=== PATIENT | male | born 1960 | race Caucasian/White ===

== ENCOUNTER 2017-04-13 06:08 | Inpatient (IN) ==
[2017-04-13] MEDS ORDERED: Tdap (Boostrix) Vaccine 0.5 ML SYRINGE IM ONE (06:17)
[2017-04-13] MEDS ORDERED: 0.9 % Sodium Chloride 1,000 ML IVC ONE (06:17)
[2017-04-13] MEDS ORDERED: Ketorolac 15 MG/ML VIAL IVP ONE (06:17)
[2017-04-13] MEDS ORDERED: Vancomycin 1,000 MG in D5% in Water 250 ML IVPB ONE (06:18)
[2017-04-13 06:35] LABS: Basophils # 0.1 K/mcL (0.0-0.2); Basophils % 0.7 %; Eosinophils # 0.2 K/mcL (0.0-0.6); Eosinophils % 2.4 %; Hematocrit 45.2 % (37.5-50.1); Hemoglobin 15.4 g/dL (12.9-16.9); Immature Granulocytes % 0.3 % (0-4); Lymphocytes # 1.4 K/mcL (0.6-4.6); Lymphocytes % 14.6 %; Mean Corpuscular HGB Conc 34.1 g/dL (31.6-35.5); Mean Corpuscular Hemoglobin 31.6 pg (28.0-33.3); Mean Corpuscular Volume 92.8 fL (83.0-100.0); Mean Platelet Volume 8.8 fL (9.4-12.4); Monocytes # 0.8 K/mcL (0.0-1.3); Monocytes % 7.6 %; Neutrophils # 7.3 K/mcL (1.6-8.9); Platelet Count 424 K/mcL (140-400); Red Blood Count 4.87 M/mcL (4.19-5.50); Red Cell Distribution Width 12.4 % (11.5-14.5); Segmented Neutrophils % 74.4 %
--- NOTE | 2017-04-13 06:40 | Emergency Department Note ---
Disposition Clinical Impression: Hyperglycemia, unspecified Septic joint of right elbow Qualifiers: Septic arthritis organism: staphylococcal Qualified Code(s): M00.021 - Staphylococcal arthritis, right elbow Disposition: Admitted As Inpatient Condition: Fair Forms: ED Satisfaction Letter Extremity Problem HPI - General Chief complaint: ED Extremity Problem,Nontraumatic Stated complaint: swollen elbow Time Seen by Provider: 04/13/17 06:12 Source: patient Mode of arrival: private vehicle Limitations: no limitations Nursing Notes Reviewed: Yes Vital Signs Reviewed: Yes - History of Present Illness Pt Subjective Complaint: joint swelling, joint paint Onset (ago): week(s) Consistency: constant, Worsening Injury Location: right Pain Scale: 7 Quality: aching Radiation: proximal, distal Improves with: immobilization Worsens with: range of motion, palpation Associated symptoms: Reports: arthralgias, change in appearance, swelling, redness. Denies: chest pain, shortness of breath, fever, myalgias Context: other (Patient was seen here on 04/03 for same. Joint was aspirated. Culture grew staph - sensitive to almost everything, including Bactrim. Patient started on Bactrim and Tdap given. Patient was supposed to F/U with AB&J on but did not go. Pain, swelling and redness are now worse. ) - Related Data Previous Rx's Medication Instructions Recorded Ibuprofen [Motrin] 600 mg PO Q6HR PRN 7 Days 04/03/17 Sulfamethoxazole/Trimeth DS 1 each PO BID 10 Days 04/03/17 [Bactrim DS] Allergies Allergy/AdvReac Type Severity Reaction Status Date / Time No Known Allergies Allergy Verified 04/03/17 19:23 All systems ED: reviewed and negative except as stated. Review of Systems: As Per HPI Constitutional: Denies: fever, chills, weakness, night sweats Cardiovascular: Denies: chest pain, palpitations, dyspnea on exertion Gastrointestinal: Denies: nausea, vomiting Musculoskeletal: Reports: as per HPI, joint swelling, arthralgia. Denies: back pain, neck pain Neurological: Denies: headache, weakness, numbness, paresthesias Hematological/Lymphatic: Denies: easy bleeding, easy bruising, lymphadenopathy Past Medical History - Past Medical History Attestation: Yes The following information was validated with the patient. Source: patient Medical history: Reports: diabetes, hypertension Psychiatric history: Reports: no psych history - Social History Smoking Status: Current every day smoker Smokeless Tobacco Status: No Alcohol use: Reports: none Drug use: Reports: none Physical Exam - General Limitations: no limitations General appearance: alert, in no apparent distress - Head Head exam: atraumatic, normocephalic, normal inspection - Eye Eye exam: Present: normal appearance, PERRL. Absent: scleral icterus, conjunctival injection, periorbital swelling - ENT ENT exam: mucous membranes moist - Neck Neck exam: Present: normal inspection - Respiratory Respiratory exam: Present: normal lung sounds bilaterally. Absent: respiratory distress - Cardiovascular Cardiovascular exam: Present: regular rate, normal rhythm, normal heart sounds - Extremities Exam Extremities exam: Present: tenderness, normal capillary refill, joint swelling ( right elbow). Absent: full ROM - Expanded Upper Extremity Exam Shoulder exam: Present: normal inspection, full ROM. Absent: tenderness, erythema Arm exam: Present: tenderness (distal right), swelling (mild, distal right lateral), erythema (distal right) Elbow exam: Present: tenderness, swelling, erythema, pain w/ pronation/ supination, tenderness over radial head. Absent: full ROM, deformity, crepitus Forearm/Wrist exam: Present: normal inspection, full ROM. Absent: tenderness, swelling Hand exam: Present: normal inspection, full ROM. Absent: tenderness, swelling Neuromotor exam: Normal: wrist extension, thumb opposition, thumb IP flexion, thumb adduction, fingers 2-5 abduction Neurosensory exam: Normal: radial nerve, ulnar nerve, median nerve Hand tendon exam: Normal: flexor digitorum profundus (location), flexor digitorum superficialis (location), extensor tendon (location) Vascular exam: Normal: capillary refill, radial pulse, ulnar pulse - Back Exam Back exam: Present: normal inspection - Neurological Exam Neurological exam: Present: alert, oriented X3, CN II-XII intact, normal gait. Absent: motor sensory deficit - Psychiatric Psychiatric exam: Present: normal affect, normal mood - Skin Skin exam: Present: warm, dry, intact Course Course Narrative: Patient was seen here on April 03 for right elbow redness, swelling and pain. He had labs and an x-ray done as well as a joint aspiration with culture, and crystal analysis. He was given Bactrim T dap and NSAIDs and was given a follow- up appointment to be seen by [facility] on the at [facility]. He did not follow-up and states that he thinks there were only 10 Bactrim capsules in the bottle of antibiotics prescribed for him. He has had increased pain, swelling and redness, but denies fever, chills, nausea, vomiting or malaise. He also denies paresthesias or weakness. He denies known trauma to the elbow. However , there is an abrasion on the olecranon. Labs and repeat imaging ordered. Vancomycin and toradol ordered. Patient has essentially failed outpatient treatment of probable septic joint. Ortho will be consulted at [address] De La Torre was previously consulted on April 03 and he is on today at 8 AM. Hospitalist has been paged for admission as the patient has multiple co-morbidities. Case was discusssed with Dr. Hussein. He has seen the patient, reviewed the lab and xray findings, and agrees with the assessment and plan. Vital Signs Temperature 98 F 04/13/17 06:09 Pulse Rate 89 04/13/17 06:09 Respiratory Rate 18 04/13/17 06:09 Blood Pressure 127/87 04/13/17 06:09 O2 Sat by Pulse Oximetry 96 04/13/17 06:09 Temperature 98 F 04/13/17 06:09 Pulse Rate 89 04/13/17 06:09 Respiratory Rate 18 04/13/17 06:09 Blood Pressure 127/87 04/13/17 06:09 O2 Sat by Pulse Oximetry 96 04/13/17 06:09 Oxygen Delivery Oxygen Delivery Room Air Extremity Problem, Nontraumati - Medical Records Medical records reviewed: Yes I reviewed the patient's medical records. - Lab Data Lab results reviewed: Yes I reviewed the patient's lab results. Lab results narrative: Laboratory Last Values WBC 9.9 K/mcL (4.3-11.1) 04/13/17 06:27 RBC 4.87 M/mcL (4.19-5.50) 04/13/17 06:27 Hgb 15.4 g/dL (12.9-16.9) 04/13/17 06:27 Hct 45.2 % (37.5-50.1) 04/13/17 06:27 MCV 92.8 fL (83.0-100.0) 04/13/17 06:27 MCH 31.6 pg (28.0-33.3) 04/13/17 06: MCHC 34.1 g/dL (31.6-35.5) 04/13/17 06: RDW 12.4 % (11.5-14.5) 04/13/17 06:27 Plt Count 424 K/mcL (140-400) H 04/13/17 06:27 MPV 8.8 fL (9.4-12.4) L 04/13/17 06: Immature Gran % 0.3 % (0-4) 04/13/17 06: Seg Neutrophils % 74.4 % 04/13/17 06: Lymphocytes % 14.6 % 04/13/17 06: Monocytes % 7.6 % 04/13/17 06: Eosinophils % 2.4 % 04/13/17 06: Basophils % 0.7 % 04/13/17 06: Neutrophils # 7.3 K/mcL (1.6-8.9) 04/13/17 06: Lymphocytes # 1.4 K/mcL (0.6-4.6) 04/13/17 06:27 Monocytes # 0.8 K/mcL (0.0-1.3) 04/13/17 06: Eosinophils # 0.2 K/mcL (0.0-0.6) 04/13/17 06: Basophils # 0.1 K/mcL (0.0-0.2) 04/13/17 06:27 ESR >= 130 mm/hr (0-10) H 04/13/17 06:27 Sodium 133 mEq/L (136-145) L 04/13/17 06:27 Potassium 4.1 mEq/L (3.5-4.5) 04/13/17 06: Chloride 96 mEq/L (98-109) L 04/13/17 06: Carbon Dioxide 28 mEq/L (19-29) 04/13/17 06:27 BUN 14 mg/dL (8-26) 04/13/17 06:27 Creatinine 0.96 mg/dL (0.72-1.25) 04/13/17 06:27 Est GFR ( Amer) > 60 (> 60) 04/13/17 06:27 Est GFR (Non-Af Amer) > 60 (> 60) 04/13/17 06:27 BUN/Creatinine Ratio 15 (6-26) 04/13/17 06:27 Glucose 321 mg/dL (70-99) H 04/13/17 06:27 Calculated Osmolality 289 (280-300) 04/13/17 06:27 Calcium 10.1 mg/dL (8.6-10.8) 04/13/17 06:27 C-Reactive Protein 79 mg/L (Less than 5) H 04/13/17 06:27 Result diagrams: 04/13/17 06:27 Lab Results 04/13/17 Range/Units 06:27 WBC 9.9 (4.3-11.1) K/mcL RBC 4.87 (4.19-5.50) M/mcL Hgb 15.4 (12.9-16.9) g/dL Hct 45.2 (37.5-50.1) % MCV 92.8 (83.0-100.0) fL MCH 31.6 (28.0-33.3) pg MCHC 34.1 (31.6-35.5) g/dL RDW 12.4 (11.5-14.5) % Plt Count 424 H (140-400) K/mcL MPV 8.8 L (9.4-12.4) fL Immature Gran % 0.3 (0-4) % Seg Neutrophils % 74.4 % Lymphocytes % 14.6 % Monocytes % 7.6 % Eosinophils % 2.4 % Basophils % 0.7 % Neutrophils # 7.3 (1.6-8.9) K/mcL Lymphocytes # 1.4 (0.6-4.6) K/mcL Monocytes # 0.8 (0.0-1.3) K/mcL Eosinophils # 0.2 (0.0-0.6) K/mcL Basophils # 0.1 (0.0-0.2) K/mcL - Radiology Data Radiology results reviewed: Yes I reviewed the patient's radiology results. Elbow X-Ray 04/13/17 06:18 IMPRESSION: 1. Suspected avulsion injury of an olecranon enthesophyte at the insertion of the right triceps brachii tendon with new mild superior displacement. 2. Persistent soft tissue swelling posterior to the right olecranon process potentially due to hematoma, cellulitis, or olecranon bursitis. 3. Persistent moderate right elbow joint effusion with no visualized intra-articular fracture. A tiny bony fragment adjacent to the right ulnar coronary process appears related to remote injury. D/ / Shai Hankins MD / Shai Hankins MD Interpreting Provider: Shai Hankins MD
[2017-04-13 06:48] LABS: BUN/Creatinine Ratio 15 (6-26); Blood Urea Nitrogen 14 mg/dL (8-26); Calcium 10.1 mg/dL (8.6-10.8); Carbon Dioxide 28 mEq/L (19-29); Chloride 96 mEq/L (98-109); Glucose 321 mg/dL (70-99); Osmolality,Calculated 289 (280-300); Potassium 4.1 mEq/L (3.5-4.5); Sodium 133 mEq/L (136-145); eGFR For African Americans > 60 (> 60); eGFR For Non-African Americans > 60 (> 60)
--- NOTE | 2017-04-13 07:02 | Emergency Department Note ---
Disposition Clinical Impression: Septic joint of right elbow, Hyperglycemia, unspecified Disposition: Admitted As Inpatient Condition: Fair General Adult HPI - General Chief complaint: ED Extremity Problem,Nontraumatic Stated complaint: swollen elbow Time Seen by Provider: 04/13/17 06:12 Source: patient Mode of arrival: private vehicle Limitations: no limitations - History of Present Illness Pain Scale: 7 - Related Data Home Medications Medication Instructions Recorded Confirmed No Known Home Drugs 04/13/17 04/13/17 Allergies Allergy/AdvReac Type Severity Reaction Status Date / Time No Known Allergies Allergy Verified 04/03/17 19:23 Constitutional: Denies: fever, chills, weakness, night sweats Cardiovascular: Denies: chest pain, palpitations, dyspnea on exertion Gastrointestinal: Denies: nausea, vomiting Musculoskeletal: Reports: as per HPI, joint swelling, arthralgia. Denies: back pain, neck pain Neurological: Denies: headache, weakness, numbness, paresthesias Hematological/Lymphatic: Denies: easy bleeding, easy bruising, lymphadenopathy Past Medical History - Past Medical History Medical history: Reports: diabetes, hypertension Psychiatric history: Reports: no psych history - Social History Smoking Status: Current every day smoker Smokeless Tobacco Status: No Alcohol use: Reports: none Drug use: Reports: none Physical Exam - General Limitations: no limitations General appearance: alert, in no apparent distress Course Vital Signs Temperature 98 F 04/13/17 06:09 Pulse Rate 89 04/13/17 06:09 Respiratory Rate 18 04/13/17 06:09 Blood Pressure 127/87 04/13/17 06:09 O2 Sat by Pulse Oximetry 96 04/13/17 06:09 Temperature 98.4 F 04/14/17 06:41 Pulse Rate 73 04/14/17 06:41 Respiratory Rate 16 04/14/17 06:41 Blood Pressure 104/73 04/14/17 06:41 O2 Sat by Pulse Oximetry 97 04/14/17 06:41 Oxygen Delivery Oxygen Delivery Room Air Medical Decision Making - Lab Data Result diagrams: 04/14/17 05:44 04/13/17 06:27 Lab Results 04/13/17 04/13/17 04/13/17 Range/Units 06:27 06:27 06:27 WBC 9.9 (4.3-11.1) K/mcL RBC 4.87 (4.19-5.50) M/mcL Hgb 15.4 (12.9-16.9) g/dL Hct 45.2 (37.5-50.1) % MCV 92.8 (83.0-100.0) fL MCH 31.6 (28.0-33.3) pg MCHC 34.1 (31.6-35.5) g/dL RDW 12.4 (11.5-14.5) % Plt Count 424 H (140-400) K/mcL MPV 8.8 L (9.4-12.4) fL Immature Gran % 0.3 (0-4) % Seg Neutrophils % 74.4 % Lymphocytes % 14.6 % Monocytes % 7.6 % Eosinophils % 2.4 % Basophils % 0.7 % Neutrophils # 7.3 (1.6-8.9) K/mcL Lymphocytes # 1.4 (0.6-4.6) K/mcL Monocytes # 0.8 (0.0-1.3) K/mcL Eosinophils # 0.2 (0.0-0.6) K/mcL Basophils # 0.1 (0.0-0.2) K/mcL ESR >= 130 H (0-10) mm/hr Sodium 133 L (136-145) mEq/L Potassium 4.1 (3.5-4.5) mEq/L Chloride 96 L (98-109) mEq/L Carbon Dioxide 28 (19-29) mEq/L BUN 14 (8-26) mg/dL Creatinine 0.96 (0.72-1.25) mg/dL Est GFR ( Amer) > 60 (> 60) Est GFR (Non-Af Amer) > 60 (> 60) BUN/Creatinine Ratio 15 (6-26) Glucose 321 H (70-99) mg/dL Calculated Osmolality 289 (280-300) Calcium 10.1 (8.6-10.8) mg/dL C-Reactive Protein (Less than 5) mg/L 04/13/17 Range/Units 06:27 WBC (4.3-11.1) K/mcL RBC (4.19-5.50) M/mcL Hgb (12.9-16.9) g/dL Hct (37.5-50.1) % MCV (83.0-100.0) fL MCH (28.0-33.3) pg MCHC (31.6-35.5) g/dL RDW (11.5-14.5) % Plt Count (140-400) K/mcL MPV (9.4-12.4) fL Immature Gran % (0-4) % Seg Neutrophils % % Lymphocytes % % Monocytes % % Eosinophils % % Basophils % % Neutrophils # (1.6-8.9) K/mcL Lymphocytes # (0.6-4.6) K/mcL Monocytes # (0.0-1.3) K/mcL Eosinophils # (0.0-0.6) K/mcL Basophils # (0.0-0.2) K/mcL ESR (0-10) mm/hr Sodium (136-145) mEq/L Potassium (3.5-4.5) mEq/L Chloride (98-109) mEq/L Carbon Dioxide (19-29) mEq/L BUN (8-26) mg/dL Creatinine (0.72-1.25) mg/dL Est GFR ( Amer) (> 60) Est GFR (Non-Af Amer) (> 60) BUN/Creatinine Ratio (6-26) Glucose (70-99) mg/dL Calculated Osmolality (280-300) Calcium (8.6-10.8) mg/dL C-Reactive Protein 79 H (Less than 5) mg/L Attestation Statement - Attestation Attestation: I examined this patient and my medical decision-making was reviewed with the [facility]. I agree with the documented findings, disposition and treatment plan as described except to the extent set forth below. [id number] time provided Patient continues to have a swollen, tender right elbow. Symptoms mostly to the posterior portion of his elbow. He recently had bursa aspiration by the mid -level provider. He was prescribed Bactrim but symptoms persist. Patient does have swelling over his olecranon bursa on exam. The [facility] is going to request admission to the hospitalist service with orthopedic consultation
[2017-04-13] MEDS ORDERED: *HR* Morphine 2 MG/ML SYRINGE IVP PRN (08:21)
[2017-04-13] MEDS ORDERED: Ketorolac 30 MG/ML VIAL IVP PRN (08:21)
[2017-04-13] MEDS ORDERED: Naloxone 0.4 MG/ML INJ IVP PRN (08:21)
[2017-04-13] MEDS ORDERED: *HR* Dextrose 50 % in Water (Syg) 50 ML SYRINGE IVP PRN (08:23)
[2017-04-13] MEDS ORDERED: Dextrose Gel 15 GM PO PRN ×2 (08:23)
[2017-04-13] MEDS ORDERED: D5% in Water 1,000 ML IVC PRN (08:23)
--- NOTE | 2017-04-13 10:00 | Internal Med History&Physical ---
Date of Encounter: 04/13/17 Time of Encounter: 08:35 Assessment and Plan (1) Cellulitis of right elbow Current visit: Yes Status: Acute Will admit for failed outpatient therapy Given worsening ESR and CRP, will continue with empiric IV abx ID and ortho consultation requested f/u blood cultures pain control (2) Olecranon bursitis Current visit: Yes Status: Acute ortho consultation requested by the ER physician will continue plan as listed above Qualifiers: Laterality: right Qualified Code(s): M70.21 - Olecranon bursitis, right elbow (3) Uncontrolled diabetes mellitus Current visit: Yes Status: Chronic Patient reports of not being on any medications for the last four months, states he is not able to afford these medications will obtain HbA1c continue sliding scale insulin algorithm monitor fingerstick and blood glucose Qualifiers: Diabetes mellitus type: type 2 Diabetes mellitus complication status: with unspecified complications Diabetes mellitus manager long term care insulin use: unspecified manager long term care insulin use status Qualified Code(s): E11.8 - Type 2 diabetes mellitus with unspecified complications; E11.65 - Type 2 diabetes mellitus with hyperglycemia (4) Hypertension Current visit: Yes Status: Chronic Reported history of HTN, however not on any antihypertensive medications at this time BP within acceptable range will continue to monitor Qualifiers: Hypertension type: essential hypertension Qualified Code(s): I10 - Essential (primary) hypertension (5) DVT prophylaxis Current visit: Yes Status: Acute Heparin SQ (6) Tobacco abuse Current visit: Yes Status: Acute smoking cessation counseling provided patient not ready to quit at this time refused nicotine replacement therapy (7) Medical non-compliance Current visit: Yes Status: Chronic social services specialist consultation as patient is not able to afford his medications Internal Medicine - H&P: HPI Chief complaint: right elbow pain Admitted From: Home Plans for Post Hospital Care: Home History of present illness: Mr. Sierra is a 56 year old male with PMH of HTN, DM, tobacco abuse, med noncompliance presents to the ER for worsening right elbow edema and redness. Patient was recently seen in the ER for right elbow bursitis and was discharged with PO Bactrim. He was asked to return if his symptoms persists. He reports of worsening of right elbow swelling and redness. During my evaluation, patient states he has been out of his medications for HTN and DM for four months now and he has been taking the antibiotic as prescribed. He denies any fevers or chills but reports discomfort in moving his right elbow. Denies any headache, chest pain, sob, abd pain, n/v, fever, or chills at this time. Social history: Every day smoker code status: Full code Past Med Surg Social Fam HX - Past Medical History Medical history: diabetes, hypertension Psychiatric history: no psych history - Social History Smoking Status: Current every day smoker Smokeless Tobacco Status: No Alcohol use: none Drug use: none - Family History Father Living Status: Cause of : heart attack Hx Family Cardiac Disorders: Yes Mother Living Status: Cause of : heart attack Hx Family Cardiac Disorders: Yes Internal Medicine - H&P: Meds No Known Home Drugs 04/13/17 [History] 3 Allergy/AdvReac Type Severity Reaction Status Date / Time No Known Allergies Allergy Verified 04/03/17 19:23 All Systems PM: A 10-system review of systems was performed and is negative for pertinent findings except as documented above in the HPI. - Constitutional Constitutional: as per HPI - Constitutional Vitals: Temp Pulse Resp BP Pulse Ox 98 F 79 18 111/79 96 04/13/17 06:09 04/13/17 08:30 04/13/17 09:11 04/13/17 09:11 04/13/17 08:30 General appearance: Present: A&O X 3, no acute distress, answers questions appropriately - Head Head exam: Present: atraumatic, normocephalic - Eye Eye exam: Present: conjuntiva pink, sclera anicteric - Respiratory Respiratory exam: Present: CTAB. Absent: respiratory distress, wheezes - Cardiovascular Cardiovascular exam: Present: RRR, +S1, +S2. Absent: diastolic murmur, gallop, rubs, systolic murmur - GI/Abdominal GI/Abdominal exam: Present: normal bowel sounds, soft, no peritoneal signs. Absent: distended, tenderness - Extremities Exam Extremities exam: Present: pedal edema (b/l LE pedal edema ), warm, radial pulses palpable and symmetrical. Absent: calf tenderness Additional comments: right elbow diffuse erythema and edema noted - Neurological Exam Neurological exam: Present: alert, oriented X3 - Psychiatric Psychiatric exam: Present: normal affect, normal mood Internal Med - H&P Results - Labs CBC & Chem 7: 04/13/17 06:27 04/13/17 06:27
--- NOTE | 2017-04-13 10:59 | Infectious Disease Consult ---
Date of Encounter: 04/13/17 Time of Encounter: 10:56 Assessment and Plan (1) Septic joint of right elbow Status: Acute Assessment and plan: Location: Right elbow. Etiology unclear. The patient denies any known traumatic injury prior to the onset of symptoms. Causative organism MSSA based on joint aspiration performed 04/03/17. Failed outpatient oral antibiotic therapy (five days of PO Bactrim). ESR >130. CRP 79. The patient has no SIRS criteria. X-ray of the right elbow shows a suspected avulsion injury of an olecranon enthesophyte at the insertion of the right triceps brachii tendon with new mild superior displacement, persistent soft tissue swelling posterior to the right olecranon process potentially due to hematoma, cellulitis, or olecranon bursitis , and persistent moderate right elbow joint effusion with no visualized intra- articular fracture. A tiny bony fragment adjacent to the right ulnar coronary process appears related to remote injury. Ortho has been consulted. Await their recommendations. Start cefazolin 2 grams IV Q8H. Duration of treatment depends on the clinical picture. Monitor renal function and dose-adjust antibiotics. Qualifiers: Septic arthritis organism: staphylococcal Qualified Code(s): M00.021 - Staphylococcal arthritis, right elbow (2) Cellulitis of right elbow Status: Acute Assessment and plan: Causative organism likely MSSA. Failed outpatient oral antibiotic therapy. Etiology not entirely clear since the patient denies trauma/injury, but there is a superficial abrasion noted to the posterior elbow. Await ortho's evaluation. Antibiotic recommendations as above. (3) Hypertension Status: Chronic Qualifiers: Hypertension type: essential hypertension Qualified Code(s): I10 - Essential (primary) hypertension (4) Tobacco abuse Status: Acute (5) Medical non-compliance Status: Chronic Assessment and plan: Has not been on his oral antihyperglycemics for about a month. Did not follow up with ortho as recommended. (6) Uncontrolled diabetes mellitus Status: Chronic Assessment and plan: Check HgbA1C. Recommend aggressive glucose monitoring and control to promote wound healing and prevent re-infection. Further management per the primary team. 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 Sierra is a 56 year old male is medical history of hypertension, diabetes, and tobacco abuse. The patient was admitted to the hospital April 12 for right elbow cellulitis. We are consulted April 13 for further evaluation and treatment recommendations regarding right elbow cellulitis. Patient is a 56-year-old male with past medical history as stated above. The patient reports that about a week ago he began to notice increased pain, swelling, and redness of the right elbow. He presented to the emergency department where he had a joint aspiration which revealed MSSA and the synovial fluid. He was treated with a 5 day course of oral Bactrim, but he did not noticed any improvement and the symptoms have continued to get worse. The patient was also instructed to follow up with orthopedics, which she did not. Upon arrival to the ER for this hospitalization, the patient was afebrile and hemodynamically stable. His white blood cell count normal. His ESR was markedly elevated at greater than 130 and a CRP was 79. Elbow x-ray revealed a suspected avulsion injury of an olecranon and the Rocio at the insertion of the right triceps break I tendon with new mild superior displacement, persistent soft tissue swelling posterior to the right olecranon process potentially due to hematoma, cellulitis, or olecranon bursitis, and persistent moderate right elbow joint effusion with no visualized intra-articular fracture. There is also noted to be a tiny bony fragment adjacent to the right ulnar coronary process that appears related to a remote injury. The patient was given a one-time dose of IV vancomycin. He was admitted to the hospital for further evaluation and treatment. Since admission, the patient has remained afebrile and hemodynamically stable. Orthopedics has been consulted and we are awaiting their recommendations. During my exam today, the patient endorses the history as stated above. He denies any fevers or chills or rigors. He denies any headache or neck pain. He denies any congestion, earache, or sore throat. He reports a chronic moist cough secondary to tobacco abuse, but denies any chest pain or shortness of breath. He denies any nausea, vomiting, diarrhea, or constipation. Her appetite changes. He is a diabetic but has been off his oral antihyperglycemic medications for about a month now and he does not check his glucose at home. He denies any oral thrush or new skin lesions. He states he was recently released from long term a couple of months ago where he spent 4 years. He denies any known chronic infections. CT smokes about a pack of cigarettes per day. He denies any alcohol or illicit drug use now or in the past. CC: Rodríguez Patel MD Past Med Surg Social Fam HX - Past Medical History Attestation: Yes The following information was validated with the patient. Source: patient, old records reviewed, nursing notes reviewed Medical history: diabetes, hypertension Psychiatric history: no psych history - Past Surgical History Surgical History: no surgical history - Social History Smoking Status: Current every day smoker Packs per day: 1 Smokeless Tobacco Status: No Alcohol use: none Drug use: none Occupational status: unemployed Current living situation: Home - Independent Activity Level: Independent ambulation Recent Out of Country Travel Within the Last 8 Weeks: No Exposure or Possible Exposure to Illness During Travel: No - Family History Father Living Status: Cause of : heart attack Hx Family Cardiac Disorders: Yes Mother Living Status: Cause of : heart attack Hx Family Cardiac Disorders: Yes Infectious Disease-CN:Meds No Known Home Drugs 04/13/17 [History] 3 Allergy/AdvReac Type Severity Reaction Status Date / Time No Known Allergies Allergy Verified 04/03/17 19:23 All systems: reviewed and no additional remarkable complaints except as stated Exam - Constitutional Vitals: Temp Pulse Resp BP Pulse Ox 98.4 F 76 18 124/76 97 04/13/17 10:03 04/13/17 10:03 04/13/17 10:03 04/13/17 10:03 04/13/17 10:03 General appearance: average body habitus, cooperative, no acute distress - Head Head exam: Present: atraumatic, normal inspection, normocephalic - Eye Eye exam: Present: EOMI, normal appearance, PERRL Pupils: Present: normal accommodation - ENT ENT exam: Present: mucous membranes moist - Neck Neck exam: Present: normal inspection - Respiratory Respiratory exam: Present: CTAB. Absent: rales, respiratory distress, rhonchi, wheezes - Cardiovascular Cardiovascular exam: Present: RRR, +S1, +S2 - GI/Abdominal GI/Abdominal exam: Present: normal bowel sounds, soft. Absent: distended, tenderness - Extremities Exam Extremities exam: Present: joint swelling (Right elbow), tenderness (Right posterior upper arm, right elbow) - Neurological Exam Neurological exam: Present: alert, oriented X3, no focal deficits - Psychiatric Psychiatric exam: Present: normal affect, normal mood - Skin Skin exam: Present: dry, intact, normal color, warm Infectious Disease CN: Results - Labs CBC & Chem 7: 04/13/17 06:27 04/13/17 06:27 Consult Discharge Plan - Plan Referrals: Unassigned,Provider [Primary Care Provider] -
[2017-04-13] MEDS ORDERED: Vancomycin 500 MG in D5% in Water (Mini-Bag+) 100 ML IVPB ONE (11:00)
[2017-04-13] MEDS: Piperacillin/Tazobactam 3.375 GM in D5% in Water (Mini-Bag+) 100 ML IVPB SCH ×2 (11:24→17:54)
[2017-04-13] MEDS: Insulin LISPRO 300 UNITS/3 ML VIAL SQ SCH ×3 (12:55→22:01)
[2017-04-13] MEDS: *HR* Heparin 5,000 UNIT/ML VIAL SQ SCH ×2 (12:56→22:01)
--- NOTE | 2017-04-13 17:45 | Orthopedic Consult Note ---
Date of Encounter: 04/13/17 Time of Encounter: 17:40 Assessment and Plan (1) Olecranon bursitis Current Visit: Yes Status: Acute I did discuss the diagnosis in detail with the patient. He has a septic right olecranon bursitis with concern for underlying osteomyelitis. My suspicion for septic arthritis of the elbow joint itself is exceedingly low. An MRI with contrast of the right elbow has been ordered to confirm the suspicion of osteomyelitis and to evaluate the extent. I did discuss treatment options with the patient and given the bony resorption my recommendation was for open debridement and irrigation of the right olecranon bursa and bony curettage. The risks discussed included but were not limited to stiffness, bleeding, infection, blood clots, damage to neurovascular structures, tendons, ligaments, and bone. Also discussed was the risk of continued symptoms and possible need for further procedures. I did discuss the anesthesia risks including stroke, heart attack, and . I did discuss the reasonable, foreseeable postoperative course. He will likely require 6 weeks of IV antibiotics. The patient is at risk for soft tissue envelope healing issues given his diabetes. I explained all this to the patient in simple terms and he did wish to proceed. Surgery is planned for tomorrow morning. Qualifiers: Laterality: right Qualified Code(s): M70.21 - Olecranon bursitis, right elbow History of Present Illness Chief complaint: Olecranon Bursitis on right HPI: Mr. Sierra is a 56 year old right hand dominant male who is a diabetic. He presented to the ER about 10 days ago with a 3 day history of posterior elbow pain. He was diagnosed with septic olecranon bursa and the bursa was aspirated and he was discharged with Bactrim. The bursal fluid and that up growing MSSA. The patient neglected to follow-up, saying that he forgot. He represented to the emergency department today due to persistent symptoms regarding the right posterior elbow. He says the pain is sharp and about a 6 out of 10 at its worse with motion and better at rest. He said last night he did not get any sleep. He denies any feelings of illness. He denies any traumatic history regarding the right elbow and he denies any other pains. He does feel that the redness has improved slightly, but the pain has been persistent. He does have a history of gout. He denies any numbness, tingling, or any other associated signs or symptoms or modifying factors. The patient does indicate that he is supposed to be on diabetic medications, however he has not taken them for over a month and he does not check his blood sugars. Past Med Surg Social Fam HX - Past Medical History Medical history: diabetes, hypertension Psychiatric history: no psych history - Past Surgical History Surgical History: no surgical history - Social History Smoking Status: Current every day smoker Packs per day: 1 Smokeless Tobacco Status: No Alcohol use: none Drug use: none - Family History Father Living Status: Cause of : heart attack Hx Family Cardiac Disorders: Yes Mother Living Status: Cause of : heart attack Hx Family Cardiac Disorders: Yes Medications and Allergies No Known Home Drugs 04/13/17 [History] 3 Allergy/AdvReac Type Severity Reaction Status Date / Time No Known Allergies Allergy Verified 04/03/17 19:23 All Systems Reviewed: Constitutional and musculoskeletal systems were reviewed and are negative unless otherwise stated in history of present illness. Physical Exam - Constitutional Vitals: Temp Pulse Resp BP Pulse Ox 98.7 F 78 16 127/68 95 04/13/17 15:18 04/13/17 15:18 04/13/17 15:18 04/13/17 15:18 04/13/17 15:18 CONSTITUTIONAL -Vitals reviewed -The patient is well developed, well nourished, well groomed PSYCHIATRIC -Fully alert and oriented x 3 -Pleasant mood RIGHT UPPER EXTREMITY Inspection shows diffuse pitting edema over the olecranon. The skin is intact with mild erythema over the olecranon without any fluctuance. There is tenderness to palpation directly over the olecranon. No other tenderness to the right upper extremity. No deformities. He has full active and passive motion of the shoulder and wrist. The elbow is actually quite stiff and I can only range him from 45 degrees to 90 due to mechanical stiffness. Within this range she has no pain with motion of the elbow and he has full pronation and supination which is painless. He does have significant weakness with elbow extension, which is 3 out of 5. Good strength otherwise with elbow flexion, wrist flexion and extension, and load dispatcher local. The patient can actively flex and extend all digits, extend the thumb, cross the index and long fingers, make an okay sign, and oppose the thumb. The fingertips are all grossly sensate and well-perfused, and the radial artery pulse is 2+. Diagnostic Imaging: I did personally review and interpret x-rays from 10 days ago of the right elbow as well as x-rays of the right elbow obtained today. Noted is soft tissue swelling and edema in the olecranon bursal area as seen on the lateral. There does appear to be bony resorption of the olecranon on the lateral obtained today which was not present previously. There also has been a lotion of small bony spurs. An effusion is seen. Results - Labs Result Diagrams: 04/13/17 06:04/13/17 06:27 Labs: Abnormal lab results Plt Count 424 K/mcL (140-400) H 04/13/17 06:27 MPV 8.8 fL (9.4-12.4) L 04/13/17 06:27 ESR >= 130 mm/hr (0-10) H 04/13/17 06:27 Sodium 133 mEq/L (136-145) L 04/13/17 06: Chloride 96 mEq/L (98-109) L 04/13/17: Glucose 321 mg/dL (70-99) H 04/13/17 06: C-Reactive Protein 79 mg/L (Less than 5) H 04/13/17 06: All other labs normal. Consult Discharge Plan - Plan Referrals: Unassigned,Provider [Primary Care Provider] -
[2017-04-13] MEDS ORDERED: Ketorolac 30 MG/ML VIAL IVP ONE (17:46)
[2017-04-13] MEDS ORDERED: Vancomycin 1,000 MG in D5% in Water 250 ML IVPB SCH (18:00)
[2017-04-13] MEDS: Ibuprofen 600 MG TABLET PO PRN (22:04)
[2017-04-13] MEDS ORDERED: Vancomycin 1,250 MG in D5% in Water 250 ML IVPB SCH (23:00)
[2017-04-14] MEDS: *HR* Heparin 5,000 UNIT/ML VIAL SQ SCH ×3 (05:29→21:32)
[2017-04-14 06:05] LABS: Basophils # 0.1 K/mcL (0.0-0.2); Basophils % 0.8 %; Eosinophils # 0.3 K/mcL (0.0-0.6); Eosinophils % 4.2 %; Immature Granulocytes % 0.3 % (0-4); Lymphocytes # 1.3 K/mcL (0.6-4.6); Lymphocytes % 16.6 %; Mean Corpuscular HGB Conc 33.4 g/dL (31.6-35.5); Mean Corpuscular Hemoglobin 31.4 pg (28.0-33.3); Mean Corpuscular Volume 93.8 fL (83.0-100.0); Mean Platelet Volume 9.2 fL (9.4-12.4); Monocytes # 0.7 K/mcL (0.0-1.3); Monocytes % 9.5 %; Neutrophils # 5.2 K/mcL (1.6-8.9); Platelet Count 373 K/mcL (140-400); Red Blood Count 4.37 M/mcL (4.19-5.50); Red Cell Distribution Width 12.3 % (11.5-14.5); Segmented Neutrophils % 68.6 %
[2017-04-14 06:07] LABS: Hemoglobin 13.7 g/dL (12.9-16.9)
[2017-04-14 06:18] LABS: Hemoglobin A1C 12.1 %
[2017-04-14] MEDS ORDERED: Aminoglycoside Consult 1 EACH MC ONE (08:39)
[2017-04-14 08:41] LABS: BUN/Creatinine Ratio 15 (6-26); Blood Urea Nitrogen 13 mg/dL (8-26); Calcium 8.8 mg/dL (8.6-10.8); Carbon Dioxide 23 mEq/L (19-29); Chloride 103 mEq/L (98-109); Glucose 169 mg/dL (70-99); Magnesium 1.4 mg/dL (1.6-2.6); Osmolality,Calculated 286 (280-300); Phosphorous 3.5 mg/dL (2.3-4.7); Sodium 136 mEq/L (136-145); eGFR For African Americans > 60 (> 60); eGFR For Non-African Americans > 60 (> 60)
[2017-04-14 08:45] LABS: Potassium 5.4 mEq/L (3.5-4.5)
[2017-04-14] MEDS: Piperacillin/Tazobactam 3.375 GM in D5% in Water (Mini-Bag+) 100 ML IVPB SCH ×2 (09:10)
[2017-04-14] MEDS: Insulin LISPRO 300 UNITS/3 ML VIAL SQ SCH ×4 (09:10→21:33)
--- NOTE | 2017-04-14 09:46 | Orthopedics Progress Note ---
Date of Encounter: 04/14/17 Time of Encounter: 09:42 - Assessment and Plan (1) Olecranon bursitis Current Visit: Yes Status: Acute I did discuss the diagnosis in detail with the patient. He has a septic right olecranon bursitis with concern for underlying osteomyelitis. My suspicion for septic arthritis of the elbow joint itself is exceedingly low. An MRI with contrast of the right elbow has been ordered to confirm the suspicion of osteomyelitis and to evaluate the extent. I did discuss treatment options with the patient and given the bony resorption my recommendation was for open debridement and irrigation of the right olecranon bursa and bony curettage. The risks discussed included but were not limited to stiffness, bleeding, infection, blood clots, damage to neurovascular structures, tendons, ligaments, and bone. Also discussed was the risk of continued symptoms and possible need for further procedures. I did discuss the anesthesia risks including stroke, heart attack, and . I did discuss the reasonable, foreseeable postoperative course. He will likely require 6 weeks of IV antibiotics. The patient is at risk for soft tissue envelope healing issues given his diabetes. I explained all this to the patient in simple terms and he did wish to proceed. Surgery is planned for tomorrow morning. Qualifiers: Laterality: right Qualified Code(s): M70.21 - Olecranon bursitis, right elbow Subjective Interval history: S: Evaluation this morning shows persistent olecranon bursal pain. Currently he says it is about an 8 out of 10. No numbness, tingling, or any other associated signs or symptoms. No new complaints. O: Afebrile and the vitals are stable Edema and swelling to the olecranon bursa with tenderness to palpation over the olecranon. No fluctuance. The right elbow is stiff though I can passively range from 45-90 with no pain and he has full pronation and supination without pain. The patient can actively flex and extend all digits, extend the thumb, cross the index and long fingers, make an okay sign, and oppose the thumb. The fingertips are all grossly sensate and well-perfused, and the radial artery pulse is 2+. MRI did show edema in the olecranon with tendinopathy at the insertion of the triceps. A: Right septic olecranon bursitis with concern for underlying osteomyelitis of the olecranon given the x-ray and MRI findings as well as the clinical picture P: I did rediscuss treatment options and my recommendation was for operative debridement and irrigation of the olecranon bursa as well as bony curettage for culture, and biopsy. I anticipate 6 weeks of IV antibiotics. I did discuss with the patient that given his hemoglobin A1c that his diabetes is significantly out of control and will contribute to morbidity and possible wound healing issues. The risks discussed included but were not limited to stiffness, bleeding, infection, blood clots, damage to neurovascular structures, tendons, ligaments, and bone. Also discussed was the risk of continued symptoms and possible need for further procedures. I did discuss the anesthesia risks including stroke, heart attack, and . I did discuss this all with the patient in simple terms and he did wish to proceed and consent was obtained. Objective Vital signs: Vital Signs Temp Pulse Resp BP Pulse Ox 04/14/17 06:41 98.4 F 73 16 104/73 97 04/14/17 03:22 98.0 F 65 16 102/70 95 04/13/17 23:58 97.7 F 64 14 137/72 95 04/13/17 20:10 97.9 F 78 16 153/82 94 04/13/17 15:18 98.7 F 78 16 127/68 95 04/13/17 10:03 98.4 F 76 18 124/76 97 Intake and Output 04/13/17 04/14/17 04/14/17 23:59 07:59 15:59 Intake Total 100 / 100 850 / 850 Balance 100 / 100 850 / 850 Intake: IV Fluids 100 / 100 350 / 350 Zosyn 3.375 GM In 100 / 100 100 / 100 Dextrose 5% (Minibag+) 100 ML 100 ML @ 25 mls/hr IVPB Q8HR [facility] Rx#: [id number] Vancocin 1,250 MG In 250 / 250 Dextrose 5% 250 ML @ 166. 67 mls/hr IVPB Q12H [facility] Rx#:[id number] Oral 500 / 500 Other: # Voids 1 1 Weight 86.6 kg Blood Glucose* 179 175 Patient Weight 04/14/17 23:59 Weight 86.6 kg - Labs CBC & BMP: 04/14/17 05:44 04/14/17 06:50 Labs: Abnormal lab results MPV 9.2 fL (9.4-12.4) L 04/14/17 05:44 ESR >= 130 mm/hr (0-10) H 04/13/17 06:27 Potassium 5.4 mEq/L (3.5-4.5) H D 04/14/17 06:50 Glucose 169 mg/dL (70-99) H 04/14/17 06:50 POC Glucose 180 (58-89) H 04/13/17 16:18 Hemoglobin A1c 12.1 % (-5.6) H 04/14/17 05:44 Magnesium 1.4 mg/dL (1.6-2.6) L 04/14/17 06:50 C-Reactive Protein 79 mg/L (Less than 5) H 04/13/17 06:27 Consult Discharge Plan - Plan Referrals: Unassigned,Provider [Primary Care Provider] -
[2017-04-14] MEDS ORDERED: *HR* FentaNYL (PF) 100 MCG/2 ML VIAL ONE (10:17)
[2017-04-14] MEDS ORDERED: *HR* Propofol 200 MG/20 ML VIAL IVP ONE (10:17)
[2017-04-14] MEDS ORDERED: Lidocaine -MPF 2% 2 ML VIAL ONE (10:17)
[2017-04-14] MEDS: Acetaminophen 325 MG TABLET PO PRN ×3 (10:46→22:34)
--- NOTE | 2017-04-14 11:01 | Internal Med Progress Note ---
Date of Encounter: 04/14/17 Time of Encounter: 10:10 - Assessment and plan (1) Olecranon bursitis Current Visit: Yes Status: Acute Assessment and plan: With possible underlying osteomyelitis. MRI of the elbow does show some features concerning for osteomyelitis. Orthopedics is following. Plan to take patient for debridement and irrigation along with bone biopsy. High risk for complications due to hospital osteomyelitis involving the elbow. Continue IV antibiotics. Qualifiers: Laterality: right Qualified Code(s): M70.21 - Olecranon bursitis, right elbow (2) Cellulitis of right elbow Current Visit: Yes Status: Acute Assessment and plan: Cellulitis with olecranon bursitis and possible underlying osteomyelitis. Synovial fluid culture from initial ER visit growing staph aureus. Will change antibiotics to Cefzil and per infectious disease recommendations. Continue supportive care. Plan for surgery later today. (3) DVT prophylaxis Current Visit: Yes Status: Acute Assessment and plan: With subcutaneous heparin (4) Hypertension Current Visit: Yes Status: Chronic Assessment and plan: Blood pressure is well controlled. Qualifiers: Hypertension type: essential hypertension Qualified Code(s): I10 - Essential (primary) hypertension (5) Medical non-compliance Current Visit: Yes Status: Chronic Assessment and plan: nutrition services worker consult to help with pain medications. Patient may also need long -term IV antibiotics. (6) Uncontrolled diabetes mellitus Current Visit: Yes Status: Chronic Assessment and plan: Improved control. Will continue to monitor blood sugars and adjust insulin regimen accordingly. Qualifiers: Diabetes mellitus type: type 2 Diabetes mellitus complication status: with other specified complication Diabetes mellitus skilled nursing insulin use: unspecified operations agent insulin use status Qualified Code(s): E11.69 - Type 2 diabetes mellitus with other specified complication; E11.65 - Type 2 diabetes mellitus with hyperglycemia (7) Tobacco abuse Current Visit: Yes Status: Acute - Subjective Interval history: Continues to have pain and swelling in his right elbow. No fever or chills reported. Pain control with pain medications that he is receiving. No focal weakness or numbness in his upper extremities. - Constitutional Vitals: Temp Pulse Resp BP Pulse Ox 98.4 F 73 16 104/73 97 04/14/17 06:41 04/14/17 06:41 04/14/17 06:41 04/14/17 06:41 04/14/17 06:41 General appearance: Present: A&O X 3, no acute distress, answers questions appropriately - Respiratory Respiratory exam: Present: CTAB. Absent: accessory muscle use, rales, rhonchi, wheezes - Cardiovascular Cardiovascular exam: Present: RRR, +S1, +S2. Absent: diastolic murmur, gallop, rubs, systolic murmur - GI/Abdominal GI/Abdominal exam: Present: normal bowel sounds, soft, no peritoneal signs. Absent: distended, tenderness - Extremities Exam Extremities exam: Present: tenderness (Tenderness, erythema and swelling involving the right elbow over the olecranon process.), warm, radial pulses palpable and symmetrical. Absent: calf tenderness, cyanotic, pedal edema - Neurological Exam Neurological exam: Present: alert, oriented X3, no focal deficits, strengths equal and symetr throughout. Absent: facial droop, speech deficit Internal Medicine: Result - Labs CBC & Chem 7: 04/14/17 05:44 04/14/17 06:50 Labs: Short CBC 04/14/17 Range/Units 05:44 WBC 7.6 (4.3-11.1) K/mcL Hgb 13.7 D (12.9-16.9) g/dL Hct 41.0 (37.5-50.1) % Plt Count 373 (140-400) K/mcL Neutrophils # 5.2 (1.6-8.9) K/mcL BMP 04/14/17 06:50 Sodium 136 Potassium 5.4 H D Chloride 103 Carbon Dioxide 23 BUN 13 Creatinine 0.84 Glucose 169 H Calcium 8.8 - Impressions Impressions Elbow MRI 04/13/17 17:23 IMPRESSION: Triceps tendon appears thickened and edematous with interstitial tearing more prominent medially where there is high-grade partial-thickness tear and small avulsion fracture medially from the olecranon. Tiny bony fragment is displaced proximally about 5 mm. Prominent edema throughout the visualized triceps muscle as well as edema throughout the soft tissues and subcutaneous fat, especially posteriorly were there is skin thickening. Moderate joint effusion. Constellation of findings likely related to tendinosis, partial-thickness tear and small cortical avulsion and muscle strain. Marrow edema and cortical irregularity of the olecranon may represent contusion and injury from small avulsion fracture. Superimposed cellulitis, myositis, and bony infection cannot be entirely excluded. Consider joint aspiration. Tendinosis at the origin of the common flexor and extensor tendons, worse involving the common extensor tendon were there is moderate grade partial-thickness interstitial tearing. [id number] grade sprains of the LCL and MCL at the humeral attachment. Ulnar nerve is mildly enlarged and edematous as it crosses adjacent to the medial epicondyle. No subluxation of the nerve or loss of fat plane. D/ / Lara Mccauley MD / Lara Mccauley MD Interpreting Provider: Lara Mccauley MD Consult Discharge Plan - Plan Referrals: Unassigned,Provider [Primary Care Provider] -
[2017-04-14] MEDS ORDERED: Bupivacaine/EPI 1:200k 0.5%PF 30 ML VIAL ONE (13:29)
[2017-04-14] MEDS ORDERED: Albuterol 2.5 MG/3 ML NEBULIZER IH ONE (13:33)
[2017-04-14] MEDS ORDERED: Albuterol 2.5 MG/3 ML NEBULIZER ONE (13:33)
--- NOTE | 2017-04-14 13:46 | Anesthesia Evaluation PreOp ---
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 Any Significant HX Other Medical History: Diabetes Type II Anesthesia History: Past Anesthesia (none , no fam hx of anes complications) Alcohol Use: none Drug use: none Medications and Allergies No Known Home Drugs 04/13/17 [History] 3 Allergy/AdvReac Type Severity Reaction Status Date / Time No Known Allergies Allergy Verified 04/03/17 19:23 - Meds/Allergy Pre-op Review Medications Reviewed: Yes Allergies Reviewed: Yes Beta Blockers on Current Med List: No Anesthesia Results - Labs 04/14/17 05:44 04/14/17 06:50 - Imaging EKG: pending Anesthesia Exam Vital Signs/O2 Sat, Most Current Temp Pulse Resp BP Pulse Ox 98.5 F 78 16 107/68 96 04/14/17 09:53 04/14/17 09:53 04/14/17 09:53 04/14/17 09:53 04/14/17 09:53 Height: 1.68 Weight: 86kg NPO (# of Hours): >8 - HEENT Pupil (Motor): Pupils equal, EOMI Mallampati: II Teeth: Edentulous Oral Opening: Greater than 3 - ANTIQUE REPAIRER LOC: Oriented ANTIQUE REPAIRER Motor: Normal RUE, Normal LUE, Normal RLE, Normal LLE, Normal Face ANTIQUE REPAIRER Sensory: Normal: RUE, LUE, RLE, LLE, Face - Cardiac Rhythm: Regular - Pulmonary Breath Sounds: bilateral Clear Respiratory Effort: Symmetrical Anesthesia Assess/Plan ASA Score: 3 (HTN, smoker, DM) Modified Yesica Scale for Level of Consciousness: Cooperative, oriented, and tranquil Anesthetic Plan: General (r/b/a discussed, questions answered, consent obtained) Monitoring Plan: Standard Monitors Recovery Plan: PACU
[2017-04-14] MEDS ORDERED: *HR* HYDROmorphone 2 MG/ML SYRINGE ONE (14:17)
[2017-04-14] MEDS ORDERED: Dexamethasone 4 MG/ML VIAL ONE (14:17)
[2017-04-14] MEDS ORDERED: Ondansetron 4 MG/2 ML VIAL ONE (14:17)
[2017-04-14] MEDS ORDERED: *HR* Rocuronium Bromide 50 MG/5 ML VIAL ONE (14:18)
[2017-04-14] MEDS ORDERED: Neostigmine Methylsulfate 3 MG/3 ML SYRINGE ONE (14:26)
[2017-04-14] MEDS ORDERED: Ondansetron 4 MG/2 ML VIAL IVP ONE (14:32)
[2017-04-14] MEDS ORDERED: *HR* Promethazine 25 MG/ML VIAL IVP PRN (14:32)
[2017-04-14] MEDS ORDERED: *HR* HYDROmorphone (PF) 1 MG/ML SYRINGE IVP PRN (14:32)
[2017-04-14] MEDS ORDERED: *HR* Meperidine 25 MG/ML SYRINGE IVP PRN (14:32)
[2017-04-14] MEDS ORDERED: Ringers Solution, Lactated 1,000 ML IVC SCH (14:45)
--- NOTE | 2017-04-14 15:16 | Orthopedic Operative Note ---
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 anesthesia PREOPERATIVE ANTIBIOTICS: Zosyn and vancomycin from the floor ESTIMATED BLOOD LOSS: 2 milliliters TOURNIQUET TIME: 33 minutes at 250 mmHg SPECIMENS: Right olecranon bursa and right olecranon bone both for biopsy and culture IMPLANTS: None LOCAL INJECTION: 0.5% bupivacaine with 1:200,000 epinephrine; 10 mL and total PREOPERATIVE NOTE AND INDICATIONS: Paxton is a 56-year-old male with right olecranon bursitis with concern for osteomyelitis of the olecranon. In order to treat the infection and the recommendation was for the above procedure to debride the bone. The surgical plan was discussed with the the patient. The risks, benefits, alternatives, and potential complications of this procedure were discussed with the patient including injury to veins, arteries, nerves, tendons, ligaments, and bone. Also discussed were the risks of infection, bleeding, pain, blood clots, the possible need for a blood transfusion, the possible need for further procedures, heart attack, stroke, and . Additional risks include the risk of persistent infection as well as skin healing issues. All of this was explained in simple terms, and the patient verbalized understanding and wished to proceed. Consent was given to proceed with surgery. PROCEDURE: The patient was seen in the preoperative holding area where the identify and the consent were confirmed. The right elbow was marked. Final questions were answered. The patient was brought back to the operating room and placed supine on the operating room table. A huddle was performed with the patient and all vital surgical team members confirming patient identity, the correct procedure, and the correct operative site. General anesthesia was administered. The patient was placed in the left lateral decubitus position. The right upper extremity was prepped and draped in the usual sterile fashion. A surgical time out was performed immediately preceding the incision with all personnel in the operating room to confirm patient identity, the correct operative site and extremity, correct radiographic studies, availability of appropriate surgical equipment, and agreement on the planned procedure. The limb was exsanguinated and the tourniquet was inflated. A longitudinal incision was made just radial to the olecranon and dissection proceeded through the skin and the subcutaneous tissue and the bursal tissue was thick and edematous. This was trimmed and debrided and sent for both culture and biopsy. There is no gross purulence encountered. The triceps was identified and traced down to the olecranon where there was about 5 mm of avulsion off the olecranon. The triceps was attached both radial and ulnar to this. Through the area of the avulsion there was a large sequestrum in the olecranon with soft bone that was sharply debrided with a curet and sent for both biopsy and culture. The bone was debrided down to healthy hard cancellus bone. The wound was irrigated with 3 L of saline and a 7-[place] BRENDAN drain was placed and the wound was closed with interrupted nylon stitches. The drain was tunneled distally out through the skin. A sterile dressing and posterior long-arm splint was applied. The instrument, sponge, and needle counts were correct after wound closure. POST OPERATIVE PLAN: Weight Bearing: Nonweightbearing to the right upper extremity. DVT Prophylaxis: Ambulation Activity: Avoid aggressive activities with right upper extremity. Wound Care: Daily dressing changes on postoperative day 2. Perioperative antibiotic prophylaxis: We will need likely 6 weeks of IV antibiotics per infectious disease team. Social work for discharge planning Follow Up: 10 days after surgery
[2017-04-14] MEDS: ceFAZolin 2,000 MG in D5% in Water 100 ML IVPB SCH ×2 (17:33→23:58)
[2017-04-14] MEDS: Ringers Solution, Lactated 1,000 ML IVC SCH (17:34)
--- NOTE | 2017-04-14 18:02 | Anesthesia Evaluation Post Op ---
Date of Encounter: 04/14/17 Time of Encounter: 18:01 - Vital Signs Vital Signs: Vital Signs/O2 Sat, Most Current Temp Pulse Resp BP Pulse Ox 96.2 F L 78 15 92/67 94 04/14/17 17:40 04/14/17 17:40 04/14/17 17:40 04/14/17 17:40 04/14/17 17:40 - Lungs Lungs: Clear Ascult./Percussion - Airway Airway: Non-obstructed - Cardiovascular Regular Rate - Mental Status Mental Status: Alert & Oriented, Answers Appropriately - Pain Pain Scale: 0 Pain Scale used: Numeric (1 - 10) - Hydration Hydration: NPO Notes: 04/14/17 18:02 I have assessed this patient and find they meet discharge criteria. - Discharge PostOp Status: Transfer Patient to floor
[2017-04-15] MEDS: *HR* Heparin 5,000 UNIT/ML VIAL SQ SCH (04:41)
[2017-04-15] MEDS: Ringers Solution, Lactated 1,000 ML IVC SCH (04:41)
[2017-04-15] MEDS: ceFAZolin 2,000 MG in D5% in Water 100 ML IVPB SCH ×3 (08:04→23:44)
[2017-04-15] MEDS: Acetaminophen 325 MG TABLET PO PRN ×3 (08:04→23:44)
[2017-04-15] MEDS: Insulin LISPRO 300 UNITS/3 ML VIAL SQ SCH ×4 (08:05→21:53)
[2017-04-15] MEDS: Insulin DETEMIR 100 UNIT/ML X5UNITS SQ SCH ×2 (08:53→21:51)
--- NOTE | 2017-04-15 09:57 | Orthopedics Progress Note ---
Date of Encounter: 04/15/17 Time of Encounter: 09:54 - Assessment and Plan (1) Olecranon bursitis Current Visit: Yes Status: Acute Qualifiers: Laterality: right Qualified Code(s): M70.21 - Olecranon bursitis, right elbow Subjective Interval history: S: Pain to the right posterior elbow is much improved from yesterday, and is very well-controlled. No new complaints. O: Afebrile and the vitals are stable Right posterior long-arm splint in place and not taken down. The patient can actively flex and extend all digits, extend the thumb, cross the index and long fingers, make an okay sign, and oppose the thumb. The fingertips are all grossly sensate and well-perfused, and the radial artery pulse is 2+. 20 mL output from the drain since surgery. 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 P: IV antibiotics per the infectious disease team; currently on Ancef given previous bursal cultures. I anticipate 6 weeks of IV antibiotics through a PICC. Dressing change tomorrow to evaluate the wound. We will maintain the drain for another 24 hours and likely pull tomorrow. Objective Vital signs: Vital Signs Temp Pulse Resp BP Pulse Ox 04/15/17 06:53 98.1 F 79 16 108/67 96 04/15/17 03:54 97.7 F 71 18 104/71 98 04/14/17 23:57 97.9 F 75 18 103/73 98 04/14/17 20:29 97.8 F 74 16 102/71 95 04/14/17 20:23 97.5 F L 74 16 105/71 93 04/14/17 18:08 96.4 F L 76 15 91/60 91 04/14/17 17:40 96.2 F L 78 15 92/67 94 04/14/17 16:53 97.5 F L 69 16 88/68 99 04/14/17 16:42 80 16 92/61 97 04/14/17 16:36 97.7 F 75 16 80/64 98 04/14/17 16:26 74 18 80/57 97 04/14/17 16:16 63 16 76/56 94 04/14/17 16:06 97.6 F 60 16 84/68 94 04/14/17 15:56 70 16 79/58 96 04/14/17 15:46 81 18 80/57 96 04/14/17 15:36 97.7 F 84 18 95/69 95 04/14/17 15:26 77 16 105/77 97 04/14/17 15:16 84 16 116/84 96 04/14/17 15:06 98.0 F 100 14 120/85 97 Intake and Output 04/14/17 04/15/17 04/15/17 23:59 07:59 15:59 Intake Total 100 / 100 1100 / 1100 100 / 100 Output Total 265 / 265 Balance -165 / -165 1080 / 1080 100 / 100 Intake: IV Fluids 100 / 100 1100 / 1100 100 / 100 Lactated Ringers 1,000 ML 1000 / 1000 @ 100 mls/hr IVC .Q10H [facility] Rx#:[id number] Ancef 2,000 MG In 100 / 100 100 / 100 100 / 100 Dextrose 5% 100 ML @ 200 mls/hr IVPB Q8HR [facility] Rx#: [id number] Output: Urine 250 / 250 Wound Drainage Right Elbow Other: # Voids 2 1 Blood Glucose* 343 193 - Labs CBC & BMP: 04/14/17 05:44 04/14/17 06:50 Labs: Abnormal lab results MPV 9.2 fL (9.4-12.4) L 04/14/17 05:44 ESR >= 130 mm/hr (0-10) H 04/13/17 06:27 Potassium 5.4 mEq/L (3.5-4.5) H D 04/14/17 06:50 Glucose 169 mg/dL (70-99) H 04/14/17 06:50 POC Glucose 343 (58-89) H 04/14/17 21:08 Hemoglobin A1c 12.1 % (-5.6) H 04/14/17 05:44 Magnesium 1.4 mg/dL (1.6-2.6) L 04/14/17 06:50 C-Reactive Protein 79 mg/L (Less than 5) H 04/13/17 06:27 - VTE Documentation of Mechanical Device: Intermittent pneumatic compression device Consult Discharge Plan - Plan Referrals: Unassigned,Provider [Primary Care Provider] -
--- NOTE | 2017-04-15 11:35 | Internal Med Progress Note ---
Date of Encounter: 04/15/17 Time of Encounter: 08:20 - Assessment and plan (1) Olecranon bursitis Current Visit: Yes Status: Acute Assessment and plan: Status post debridement of the right olecranon bursa and olecranon with culture and biopsy. Continue IV antibiotics. We will follow infectious disease recommendations. Cultures are currently pending. Patient is clinically feeling better. Moderate risk for complications. Qualifiers: Laterality: right Qualified Code(s): M70.21 - Olecranon bursitis, right elbow (2) Cellulitis of right elbow Current Visit: Yes Status: Acute (3) DVT prophylaxis Current Visit: Yes Status: Acute (4) Hypertension Current Visit: Yes Status: Chronic Assessment and plan: Blood pressure remains well controlled Qualifiers: Hypertension type: essential hypertension Qualified Code(s): I10 - Essential (primary) hypertension (5) Medical non-compliance Current Visit: Yes Status: Chronic (6) Uncontrolled diabetes mellitus Current Visit: Yes Status: Chronic Assessment and plan: Will start long-acting insulin to control blood sugars better. Continue to monitor blood sugars closely. Qualifiers: Diabetes mellitus type: type 2 Diabetes mellitus complication status: with other specified complication Diabetes mellitus group home insulin use: unspecified ocean transportation intermediary insulin use status Qualified Code(s): E11.69 - Type 2 diabetes mellitus with other specified complication; E11.65 - Type 2 diabetes mellitus with hyperglycemia (7) Tobacco abuse Current Visit: Yes Status: Acute - Constitutional Vitals: Temp Pulse Resp BP Pulse Ox 98.1 F 79 16 108/67 96 04/15/17 06:53 04/15/17 06:53 04/15/17 06:53 04/15/17 06:53 04/15/17 06:53 General appearance: Present: A&O X 3, no acute distress, answers questions appropriately - Neck Neck exam general surgery: Present: supple, trachea midline. Absent: lymphadenopathy - Respiratory Respiratory exam: Present: CTAB. Absent: accessory muscle use, rales, rhonchi, wheezes - Cardiovascular Cardiovascular exam: Present: RRR, +S1, +S2. Absent: diastolic murmur, gallop, rubs, systolic murmur - GI/Abdominal GI/Abdominal exam: Present: normal bowel sounds, soft, no peritoneal signs. Absent: distended, tenderness - Extremities Exam Extremities exam: Present: warm, radial pulses palpable and symmetrical. Absent : calf tenderness, cyanotic, pedal edema Additional comments: right upper extremity bandaged with drain in place Internal Medicine: Result - Labs CBC & Chem 7: 04/14/17 05:44 04/14/17 06:50 - VTE Documentation of Mechanical Device: Intermittent pneumatic compression device Consult Discharge Plan - Plan Referrals: Unassigned,Provider [Primary Care Provider] -
[2017-04-15] MEDS: Ibuprofen 600 MG TABLET PO PRN (12:37)
[2017-04-16 04:53] LABS: Basophils % 0.6 %; Eosinophils # 0.1 K/mcL (0.0-0.6); Eosinophils % 1.7 %; Hematocrit 35.3 % (37.5-50.1); Hemoglobin 11.8 g/dL (12.9-16.9); Immature Granulocytes % 0.2 % (0-4); Lymphocytes # 1.6 K/mcL (0.6-4.6); Lymphocytes % 24.6 %; Mean Corpuscular HGB Conc 33.4 g/dL (31.6-35.5); Mean Corpuscular Hemoglobin 31.4 pg (28.0-33.3); Mean Corpuscular Volume 93.9 fL (83.0-100.0); Mean Platelet Volume 8.9 fL (9.4-12.4); Monocytes # 0.6 K/mcL (0.0-1.3); Monocytes % 8.3 %; Neutrophils # 4.3 K/mcL (1.6-8.9); Platelet Count 376 K/mcL (140-400); Red Blood Count 3.76 M/mcL (4.19-5.50); Red Cell Distribution Width 12.4 % (11.5-14.5); Segmented Neutrophils % 64.6 %
[2017-04-16 05:05] LABS: BUN/Creatinine Ratio 16 (6-26); Blood Urea Nitrogen 14 mg/dL (8-26); Calcium 8.8 mg/dL (8.6-10.8); Carbon Dioxide 29 mEq/L (19-29); Chloride 103 mEq/L (98-109); Glucose 111 mg/dL (70-99); Osmolality,Calculated 289 (280-300); Sodium 139 mEq/L (136-145); eGFR For African Americans > 60 (> 60); eGFR For Non-African Americans > 60 (> 60)
[2017-04-16 05:07] LABS: Potassium 3.7 mEq/L (3.5-4.5)
[2017-04-16] MEDS: Acetaminophen 325 MG TABLET PO PRN ×3 (07:04→23:58)
--- NOTE | 2017-04-16 07:57 | Orthopedics Progress Note ---
Date of Encounter: 04/16/17 Time of Encounter: 07:54 - Assessment and Plan (1) Olecranon bursitis Current Visit: Yes Status: Acute Qualifiers: Laterality: right Qualified Code(s): M70.21 - Olecranon bursitis, right elbow Subjective Interval history: S: Pain well-controlled to the right elbow. No new complaints.. O: Afebrile and the vitals are stable Dressing taken down and the incision is clean, dry, and intact. No drainage. 10 mL output from the drain in the last 24 hours. The drain is pulled. Painless range of motion of the right elbow from 0-90 degrees. The patient can actively flex and extend all digits, extend the thumb, cross the index and long fingers, make an okay sign, and oppose the thumb. The fingertips are all grossly sensate and well-perfused, and the radial artery pulse is 2+. OR cultures growing Staphylococcus aureus. 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 P: IV antibiotics per the infectious disease team; currently on Ancef given previous bursal cultures. I anticipate 6 weeks of IV antibiotics through a PICC. Daily dressing changes. Splint to the posterior right elbow to protect the wound. Orthopedically stable, follow up with me in 1 week for a wound evaluation. May discharge once IV antibiotics set up through the infectious disease team. Objective Vital signs: Vital Signs Temp Pulse Resp BP Pulse Ox 04/16/17 06:38 97.5 F L 69 18 121/80 94 04/15/17 23:44 97.7 F 90 18 125/80 98 04/15/17 20:00 97.9 F 88 18 128/78 98 04/15/17 16:00 98.1 F 86 18 128/83 98 04/15/17 09:59 98.7 F 84 16 104/76 95 Intake and Output 04/15/17 04/15/17 04/16/17 15:59 23:59 07:59 Intake Total 700 / 700 300 / 300 Output Total 465 / 465 0 / 0 10 / 10 Balance 235 / 235 300 / 300 -10 / -10 Intake: IV Fluids 100 / 100 100 / 100 Ancef 2,000 MG In 100 / 100 100 / 100 Dextrose 5% 100 ML @ 200 mls/hr IVPB Q8HR [facility] Rx#: [id number] Oral 600 / 600 200 / 200 Output: Urine 450 / 450 Wound Drainage 0 / 0 Right Elbow 0 / 0 Other: # Voids 1 # Bowel Movements 1 Blood Glucose* 236 208 102 - Labs CBC & BMP: 04/16/17 04:21 04/16/17 04:21 Labs: Abnormal lab results RBC 3.76 M/mcL (4.19-5.50) L 04/16/17 04:21 Hgb 11.8 g/dL (12.9-16.9) L D 04/16/17 04:21 Hct 35.3 % (37.5-50.1) L 04/16/17 04:21 MPV 8.9 fL (9.4-12.4) L 04/16/17 04:21 ESR >= 130 mm/hr (0-10) H 04/13/17 06:27 Glucose 111 mg/dL (70-99) H 04/16/17 04:21 POC Glucose 208 (58-89) H 04/15/17 20:23 Hemoglobin A1c 12.1 % (-5.6) H 04/14/17 05:44 Magnesium 1.4 mg/dL (1.6-2.6) L 04/14/17 06:50 C-Reactive Protein 79 mg/L (Less than 5) H 04/13/17 06:27 - VTE Documentation of Mechanical Device: Intermittent pneumatic compression device Consult Discharge Plan - Plan Referrals: Unassigned,Provider [Primary Care Provider] -
[2017-04-16] MEDS: Insulin DETEMIR 100 UNIT/ML X5UNITS SQ SCH ×2 (08:03→21:09)
[2017-04-16] MEDS: Insulin LISPRO 300 UNITS/3 ML VIAL SQ SCH ×4 (08:03→21:09)
[2017-04-16] MEDS: ceFAZolin 2,000 MG in D5% in Water 100 ML IVPB SCH ×3 (08:03→23:52)
[2017-04-16] MEDS: Ibuprofen 600 MG TABLET PO PRN ×2 (09:58→17:03)
[2017-04-16] MEDS ORDERED: Lidocaine -MPF 1% 2 ML VIAL INFILT ONE (11:45)
--- NOTE | 2017-04-16 13:13 | Infectious Disease Progress No ---
Date of Encounter: 04/16/17 Time of Encounter: 13:11 - Assessment and Plan (1) Septic joint of right elbow Current Visit: Yes Status: Acute Location: Right elbow. Etiology unclear. The patient denies any known traumatic injury prior to the onset of symptoms. Causative organism MSSA. Failed outpatient oral antibiotic therapy (five days of PO Bactrim). ESR >130. CRP 79. The patient had no SIRS criteria. X-ray of the right elbow shows a suspected avulsion injury of an olecranon enthesophyte at the insertion of the right triceps brachii tendon with new mild superior displacement, persistent soft tissue swelling posterior to the right olecranon process potentially due to hematoma, cellulitis, or olecranon bursitis , and persistent moderate right elbow joint effusion with no visualized intra- articular fracture. A tiny bony fragment adjacent to the right ulnar coronary process appears related to remote injury. Ortho consulted. Status post right elbow I & D 04/14/[address] De La Torre. Operative note reviewed. Evidence of OM noted intra-op. Continue cefazolin 2 grams IV Q8H. Continue wound care and activity restrictions as outlined by the primary team. Duration of treatment depends on the clinical picture, but likely 6 weeks of IV antibiotics. Monitor renal function and dose-adjust antibiotics. manager services consulted for discharge planning and is attempting to get the patient placed at [facility]. Qualifiers: Septic arthritis organism: staphylococcal Qualified Code(s): M00.021 - Staphylococcal arthritis, right elbow (2) Osteomyelitis Current Visit: Yes Status: Acute Location: Right olecranon. Causative organism MSSA. Likely secondary to right elbow septic arthritis. Status post I & D. Continue antibiotics as above. Qualifiers: Osteomyelitis type: acute hematogenous Osteomyelitis location: other site Qualified Code(s): M86.08 - Acute hematogenous osteomyelitis, other sites (3) Cellulitis of right elbow Current Visit: Yes Status: Acute Causative organism likely MSSA. Failed outpatient oral antibiotic therapy. Etiology not entirely clear since the patient denies trauma/injury, but there is a superficial abrasion noted to the posterior elbow. Antibiotic recommendations as above. (4) Hypertension Current Visit: Yes Status: Chronic Qualifiers: Hypertension type: essential hypertension Qualified Code(s): I10 - Essential (primary) hypertension (5) Tobacco abuse Current Visit: Yes Status: Acute (6) Medical non-compliance Current Visit: Yes Status: Chronic (7) Uncontrolled diabetes mellitus Current Visit: Yes Status: Chronic HgbA1C 12.1%. Recommend aggressive glucose monitoring and control to promote wound healing and prevent re-infection. Further management per the primary team. 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 No acute events noted overnight. Weekend notes reviewed and reveals that the patient was taken to the operating room for incision and debridement of the right elbow. The patient states that overall he feels well. He reports minimal pain at the surgical site at this time. He denies any fevers, chills, or rigors. He denies any chest pain, shortness of breath, or cough. He denies any nausea, vomiting, diarrhea, or constipation. He denies any abdominal pain and states that appetite is okay. He denies any urinary complaints. He denies any oral thrush or new skin lesions. Infect Dis PN-Objective Data - Labs CBC & Chem 7: 04/16/17 04:21 04/16/17 04:21 Labs: Laboratory Results - last 24 hr 04/15/17 04/15/17 04/15/17 11:54 16:51 20:23 WBC RBC Hgb Hct MCV MCH MCHC RDW Plt Count MPV Immature Gran % Seg Neutrophils % Lymphocytes % Monocytes % Eosinophils % Basophils % Neutrophils # Lymphocytes # Monocytes # Eosinophils # Basophils # Sodium Potassium Chloride Carbon Dioxide BUN Creatinine Est GFR ( Amer) Est GFR (Non-Af Amer) BUN/Creatinine Ratio Glucose POC Glucose 236 H 209 H 208 H Calculated Osmolality Calcium 04/16/17 04/16/17 04/16/17 04:21 04:21 07:16 WBC 6.6 RBC 3.76 L Hgb 11.8 L D Hct 35.3 L MCV 93.9 MCH 31.4 MCHC 33.4 RDW 12.4 Plt Count 376 MPV 8.9 L Immature Gran % 0.2 Seg Neutrophils % 64.6 Lymphocytes % 24.6 Monocytes % 8.3 Eosinophils % 1.7 Basophils % 0.6 Neutrophils # 4.3 Lymphocytes # 1.6 Monocytes # 0.6 Eosinophils # 0.1 Basophils # 0.0 Sodium 139 Potassium 3.7 D Chloride 103 Carbon Dioxide 29 BUN 14 Creatinine 0.87 Est GFR ( Amer) > 60 Est GFR (Non-Af Amer) > 60 BUN/Creatinine Ratio 16 Glucose 111 H POC Glucose 102 H Calculated Osmolality 289 Calcium 8.8 Cultures: Cultures 04/14/17 14:35 Surgical Biopsy Culture - Preliminary Right Elbow Staphylococcus aureus 04/14/17 14:25 Surgical Biopsy Culture - Preliminary Right Elbow Staphylococcus aureus Exam - Constitutional Vitals: Temp Pulse Resp BP Pulse Ox 98.0 F 74 18 155/79 93 04/16/17 11:26 04/16/17 11:26 04/16/17 11:26 04/16/17 11:26 04/16/17 11:26 General appearance: average body habitus, cooperative, no acute distress - Head Head exam: Present: atraumatic, normal inspection, normocephalic - Eye Eye exam: Present: EOMI, normal appearance, PERRL Pupils: Present: normal accommodation - ENT ENT exam: Present: mucous membranes moist - Neck Neck exam: Present: normal inspection - Respiratory Respiratory exam: Present: CTAB. Absent: rales, respiratory distress, rhonchi, wheezes - Cardiovascular Cardiovascular exam: Present: RRR, +S1, +S2 - GI/Abdominal GI/Abdominal exam: Present: normal bowel sounds, soft. Absent: distended, tenderness - Extremities Exam Extremities exam: Present: joint swelling (right elbow), tenderness (right elbow ). Absent: pedal edema Additional comments: Trace edema noted to the right hand. Dressing noted to the right elbow C/D/I. - Neurological Exam Neurological exam: Present: alert, oriented X3, no focal deficits - Psychiatric Psychiatric exam: Present: normal affect, normal mood - Skin Skin exam: Present: dry, intact, normal color, warm - VTE Documentation of Mechanical Device: Intermittent pneumatic compression device Consult Discharge Plan - Plan Referrals: Unassigned,Provider [Primary Care Provider] -
--- NOTE | 2017-04-16 15:20 | Internal Med Progress Note ---
Date of Encounter: 04/16/17 Time of Encounter: 08:25 - Assessment and plan (1) Olecranon bursitis Current Visit: Yes Status: Acute Assessment and plan: Septic bursitis. Wound culture growing methicillin sensitive staph aureus. Continue IV antibiotics per infectious disease recommendations. Will place PICC line. Plan for 6 weeks of IV antibiotics as outpatient. detention worker working on making arrangements for this. Moderate risk for complications. Qualifiers: Laterality: right Qualified Code(s): M70.21 - Olecranon bursitis, right elbow (2) Cellulitis of right elbow Current Visit: Yes Status: Acute Assessment and plan: Improving. Related to septic olecranon bursitis. (3) DVT prophylaxis Current Visit: Yes Status: Acute Assessment and plan: Early ambulation (4) Hypertension Current Visit: Yes Status: Chronic Assessment and plan: Well-controlled Qualifiers: Hypertension type: essential hypertension Qualified Code(s): I10 - Essential (primary) hypertension (5) Medical non-compliance Current Visit: Yes Status: Chronic (6) Uncontrolled diabetes mellitus Current Visit: Yes Status: Chronic Assessment and plan: Improved blood sugars. Continue current insulin regimen. 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 Pain is better controlled. The drain in his right upper extremity was removed earlier by orthopedics today. no fever or chills reported. No nausea or vomiting. - Constitutional Vitals: Temp Pulse Resp BP Pulse Ox 98.0 F 74 18 155/79 93 04/16/17 11:26 04/16/17 11:26 04/16/17 11:26 04/16/17 11:26 04/16/17 11:26 General appearance: Present: A&O X 3, no acute distress, answers questions appropriately - Neck Neck exam general surgery: Present: supple, trachea midline. Absent: lymphadenopathy - Respiratory Respiratory exam: Present: CTAB. Absent: accessory muscle use, rales, rhonchi, wheezes - Cardiovascular Cardiovascular exam: Present: RRR, +S1, +S2. Absent: diastolic murmur, gallop, rubs, systolic murmur - GI/Abdominal GI/Abdominal exam: Present: normal bowel sounds, soft, no peritoneal signs. Absent: distended, tenderness - Extremities Exam Extremities exam: Present: warm, radial pulses palpable and symmetrical. Absent : calf tenderness, cyanotic, pedal edema Additional comments: Right upper extremity bandaged. Less tender. Good range of motion at wrist and elbow. - Neurological Exam Neurological exam: Present: oriented X3, no focal deficits. Absent: facial droop, speech deficit - Skin Skin exam: Present: dry, intact Internal Medicine: Result - Labs CBC & Chem 7: 04/16/17 04:21 04/16/17 04:21 Labs: Short CBC 04/16/17 Range/Units 04:21 WBC 6.6 (4.3-11.1) K/mcL Hgb 11.8 L D (12.9-16.9) g/dL Hct 35.3 L (37.5-50.1) % Plt Count 376 (140-400) K/mcL Neutrophils # 4.3 (1.6-8.9) K/mcL BMP 04/16/17 04:21 Sodium 139 Potassium 3.7 D Chloride 103 Carbon Dioxide 29 BUN 14 Creatinine 0.87 Glucose 111 H Calcium 8.8 - VTE Documentation of Mechanical Device: Intermittent pneumatic compression device Consult Discharge Plan - Plan Referrals: Unassigned,Provider [Primary Care Provider] -
--- NOTE | 2017-04-16 17:30 | Electrocardiograph Report ---
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
[2017-04-17] MEDS: Acetaminophen 325 MG TABLET PO PRN ×2 (06:51→13:58)
[2017-04-17] MEDS: Insulin DETEMIR 100 UNIT/ML X5UNITS SQ SCH ×2 (08:06→21:24)
[2017-04-17] MEDS: Insulin LISPRO 300 UNITS/3 ML VIAL SQ SCH ×4 (08:06→21:23)
[2017-04-17] MEDS: ceFAZolin 2,000 MG in D5% in Water 100 ML IVPB SCH ×2 (08:06→17:22)
--- NOTE | 2017-04-17 08:41 | Orthopedics Progress Note ---
Date of Encounter: 04/17/17 Time of Encounter: 08:39 - Assessment and Plan (1) Olecranon bursitis Current Visit: Yes Status: Acute Qualifiers: Laterality: right Qualified Code(s): M70.21 - Olecranon bursitis, right elbow Subjective Interval history: S: Pain well-controlled to the right elbow. No new complaints. O: Afebrile and the vitals are stable Dressing taken down and the incision is clean, dry, and intact. Minimal serosanguineous drainage from the drain site. Painless range of motion of the right elbow from 0-115 degrees. The patient can actively flex and extend all digits, extend the thumb, cross the index and long fingers, make an okay sign, and oppose the thumb. The fingertips are all grossly sensate and well-perfused, and the radial artery pulse is 2+. OR cultures growing MSSA. 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 P: IV antibiotics per the infectious disease team; currently on Ancef. I anticipate 6 weeks of IV antibiotics through a PICC. Daily dressing changes. Splint to the posterior right elbow to protect the wound. Orthopedically stable, follow up with me in 1 week for a wound evaluation. May discharge once IV antibiotics set up through the infectious disease team. Objective Vital signs: Vital Signs Temp Pulse Resp BP Pulse Ox 04/17/17 06:43 97.8 F 79 18 112/81 97 04/17/17 04:49 98.1 F 65 16 157/78 98 04/16/17 23:01 97.9 F 63 17 122/79 98 04/16/17 18:45 98.1 F 77 18 146/84 97 04/16/17 15:00 97.6 F 70 16 110/66 97 04/16/17 11:26 98.0 F 74 18 155/79 93 Intake and Output 04/16/17 04/17/17 04/17/17 23:59 07:59 15:59 Intake Total 250 / 250 100 / 100 Output Total 0 / 0 Balance 250 / 250 100 / 100 Intake: IV Fluids 100 / 100 100 / 100 Ancef 2,000 MG In 100 / 100 100 / 100 Dextrose 5% 100 ML @ 200 mls/hr IVPB Q8HR KARLEY Rx#: [id number] Oral 150 / 150 Output: Urine 0 / 0 Other: Meal Dinner Percent of Meal Consumed 100% # Voids 1 Weight 86.4 kg Blood Glucose* 272 151 Patient Weight 04/17/17 23:59 Weight 86.4 kg - Labs CBC & BMP: 04/16/17 04:21 04/16/17 04:21 Labs: Abnormal lab results RBC 3.76 M/mcL (4.19-5.50) L 04/16/17 04:21 Hgb 11.8 g/dL (12.9-16.9) L D 04/16/17 04:21 Hct 35.3 % (37.5-50.1) L 04/16/17 04:21 MPV 8.9 fL (9.4-12.4) L 04/16/17 04:21 ESR >= 130 mm/hr (0-10) H 04/13/17 06:27 Glucose 111 mg/dL (70-99) H 04/16/17 04:21 POC Glucose 272 (58-89) H 04/16/17 20:54 Hemoglobin A1c 12.1 % (-5.6) H 04/14/17 05:44 Magnesium 1.4 mg/dL (1.6-2.6) L 04/14/17 06:50 C-Reactive Protein 79 mg/L (Less than 5) H 04/13/17 06:27 - VTE Documentation of Mechanical Device: Intermittent pneumatic compression device Consult Discharge Plan - Plan Referrals: Unassigned,Provider [Primary Care Provider] -
--- NOTE | 2017-04-17 13:10 | Internal Med Progress Note ---
Date of Encounter: 04/17/17 Time of Encounter: 09:30 - Assessment and plan (1) Olecranon bursitis Current Visit: Yes Status: Acute Assessment and plan: Septic bursitis with possible osteomyelitis involving the olecranon. Wound culture growing staph aureus. Blood cultures have been negative. Patient will require 6 weeks of IV antibiotics. 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 From a medical standpoint, patient discharged whenever IV antibiotics have been arranged. Qualifiers: Laterality: right Qualified Code(s): M70.21 - Olecranon bursitis, right elbow (2) Cellulitis of right elbow Current Visit: Yes Status: Acute Assessment and plan: Improving clinically. (3) DVT prophylaxis Current Visit: Yes Status: Acute (4) Hypertension Current Visit: Yes Status: Chronic Assessment and plan: Blood pressure is slightly elevated this morning. Will place patient on lisinopril Qualifiers: Hypertension type: essential hypertension Qualified Code(s): I10 - Essential (primary) hypertension (5) Medical non-compliance Current Visit: Yes Status: Chronic (6) Uncontrolled diabetes mellitus Current Visit: Yes Status: Chronic Assessment and plan: Blood sugars remain elevated but improving. We will increase sliding scale coverage. Also On Levemir 10 units twice a day. 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 Pain in his right upper extremity is much better. Denies any fever or chills. No nausea or vomiting. - Constitutional Vitals: Temp Pulse Resp BP Pulse Ox 98.0 F 82 18 130/89 96 04/17/17 10:56 04/17/17 10:56 04/17/17 10:56 04/17/17 10:56 04/17/17 10:56 General appearance: Present: A&O X 3, no acute distress, answers questions appropriately - Respiratory Respiratory exam: Present: CTAB. Absent: accessory muscle use, rales, rhonchi, wheezes - Cardiovascular Cardiovascular exam: Present: RRR, +S1, +S2. Absent: diastolic murmur, gallop, rubs, systolic murmur - Extremities Exam Extremities exam: Present: warm, radial pulses palpable and symmetrical. Absent : calf tenderness, cyanotic, pedal edema Additional comments: Right upper extremity currently bandaged. Good range of motion. Internal Medicine: Result - Labs CBC & Chem 7: 04/16/17 04:21 04/16/17 04:21 - VTE Documentation of Mechanical Device: Intermittent pneumatic compression device Consult Discharge Plan - Plan Referrals: Unassigned,Provider [Primary Care Provider] -
--- NOTE | 2017-04-17 14:57 | Infectious Disease Progress No ---
Date of Encounter: 04/17/17 Time of Encounter: 14:55 - Assessment and Plan (1) Septic joint of right elbow Current Visit: Yes Status: Acute Location: Right elbow. Etiology unclear. The patient denies any known traumatic injury prior to the onset of symptoms. Causative organism MSSA. Failed outpatient oral antibiotic therapy (five days of PO Bactrim). ESR >130. CRP 79. The patient had no SIRS criteria. X-ray of the right elbow showed a suspected avulsion injury of an olecranon enthesophyte at the insertion of the right triceps brachii tendon with new mild superior displacement, persistent soft tissue swelling posterior to the right olecranon process potentially due to hematoma, cellulitis, or olecranon bursitis , and persistent moderate right elbow joint effusion with no visualized intra- articular fracture. A tiny bony fragment adjacent to the right ulnar coronary process appears related to remote injury. Ortho consulted. Status post right elbow I & D 04/14/[address] De La Torre. Operative note reviewed. Evidence of OM noted intra-op. Continue cefazolin 2 grams IV Q8H. Continue wound care and activity restrictions as outlined by the primary team. Duration of treatment depends on the clinical picture, but likely 6 weeks of IV antibiotics. Monitor renal function and dose-adjust antibiotics. program services assistant consulted for discharge planning. Midline placed 04/17/17. Qualifiers: Septic arthritis organism: staphylococcal Qualified Code(s): M00.021 - Staphylococcal arthritis, right elbow (2) Osteomyelitis Current Visit: Yes Status: Acute Location: Right olecranon. Causative organism MSSA. Likely secondary to right elbow septic arthritis. Status post I & D. Continue antibiotics as above. Qualifiers: Osteomyelitis type: acute hematogenous Osteomyelitis location: other site Qualified Code(s): M86.08 - Acute hematogenous osteomyelitis, other sites (3) Cellulitis of right elbow Current Visit: Yes Status: Acute Causative organism likely MSSA. Failed outpatient oral antibiotic therapy. Etiology not entirely clear since the patient denies trauma/injury, but there is a superficial abrasion noted to the posterior elbow. Antibiotic recommendations as above. (4) Hypertension Current Visit: Yes Status: Chronic Qualifiers: Hypertension type: essential hypertension Qualified Code(s): I10 - Essential (primary) hypertension (5) Tobacco abuse Current Visit: Yes Status: Acute (6) Medical non-compliance Current Visit: Yes Status: Chronic (7) Uncontrolled diabetes mellitus Current Visit: Yes Status: Chronic HgbA1C 12.1%. Recommend aggressive glucose monitoring and control to promote wound healing and prevent re-infection. Further management per the primary team. Qualifiers: Diabetes mellitus type: type 2 Diabetes mellitus complication status: with other specified complication Diabetes mellitus terminal block assembler insulin use: unspecified terminal block assembler insulin use status Qualified Code(s): E11.69 - Type 2 diabetes mellitus with other specified complication; E11.65 - Type 2 diabetes mellitus with hyperglycemia - Subjective Interval history: Patient seen and examined. No acute events noted overnight. The patient states that overall he feels well. He reports minimal pain at the surgical site at this time, but does complain of the cast rubbing his upper arm raw. He denies any fevers, chills, or rigors. He denies any chest pain, shortness of breath, or cough. He denies any nausea, vomiting, diarrhea, or constipation. He denies any abdominal pain and states that appetite is okay. He denies any urinary complaints. He denies any oral thrush or new skin lesions. Infect Dis PN-Objective Data - Labs CBC & Chem 7: 04/16/17 04:21 04/16/17 04:21 Labs: Laboratory Results - last 24 hr 04/16/17 04/16/17 04/16/17 11:26 16:24 20:54 POC Glucose 246 H 208 H 272 H Cultures: Cultures 04/14/17 14:25 Anaerobic Culture - Preliminary Right Elbow At this time, no anaerobic growth is present. The culture will be finalized after 5 days of incubation. 04/14/17 14:35 Anaerobic Culture - Preliminary Right Elbow At this time, no anaerobic growth is present. The culture will be finalized after 5 days of incubation. 04/14/17 14:25 Surgical Biopsy Culture - Final Right Elbow Staphylococcus aureus 04/14/17 14:35 Surgical Biopsy Culture - Final Right Elbow Staphylococcus aureus Exam - Constitutional Vitals: Temp Pulse Resp BP Pulse Ox 98.0 F 82 18 130/89 96 04/17/17 10:56 04/17/17 10:56 04/17/17 10:56 04/17/17 10:56 04/17/17 10:56 General appearance: average body habitus, cooperative, no acute distress - Head Head exam: Present: atraumatic, normal inspection, normocephalic - Eye Eye exam: Present: EOMI, normal appearance, PERRL Pupils: Present: normal accommodation - ENT ENT exam: Present: mucous membranes moist - Neck Neck exam: Present: normal inspection - Respiratory Respiratory exam: Present: CTAB. Absent: rales, respiratory distress, rhonchi, wheezes - Cardiovascular Cardiovascular exam: Present: RRR, +S1, +S2 - GI/Abdominal GI/Abdominal exam: Present: normal bowel sounds, soft. Absent: distended, tenderness - Extremities Exam Extremities exam: Absent: joint swelling, pedal edema, tenderness Additional comments: Right elbow splint and dressing intact. Right hand edema resolved. - Neurological Exam Neurological exam: Present: alert, oriented X3, no focal deficits - Psychiatric Psychiatric exam: Present: normal affect, normal mood - Skin Skin exam: Present: dry, intact, normal color, warm - VTE Documentation of Mechanical Device: Intermittent pneumatic compression device Consult Discharge Plan - Plan Referrals: Unassigned,Provider [Primary Care Provider] -
--- NOTE | 2017-04-17 16:17 | Electrocardiograph Report ---
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
[2017-04-17] MEDS: Ibuprofen 600 MG TABLET PO PRN (18:48)
[2017-04-18] MEDS: Acetaminophen 325 MG TABLET PO PRN ×3 (02:46→16:54)
[2017-04-18] MEDS: ceFAZolin 2,000 MG in D5% in Water 100 ML IVPB SCH ×3 (02:46→16:54)
[2017-04-18] MEDS: Insulin LISPRO 300 UNITS/3 ML VIAL SQ SCH ×4 (08:29→21:27)
[2017-04-18] MEDS: Insulin DETEMIR 100 UNIT/ML X5UNITS SQ SCH ×2 (08:39→21:27)
--- NOTE | 2017-04-18 12:33 | Discharge Summary ---
Date of Encounter: 04/18/17 Time of Encounter: 10:55 - Discharge Diagnosis (1) Septic joint of right elbow Priority: Primary Status: Acute Qualifiers: Septic arthritis organism: staphylococcal Qualified Code(s): M00.021 - Staphylococcal arthritis, right elbow (2) Cellulitis of right elbow Priority: Primary Status: Acute (3) Olecranon bursitis Priority: Primary Status: Acute Qualifiers: Laterality: right Qualified Code(s): M70.21 - Olecranon bursitis, right elbow (4) DVT prophylaxis Priority: Secondary Status: Acute (5) Tobacco abuse Priority: Secondary Status: Chronic (6) Hypertension Priority: Secondary Status: Chronic Qualifiers: Hypertension type: essential hypertension Qualified Code(s): I10 - Essential (primary) hypertension (7) Medical non-compliance Priority: Secondary Status: Chronic (8) Uncontrolled diabetes mellitus Priority: Secondary Status: Chronic Qualifiers: Diabetes mellitus type: type 2 Diabetes mellitus complication status: with other specified complication Diabetes mellitus fpc insulin use: unspecified 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 Qualified Code(s): E11.69 - Type 2 diabetes mellitus with other specified complication; E11.65 - Type 2 diabetes mellitus with hyperglycemia - Discharge Medications Home Medications: Atorvastatin Calcium [Lipitor] 20 mg PO DAILY 04/16/17 [History] Metformin HCl [Glucophage] 1,000 mg PO BID 04/16/17 [History] hydroCHLOROthiazide [Hydrochlorothiazide] 12.5 mg PO DAILY 04/16/17 [History] Acetaminophen [Tylenol] 650 mg PO Q6HR PRN tab 04/18/17 [Rx] Ibuprofen [Motrin] 600 mg PO TID PRN tab 04/18/17 [Rx] Insulin DETEMIR [Levemir] 10 unit SQ BID 04/18/17 [Rx] Lisinopril [Zestril] 5 mg PO DAILY tab 04/18/17 [Rx] Allergies/Adverse Reactions: 3 Allergy/AdvReac Type Severity Reaction Status Date / Time No Known Allergies Allergy Verified 04/03/17 19:23 Date of admission: 04/13/17 08:37 Primary care physician: Provider Unassigned Consults: 04/13/17 10:11 Consult to Telephone Information Clerk [CONS] Routine Reason for SW Consult: Unable to afford home medications 04/16/17 11:45 Consult to Invasive Line Access Team [CONS] Routine Reason for Consult: Picc Line Insertion Line Type: PICC Discharging clinician: Darrell Oro Anticipated date of discharge: 04/18/17 - Patient Status Disposition: Transfer SNF Condition: Fair Functional capacity at discharge: independent ambulation Overall status at discharge: patient is progressing back to baseline - Discharge Instructions Follow Up With: Unassigned,Provider [Primary Care Provider] - - Diet and Activity Activity: as per physical therapy Diet: diabetic diet, low fat, low cholesterol, low salt diet Interval History: See below Hospital course: Mr. Sierra is a 56 year old male with PMH of DM, HTN, known medication non- compliance He was admitted and managed for MSSA septic R elbow with OM and cellulitis Causative organism was MSSA Work up on admission revealed ESR >130. CRP 79, X-ray of the right elbow showed a suspected avulsion injury of an olecranon enthesophyte at the insertion of the right triceps brachii tendon with new mild superior displacement, persistent soft tissue swelling posterior to the right olecranon process potentially due to hematoma, cellulitis, or olecranon bursitis, and persistent moderate right elbow joint effusion with no visualized intra-articular fracture. A tiny bony fragment adjacent to the right ulnar coronary process appears related to remote injury. Ortho was consulted and is following, patient is s/p right elbow I & D 04/14/[address] De La Torre. Operative note reviewed. Evidence of OM noted intra-op. He has been on cefazolin IV He is clinically cleared and has a PICC line for IV antibiotics when accepted to SNF Infectious disease has recommended 6 weeks of IV antibiotics His other medical problems are chronic, he is ambulatory and clinically stable Plan of care discussed, verbalized understanding - Time Spent with Patient Total time spent providing and/or coordinating discharge services: Greater than 30 minutes - Constitutional Vitals: Temp Pulse Resp BP Pulse Ox 98.1 F 73 16 104/58 97 04/18/17 11:00 04/18/17 11:00 04/18/17 11:00 04/18/17 11:00 04/18/17 11:00 General appearance: Present: A&O X 3, no acute distress, answers questions appropriately - Head Head exam: Present: atraumatic, normocephalic - Eye Eye exam: Present: PERRL, conjuntiva pink, sclera anicteric Pupils: Present: PERRL - Neck Neck exam general surgery: Present: supple, trachea midline. Absent: lymphadenopathy - Respiratory Respiratory exam: Present: CTAB. Absent: accessory muscle use, rales, rhonchi, wheezes - Cardiovascular Cardiovascular exam: Present: RRR, +S1, +S2. Absent: diastolic murmur, gallop, rubs, systolic murmur - GI/Abdominal GI/Abdominal exam: Present: normal bowel sounds, soft, no peritoneal signs. Absent: distended, tenderness - Extremities Exam Extremities exam: Present: warm, radial pulses palpable and symmetrical. Absent : calf tenderness, cyanotic, pedal edema Additional comments: LUE wound dressing clean and dry - Neurological Exam Neurological exam: Present: alert, CN II-XII intact, oriented X3, no focal deficits. Absent: pronater drift, facial droop, speech deficit - Skin Skin exam: Present: dry, intact - VTE Documentation of Mechanical Device: Intermittent pneumatic compression device
--- NOTE | 2017-04-18 13:58 | Orthopedics Progress Note ---
Date of Encounter: 04/18/17 Time of Encounter: 13:56 - Assessment and Plan (1) Olecranon bursitis Current Visit: Yes Status: Acute Qualifiers: Laterality: right Qualified Code(s): M70.21 - Olecranon bursitis, right elbow Subjective Interval history: S: Pain well-controlled to the right elbow. No new complaints. O: Afebrile and the vitals are stable Dressing taken down and the incision is clean, dry, and intact. Minimal serosanguineous drainage from the drain site. Painless range of motion of the right elbow from 0-115 degrees. The patient can actively flex and extend all digits, extend the thumb, cross the index and long fingers, make an okay sign, and oppose the thumb. The fingertips are all grossly sensate and well-perfused, and the radial artery pulse is 2+. OR cultures growing MSSA. 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 P: IV antibiotics per the infectious disease team; currently on Ancef. I anticipate 6 weeks of IV antibiotics through a PICC. Daily dressing changes. Splint to the posterior right elbow to protect the wound. Orthopedically stable, follow up with me in 1 week for a wound evaluation. Awaiting social work for discharge planning. Objective Vital signs: Vital Signs Temp Pulse Resp BP Pulse Ox 04/18/17 11:00 98.1 F 73 16 104/58 97 04/18/17 06:56 97.9 F 68 18 98/54 95 04/18/17 03:48 97.7 F 60 19 93/57 94 04/17/17 23:07 97.9 F 61 20 114/75 94 04/17/17 19:42 97.6 F 81 18 121/83 95 04/17/17 16:30 98.8 F 67 16 120/88 96 Intake and Output 04/17/17 04/18/17 04/18/17 23:59 07:59 15:59 Intake Total 790 / 790 200 / 200 Balance 790 / 790 200 / 200 Intake: IV Fluids 100 / 100 200 / 200 Ancef 2,000 MG In 100 / 100 200 / 200 Dextrose 5% 100 ML @ 200 mls/hr IVPB Q8HR [facility] Rx#: [id number] Oral 690 / 690 Other: Meal Dinner Percent of Meal Consumed 100% # Voids 1 Weight 86.2 kg Blood Glucose* 266 112 337 - Labs CBC & BMP: 04/16/17 04:21 04/16/17 04:21 Labs: Abnormal lab results RBC 3.76 M/mcL (4.19-5.50) L 04/16/17 04:21 Hgb 11.8 g/dL (12.9-16.9) L D 04/16/17 04:21 Hct 35.3 % (37.5-50.1) L 04/16/17 04:21 MPV 8.9 fL (9.4-12.4) L 04/16/17 04:21 ESR >= 130 mm/hr (0-10) H 04/13/17 06:27 Glucose 111 mg/dL (70-99) H 04/16/17 04:21 POC Glucose 266 (58-89) H 04/17/17 21:00 Hemoglobin A1c 12.1 % (-5.6) H 04/14/17 05:44 Magnesium 1.4 mg/dL (1.6-2.6) L 04/14/17 06:50 C-Reactive Protein 79 mg/L (Less than 5) H 04/13/17 06:27 - VTE Documentation of Mechanical Device: Intermittent pneumatic compression device Consult Discharge Plan - Plan Referrals: Unassigned,Provider [Primary Care Provider] -
--- NOTE | 2017-04-18 15:33 | Infectious Disease Progress No ---
Date of Encounter: 04/18/17 Time of Encounter: 15:31 - Assessment and Plan (1) Septic joint of right elbow Current Visit: Yes Status: Acute Location: Right elbow. Etiology unclear. The patient denies any known traumatic injury prior to the onset of symptoms. Causative organism MSSA. Failed outpatient oral antibiotic therapy (five days of PO Bactrim). ESR >130. CRP 79. The patient had no SIRS criteria. X-ray of the right elbow showed a suspected avulsion injury of an olecranon enthesophyte at the insertion of the right triceps brachii tendon with new mild superior displacement, persistent soft tissue swelling posterior to the right olecranon process potentially due to hematoma, cellulitis, or olecranon bursitis , and persistent moderate right elbow joint effusion with no visualized intra- articular fracture. A tiny bony fragment adjacent to the right ulnar coronary process appears related to remote injury. Ortho consulted. Status post right elbow I & D 04/14/[address] De La Torre. Operative note reviewed. Evidence of OM noted intra-op. Continue cefazolin 2 grams IV Q8H. Continue wound care and activity restrictions as outlined by the primary team. Duration of treatment depends on the clinical picture, but likely 6 weeks of IV antibiotics. Monitor renal function and dose-adjust antibiotics. director of patient financial services consulted for discharge planning. [facility] has denies patient. director of patient financial services working to get patient placed at [facility] to complete antibiotic therapy. Midline placed 04/17/17. Qualifiers: Septic arthritis organism: staphylococcal Qualified Code(s): M00.021 - Staphylococcal arthritis, right elbow (2) Osteomyelitis Current Visit: Yes Status: Acute Location: Right olecranon. Causative organism MSSA. Likely secondary to right elbow septic arthritis. Status post I & D. Continue antibiotics as above. Qualifiers: Osteomyelitis type: acute hematogenous Osteomyelitis location: other site Qualified Code(s): M86.08 - Acute hematogenous osteomyelitis, other sites (3) Cellulitis of right elbow Current Visit: Yes Status: Acute Causative organism likely MSSA. Failed outpatient oral antibiotic therapy. Etiology not entirely clear since the patient denies trauma/injury, but there is a superficial abrasion noted to the posterior elbow. Antibiotic recommendations as above. (4) Hypertension Current Visit: Yes Status: Chronic Qualifiers: Hypertension type: essential hypertension Qualified Code(s): I10 - Essential (primary) hypertension (5) Tobacco abuse Current Visit: Yes Status: Acute (6) Medical non-compliance Current Visit: Yes Status: Chronic (7) Uncontrolled diabetes mellitus Current Visit: Yes Status: Chronic HgbA1C 12.1%. Recommend aggressive glucose monitoring and control to promote wound healing and prevent re-infection. Further management per the primary team. Qualifiers: Diabetes mellitus type: type 2 Diabetes mellitus complication status: with other specified complication Diabetes mellitus senior care insulin use: unspecified senior care insulin use status Qualified Code(s): E11.69 - Type 2 diabetes mellitus with other specified complication; E11.65 - Type 2 diabetes mellitus with hyperglycemia - Subjective Interval history: Patient seen and examined. No acute events noted overnight. The patient states that overall he feels well. He reports minimal pain at the surgical site at this time.. He denies any fevers, chills, or rigors. He denies any chest pain, shortness of breath, or cough. He denies any nausea, vomiting, diarrhea, or constipation. He denies any abdominal pain and states that appetite is okay. He denies any urinary complaints. He denies any oral thrush or new skin lesions. Infect Dis PN-Objective Data - Labs CBC & Chem 7: 04/16/17 04:21 04/16/17 04:21 Labs: Laboratory Results - last 24 hr 04/17/17 04/17/17 04/17/17 06:56 10:59 16:33 POC Glucose 151 H 225 H 184 H 04/17/17 21:00 POC Glucose 266 H Cultures: Cultures 04/14/17 14:25 Anaerobic Culture - Preliminary Right Elbow At this time, no anaerobic growth is present. The culture will be finalized after 5 days of incubation. 04/14/17 14:35 Anaerobic Culture - Preliminary Right Elbow At this time, no anaerobic growth is present. The culture will be finalized after 5 days of incubation. 04/14/17 14:25 Surgical Biopsy Culture - Final Right Elbow Staphylococcus aureus 04/14/17 14:35 Surgical Biopsy Culture - Final Right Elbow Staphylococcus aureus Exam - Constitutional Vitals: Temp Pulse Resp BP Pulse Ox 98.1 F 73 16 104/58 97 04/18/17 11:00 04/18/17 11:00 04/18/17 11:00 04/18/17 11:00 08/30/17 11:00 General appearance: average body habitus, cooperative, no acute distress - Head Head exam: Present: atraumatic, normal inspection, normocephalic - Eye Eye exam: Present: EOMI, normal appearance, PERRL Pupils: Present: normal accommodation - ENT ENT exam: Present: mucous membranes moist - Neck Neck exam: Present: normal inspection - Respiratory Respiratory exam: Present: CTAB. Absent: rales, respiratory distress, rhonchi, wheezes - Cardiovascular Cardiovascular exam: Present: RRR, +S1, +S2 - GI/Abdominal GI/Abdominal exam: Present: normal bowel sounds, soft. Absent: distended, tenderness - Extremities Exam Extremities exam: Present: joint swelling, tenderness (right elbow). Absent: pedal edema Additional comments: Right elbow splint and dressing C/D/I. ROM not assessed. Right hand edema resolved. - Neurological Exam Neurological exam: Present: alert, oriented X3, no focal deficits - Psychiatric Psychiatric exam: Present: normal affect, normal mood - Skin Skin exam: Present: dry, intact, normal color, warm - VTE Documentation of Mechanical Device: Intermittent pneumatic compression device Consult Discharge Plan - Plan Referrals: Unassigned,Provider [Primary Care Provider] -
[2017-04-19] MEDS: ceFAZolin 2,000 MG in D5% in Water 100 ML IVPB SCH ×3 (00:14→10:40)
[2017-04-19] MEDS: Acetaminophen 325 MG TABLET PO PRN ×4 (00:36→22:26)
--- NOTE | 2017-04-19 08:26 | Internal Med Progress Note ---
<Shahriar Figueroa - Last Filed: 04/19/17 11:44> Date of Encounter: 04/19/17 Time of Encounter: 08:25 - Assessment and plan (1) Septic joint of right elbow Current Visit: Yes Status: Acute Assessment and plan: s/p I&D 04/14/17 and noted to have osteomyelitis during intraop per note. Wound cultures positive for Staph aureus MSSA, lazcano sensitive. Blood cultures have been negative to date Anaerobic cultures have been negative -Ancef day 4, started 04/14/17 evening. Ancef 2g IV q8h. Will require a total of 6 weeks antibiotics. Due to development of new rash, which may be drug rash secondary to cephalosporin, consider levofloxacin. Social work note reviewed from yesterday, will follow up again today. No placement yet. Qualifiers: Septic arthritis organism: staphylococcal Qualified Code(s): M00.021 - Staphylococcal arthritis, right elbow (2) Cephalosporin drug rash Current Visit: Yes Status: Acute Assessment and plan: Patient developed bilateral pruritic mildly erythematous maculopapular rash with excoriation starting yesterday to upper arms and upper thighs. Has been on Ancef since 04/14/17. Questionable if drug rash. Consider Levofloxacin/Moxifloxacin. (3) Osteomyelitis Current Visit: Yes Status: Acute Assessment and plan: Continue per plan in assessment above. Qualifiers: Osteomyelitis type: acute hematogenous Osteomyelitis location: other site Qualified Code(s): M86.08 - Acute hematogenous osteomyelitis, other sites (4) Cellulitis of right elbow Current Visit: Yes Status: Acute Assessment and plan: Continue per plan in assessment above. (5) Olecranon bursitis Current Visit: Yes Status: Acute Assessment and plan: Continue per plan in assessment above. Qualifiers: Laterality: right Qualified Code(s): M70.21 - Olecranon bursitis, right elbow (6) Uncontrolled diabetes mellitus Current Visit: Yes Status: Chronic Assessment and plan: POC glucose 283. Continue sliding scale per protocol. 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 Continue low dose lisinopril. Qualifiers: Hypertension type: essential hypertension Qualified Code(s): I10 - Essential (primary) hypertension (8) Medical non-compliance Current Visit: Yes Status: Chronic Assessment and plan: Patient requiring long-term IV antibiotics. Has been refusing doses at times. Refused one dose last evening according to Nurse note. floor worker well service on board. Pending placement. (9) Tobacco abuse Current Visit: Yes Status: Chronic Assessment and plan: Patient has a history of tobacco abuse. Patient was counseled about smoking cessation, refuses at this time. Patient just returned to room after going outside to smoke. - Subjective Interval history: Patient did well overnight, however reports new rash of upper arms and upper inner thighs bilaterally that is pruritic. Nurse note reviewed, patient refused ancef at evening dose but was agreeable to it this morning. Social work note reviewed 04/18/17, no definite placement or refusal from [facility] facility around 14:00pm. Denies fevers, chills, sweats, nausea, vomiting, headaches, chest pain, shortness of breath, abdominal pain, changes in bowels or bladder, weakness, or loss of sensation. - Constitutional Vitals: Temp Pulse Resp BP Pulse Ox 98.3 F 78 18 127/83 96 04/19/17 06:45 04/19/17 06:45 04/19/17 06:45 04/19/17 06:45 04/19/17 06:45 General appearance: Present: cooperative, A&O X 3, pleasant, no acute distress, obese, answers questions appropriately - Head Head exam: Present: atraumatic, normal inspection, normocephalic - Eye Eye exam: Present: EOMI, normal appearance - ENT ENT exam: Present: mucous membranes moist, normal exam, normal oropharynx - Neck Neck exam general surgery: Present: full ROM, normal inspection, supple, trachea midline. Absent: tenderness - Respiratory Respiratory exam: Present: CTAB. Absent: rales, rhonchi, wheezes Additional comments: harsh breath sounds - Cardiovascular Cardiovascular exam: Present: RRR, +S1, +S2. Absent: diastolic murmur, systolic murmur - GI/Abdominal GI/Abdominal exam: Present: normal bowel sounds, soft. Absent: distended, tenderness - Extremities Exam Extremities exam: Present: full ROM (except as otherwise noted.), normal inspection (except as otherwise noted), tenderness, warm, radial pulses palpable and symmetrical. Absent: pedal edema Additional comments: Right upper extremity in splint wrapped with willie bandages. mild pain with palpation over elbow region, good sensation, movement, strength, and pulses to right upper extremity. Rash of upper medial thighs and upper medial arms bilaterally as noted below. - Back Exam Back exam: Present: full ROM, normal inspection. Absent: rash noted, tenderness - Neurological Exam Neurological exam: Present: alert, oriented X3, no focal deficits, strengths equal and symetr throughout (lower extremities). Absent: facial droop, speech deficit - Psychiatric Psychiatric exam: Present: normal affect, normal mood - Skin Skin exam: Present: dry, rash (mildly erythematous macuulopapular pruritic rash with excoriation without bleeding or drainage or crusting noted bilateral medial upper arm and bilateral medial thighs), warm Internal Medicine: Result - Labs CBC & Chem 7: 04/16/17 04:21 04/16/17 04:21 - VTE Documentation of Mechanical Device: Graduated compression elastic hosiery Consult Discharge Plan - Plan Referrals: Unassigned,Provider [Primary Care Provider] - Zak De La Torre MD [Partnered Physician] - 04/26/17 10:20 am <Darrell Oro - Last Filed: 04/19/17 15:47> Date of Encounter: 04/19/17 - Assessment and plan (1) Septic joint of right elbow Current Visit: Yes Status: Acute Qualifiers: Septic arthritis organism: staphylococcal Qualified Code(s): M00.021 - Staphylococcal arthritis, right elbow (2) Cellulitis of right elbow Current Visit: Yes Status: Acute (3) Olecranon bursitis Current Visit: Yes Status: Acute Qualifiers: Laterality: right Qualified Code(s): M70.21 - Olecranon bursitis, right elbow (4) DVT prophylaxis Current Visit: Yes Status: Acute (5) Tobacco abuse Current Visit: Yes Status: Chronic (6) Hypertension Current Visit: Yes Status: Chronic Qualifiers: Hypertension type: essential hypertension Qualified Code(s): I10 - Essential (primary) hypertension (7) Medical non-compliance Current Visit: Yes Status: Chronic (8) Uncontrolled diabetes mellitus Current Visit: Yes Status: Chronic Qualifiers: Diabetes mellitus type: type 2 Diabetes mellitus complication status: with other specified complication Diabetes mellitus jail insulin use: unspecified jail insulin use status Qualified Code(s): E11.69 - Type 2 diabetes mellitus with other specified complication; E11.65 - Type 2 diabetes mellitus with hyperglycemia - Constitutional Vitals: Temp Pulse Resp BP Pulse Ox 98.5 F 73 16 132/76 95 04/19/17 11:21 04/19/17 11:21 04/19/17 11:21 04/19/17 11:21 04/19/17 11:21 Internal Medicine: Result - Labs CBC & Chem 7: 04/16/17 04:21 04/16/17 04:21 - Attending Attestation I have independently seen and examined this patient on 04/19. I have reviewed his EMR and discussed plan of care with the resident, the patient Mr Champion is being managed for MSSA Left septic bursitis/elbow osteomyelitis, cellulitis and tenovitis, uncontrolled DM, HTN This morning, he has a new maculopapular rash on his arms, trunk and lower extremities, pruritic and possibly a drug rash. He continues to go outside to smoke, and occasionally declines treatment, but is otherwise stable and waiting placement to SNF for prolonged antibiotics Physical exam: Pruritic maculopapular fine rash on his bilateral shoulders, hip region and trunk, vitals are stable, chest is clear, he has a clean dressing on his L elbow and his hand is neurovascularly intact, he is ambulatory Labs and Imaging reviewed: Stable Plan: Hold Cephalosporin, change to levoflox due to drug rash. Monitor closely. Continue other management, patient is medically cleared for discharge, tobacco cessation counselling done Rest of details as in resident physicians documentation
[2017-04-19] MEDS: Insulin DETEMIR 100 UNIT/ML X5UNITS SQ SCH ×2 (10:39→22:26)
[2017-04-19] MEDS: Insulin LISPRO 300 UNITS/3 ML VIAL SQ SCH ×4 (10:40→22:26)
--- NOTE | 2017-04-19 11:54 | Infectious Disease Progress No ---
Date of Encounter: 04/19/17 Time of Encounter: 11:50 - Assessment and Plan (1) Septic joint of right elbow Current Visit: Yes Status: Acute Location: Right elbow. Etiology unclear. The patient denies any known traumatic injury prior to the onset of symptoms. Causative organism MSSA. Failed outpatient oral antibiotic therapy (five days of PO Bactrim). ESR >130. CRP 79. The patient had no SIRS criteria. X-ray of the right elbow showed a suspected avulsion injury of an olecranon enthesophyte at the insertion of the right triceps brachii tendon with new mild superior displacement, persistent soft tissue swelling posterior to the right olecranon process potentially due to hematoma, cellulitis, or olecranon bursitis , and persistent moderate right elbow joint effusion with no visualized intra- articular fracture. A tiny bony fragment adjacent to the right ulnar coronary process appears related to remote injury. Ortho consulted. Status post right elbow I & D 04/14/[address] De La Torre. Operative note reviewed. Evidence of OM noted intra-op. Continue cefazolin 2 grams IV Q8H. Continue wound care and activity restrictions as outlined by the primary team. Duration of treatment depends on the clinical picture, but likely 6 weeks of IV antibiotics. Monitor renal function and dose-adjust antibiotics. guest services manager consulted for discharge planning. [facility] has denies patient. guest services manager working to get patient [facility] to complete antibiotic therapy. Midline placed 04/17/17. Qualifiers: Septic arthritis organism: staphylococcal Qualified Code(s): M00.021 - Staphylococcal arthritis, right elbow (2) Osteomyelitis Current Visit: Yes Status: Acute Location: Right olecranon. Causative organism MSSA. Likely secondary to right elbow septic arthritis. Status post I & D. Continue antibiotics as above. Qualifiers: Osteomyelitis type: acute hematogenous Osteomyelitis location: other site Qualified Code(s): M86.08 - Acute hematogenous osteomyelitis, other sites (3) Cellulitis of right elbow Current Visit: Yes Status: Acute Causative organism likely MSSA. Failed outpatient oral antibiotic therapy. Etiology not entirely clear since the patient denies trauma/injury, but there is a superficial abrasion noted to the posterior elbow. Antibiotic recommendations as above. (4) Hypertension Current Visit: Yes Status: Chronic Qualifiers: Hypertension type: essential hypertension Qualified Code(s): I10 - Essential (primary) hypertension (5) Tobacco abuse Current Visit: Yes Status: Chronic (6) Medical non-compliance Current Visit: Yes Status: Chronic (7) Uncontrolled diabetes mellitus Current Visit: Yes Status: Chronic HgbA1C 12.1%. Recommend aggressive glucose monitoring and control to promote wound healing and prevent re-infection. Further management per the primary team. Qualifiers: Diabetes mellitus type: type 2 Diabetes mellitus complication status: with other specified complication Diabetes mellitus long-term insulin use: unspecified long-term insulin use status Qualified Code(s): E11.69 - Type 2 diabetes mellitus with other specified complication; E11.65 - Type 2 diabetes mellitus with hyperglycemia - Subjective Interval history: Patient seen and examined. No acute events noted overnight. The patient states that overall he feels well. He reports minimal pain at the surgical site at this time. He denies any fevers, chills, or rigors. He denies any chest pain, shortness of breath, or cough. He denies any nausea, vomiting, diarrhea, or constipation. He denies any abdominal pain and states that appetite is okay. He denies any urinary complaints. He denies any oral thrush or new skin lesions. Infect Dis PN-Objective Data - Labs CBC & Chem 7: 04/16/17 04:21 04/16/17 04:21 Labs: Laboratory Results - last 24 hr 04/18/17 20:54 POC Glucose 283 H Cultures: Cultures 04/14/17 14:25 Anaerobic Culture - Preliminary Right Elbow At this time, no anaerobic growth is present. The culture will be finalized after 5 days of incubation. 04/14/17 14:35 Anaerobic Culture - Preliminary Right Elbow At this time, no anaerobic growth is present. The culture will be finalized after 5 days of incubation. 04/14/17 14:25 Surgical Biopsy Culture - Final Right Elbow Staphylococcus aureus 04/14/17 14:35 Surgical Biopsy Culture - Final Right Elbow Staphylococcus aureus Exam - Constitutional Vitals: Temp Pulse Resp BP Pulse Ox 98.5 F 73 16 132/76 95 04/19/17 11:21 04/19/17 11:21 04/19/17 11:21 04/19/17 11:21 04/19/17 11:21 General appearance: average body habitus, cooperative, no acute distress - Head Head exam: Present: atraumatic, normal inspection, normocephalic - Eye Eye exam: Present: EOMI, normal appearance, PERRL Pupils: Present: normal accommodation - ENT ENT exam: Present: mucous membranes moist - Neck Neck exam: Present: normal inspection - Respiratory Respiratory exam: Present: CTAB. Absent: rales, respiratory distress, rhonchi, wheezes - Cardiovascular Cardiovascular exam: Present: RRR, +S1, +S2 - GI/Abdominal GI/Abdominal exam: Present: normal bowel sounds, soft. Absent: distended, tenderness - Extremities Exam Extremities exam: Present: joint swelling (right elbow), tenderness (right elbow ). Absent: pedal edema Additional comments: Right elbow surgical incision noted to the posterior aspect with sutures intact. Minimal drainage noted on the dressing. - Neurological Exam Neurological exam: Present: alert, oriented X3, no focal deficits - Psychiatric Psychiatric exam: Present: normal affect, normal mood - Skin Skin exam: Present: dry, intact, normal color, warm - VTE Documentation of Mechanical Device: Graduated compression elastic hosiery Consult Discharge Plan - Plan Referrals: Unassigned,Provider [Primary Care Provider] - Zak De La Torre MD [Partnered Physician] - 04/26/17 10:20 am
[2017-04-20] MEDS: Acetaminophen 325 MG TABLET PO PRN ×2 (05:45→19:16)
--- NOTE | 2017-04-20 08:58 | Internal Med Progress Note ---
<NakulastonShahriar mims - Last Filed: 04/20/17 11:37> Date of Encounter: 04/20/17 Time of Encounter: 08:58 - Assessment and plan (1) Septic joint of right elbow Current Visit: Yes Status: Acute Assessment and plan: s/p I&D 04/14/17 and noted to have osteomyelitis during intraop per note. Wound cultures positive for Staph aureus MSSA, lazcano sensitive. Blood cultures negative Anaerobic cultures negative -Ancef day 4, started 04/14/17 evening, stopped 04/19/17 afternoon due to drug rash. -Started Levaquin 750mg qd 04/19/17. Will require a total of 6 weeks antibiotics. Social work note reviewed from yesterday, will follow up again today. No placement yet. Qualifiers: Septic arthritis organism: staphylococcal Qualified Code(s): M00.021 - Staphylococcal arthritis, right elbow (2) Cephalosporin drug rash Current Visit: Yes Status: Acute Assessment and plan: Patient developed bilateral pruritic mildly erythematous maculopapular rash with excoriation starting 04/18/17 to upper arms and upper thighs. Has been on Ancef since 04/14/17. Discontinued 04/19/17 afternoon due to rash. Started Levofloxacin 04/19/17. (3) Osteomyelitis Current Visit: Yes Status: Acute Assessment and plan: Continue per plan in assessment above. Qualifiers: Osteomyelitis type: acute hematogenous Osteomyelitis location: other site Qualified Code(s): M86.08 - Acute hematogenous osteomyelitis, other sites (4) Cellulitis of right elbow Current Visit: Yes Status: Acute Assessment and plan: Continue per plan in assessment above. (5) Olecranon bursitis Current Visit: Yes Status: Acute Assessment and plan: Continue per plan in assessment above. Qualifiers: Laterality: right Qualified Code(s): M70.21 - Olecranon bursitis, right elbow (6) Uncontrolled diabetes mellitus Current Visit: Yes Status: Chronic Assessment and plan: POC glucose 162. Continue sliding scale per protocol. Qualifiers: Diabetes mellitus type: type 2 Diabetes mellitus complication status: with other specified complication Diabetes mellitus care home insulin use: unspecified care home insulin use status Qualified Code(s): E11.69 - Type 2 diabetes mellitus with other specified complication; E11.65 - Type 2 diabetes mellitus with hyperglycemia (7) Hypertension Current Visit: Yes Status: Chronic Assessment and plan: Bp 95/65, rate 69 this morning. Continue low dose lisinopril. Qualifiers: Hypertension type: essential hypertension Qualified Code(s): I10 - Essential (primary) hypertension (8) Medical non-compliance Current Visit: Yes Status: Chronic Assessment and plan: Patient requiring long-term IV antibiotics. Has been refusing doses at times. bed worker on board. Pending placement. (9) Tobacco abuse Current Visit: Yes Status: Chronic Assessment and plan: Patient has a history of tobacco abuse. Patient was counseled about smoking cessation, refuses at this time. Patient just returned to room after going outside to smoke. - Subjective Interval history: Patient did well overnight. Nurse note reviewed and patient was a little upset that security was called after their discussion that he could not leave the floor and hospital. Patient otherwise has noted improvement of his rash and continues having mild pain of right elbow. Social work note reveiwed from 04/19/17 indicating no formal placement yet, plan for site visit today followed by a yes or no. Denies fevers, chills, sweats, nausea, vomiting, headaches, chest pain, shortness of breath, abdominal pain, changes in bowels or bladder, weakness, or loss of sensation. - Constitutional Vitals: Temp Pulse Resp BP Pulse Ox 98.1 F 69 16 95/65 95 04/20/17 07:29 04/20/17 07:29 04/20/17 07:29 04/20/17 07:29 04/20/17 07:29 General appearance: Present: cooperative, A&O X 3, pleasant, no acute distress, obese, answers questions appropriately - Head Head exam: Present: atraumatic, normal inspection, normocephalic - Eye Eye exam: Present: EOMI, normal appearance - ENT ENT exam: Present: mucous membranes moist, normal exam, normal external ear exam , normal oropharynx - Neck Neck exam general surgery: Present: full ROM, normal inspection, supple, trachea midline - Respiratory Respiratory exam: Present: CTAB. Absent: rales, rhonchi, wheezes - Cardiovascular Cardiovascular exam: Present: RRR, +S1, +S2. Absent: diastolic murmur, systolic murmur - GI/Abdominal GI/Abdominal exam: Present: normal bowel sounds, soft. Absent: distended, tenderness - Extremities Exam Extremities exam: Present: full ROM (ecept as otherwise noted), normal inspection (except as otherwise noted), tenderness, warm, radial pulses palpable and symmetrical. Absent: pedal edema Additional comments: Right upper extremity in splint wrapped with willie bandages. Mild pain with palpation over elbow region. Good sensation, movement, strength, and pulses to right upper extremity. Rash of upper medial thighs and upper arms bilaterally as noted below is resolving. - Back Exam Back exam: Present: full ROM, normal inspection. Absent: rash noted, tenderness - Neurological Exam Neurological exam: Present: alert, oriented X3, no focal deficits, strengths equal and symetr throughout (lower extremities). Absent: facial droop, speech deficit - Psychiatric Psychiatric exam: Present: normal affect, normal mood - Skin Skin exam: Present: dry, rash (mildly erythematous maculopapular pruritic rash with excoriation without bleeding or drainage or crusting noted bilateral medial upper arm and bilateral medial thighs), warm Internal Medicine: Result - Labs CBC & Chem 7: 04/16/17 04:21 04/16/17 04:21 - VTE Documentation of Mechanical Device: Graduated compression elastic hosiery Consult Discharge Plan - Plan Referrals: Unassigned,Provider [Primary Care Provider] - Corry Hdz CNP [Advanced Practice Nurse] - 05/08/17 9:00 am Zak De La Torre MD [Partnered Physician] - 04/26/17 10:20 am <Darrell Oro - Last Filed: 04/20/17 13:02> Date of Encounter: 04/20/17 - Assessment and plan (1) Septic joint of right elbow Current Visit: Yes Status: Acute Qualifiers: Septic arthritis organism: staphylococcal Qualified Code(s): M00.021 - Staphylococcal arthritis, right elbow (2) Cellulitis of right elbow Current Visit: Yes Status: Acute (3) Olecranon bursitis Current Visit: Yes Status: Acute Qualifiers: Laterality: right Qualified Code(s): M70.21 - Olecranon bursitis, right elbow (4) DVT prophylaxis Current Visit: Yes Status: Acute (5) Tobacco abuse Current Visit: Yes Status: Chronic (6) Hypertension Current Visit: Yes Status: Chronic Qualifiers: Hypertension type: essential hypertension Qualified Code(s): I10 - Essential (primary) hypertension (7) Medical non-compliance Current Visit: Yes Status: Chronic (8) Uncontrolled diabetes mellitus Current Visit: Yes Status: Chronic Qualifiers: Diabetes mellitus type: type 2 Diabetes mellitus complication status: with other specified complication Diabetes mellitus long winder tender insulin use: unspecified care home insulin use status Qualified Code(s): E11.69 - Type 2 diabetes mellitus with other specified complication; E11.65 - Type 2 diabetes mellitus with hyperglycemia - Constitutional Vitals: Temp Pulse Resp BP Pulse Ox 98.8 F 97 16 150/94 95 04/20/17 11:46 04/20/17 11:46 04/20/17 11:46 04/20/17 11:46 04/20/17 11:46 Internal Medicine: Result - Labs CBC & Chem 7: 04/16/17 04:21 04/16/17 04:21 - Attending Attestation I have independently seen and examined this patient on 04/20. I have reviewed his EMR and discussed plan of care with the resident, the patient Mr Champion is being managed for MSSA Left septic bursitis/elbow osteomyelitis, cellulitis and tenovitis, uncontrolled DM, HTN This morning, he has no new complains He states his rash is improving, compared to yesterday He continues to go outside to smoke, and occasionally declines treatment, but is otherwise stable and waiting placement to SNF for prolonged antibiotics Physical exam: Pruritic maculopapular fine rash on his bilateral shoulders, hip region and trunk, vitals are stable, chest is clear, he has a clean dressing on his L elbow and his hand is neurovascularly intact, he is ambulatory and has no neurologis deficits, HS S1, S2 only, no m/g/r, abdomen is not tender Labs and Imaging reviewed: No indications for labs for now Plan: Continue current management. Duration of therapy is 6 weeks, will need Infectious disease follow up as out-patient. FS uncontrolled, increase levemir, patient is not compliant with diet, educated. Monitor closely. Continue other management, patient is medically cleared for discharge, tobacco cessation counselling done Rest of details as in resident physicians documentation
[2017-04-20] MEDS: Insulin LISPRO 300 UNITS/3 ML VIAL SQ SCH ×5 (09:16→21:39)
[2017-04-20] MEDS: Levofloxacin 750 MG/150 ML 750 MG/150 ML BAG IVPB SCH (09:28)
--- NOTE | 2017-04-20 10:13 | Infectious Disease Progress No ---
Date of Encounter: 04/20/17 Time of Encounter: 10:11 - Assessment and Plan (1) Septic joint of right elbow Current Visit: Yes Status: Acute Location: Right elbow. Etiology unclear. The patient denies any known traumatic injury prior to the onset of symptoms. Causative organism MSSA. Failed outpatient oral antibiotic therapy (five days of PO Bactrim). ESR >130. CRP 79. The patient had no SIRS criteria. X-ray of the right elbow showed a suspected avulsion injury of an olecranon enthesophyte at the insertion of the right triceps brachii tendon with new mild superior displacement, persistent soft tissue swelling posterior to the right olecranon process potentially due to hematoma, cellulitis, or olecranon bursitis , and persistent moderate right elbow joint effusion with no visualized intra- articular fracture. A tiny bony fragment adjacent to the right ulnar coronary process appears related to remote injury. Ortho consulted. Status post right elbow I & D 04/14/[address] De La Torre. Operative note reviewed. Evidence of OM noted intra-op. Continue cefazolin 2 grams IV Q8H. Antibiotics switched to Levaquin per the primary team due to concern for drug rash. Would recommend switching back to cefazolin. See below. Continue wound care and activity restrictions as outlined by the primary team. Duration of treatment depends on the clinical picture, but likely 6 weeks of IV antibiotics. Monitor renal function and dose-adjust antibiotics. student support services director consulted for discharge planning. Midline placed 04/17/17. Get weekly CBC, BUN/Cr, ESR, and CRP every Sunday for the duration of antibiotic therapy. Weekly EPI care. Follow up with ID 05/08/17 at 0900. Qualifiers: Septic arthritis organism: staphylococcal Qualified Code(s): M00.021 - Staphylococcal arthritis, right elbow (2) Osteomyelitis Current Visit: Yes Status: Acute Location: Right olecranon. Causative organism MSSA. Likely secondary to right elbow septic arthritis. Status post I & D. Continue antibiotics as above. Qualifiers: Osteomyelitis type: acute hematogenous Osteomyelitis location: other site Qualified Code(s): M86.08 - Acute hematogenous osteomyelitis, other sites (3) Cellulitis of right elbow Current Visit: Yes Status: Acute Causative organism likely MSSA. Failed outpatient oral antibiotic therapy. Etiology not entirely clear since the patient denies trauma/injury, but there is a superficial abrasion noted to the posterior elbow. Antibiotic recommendations as above. (4) Hypertension Current Visit: Yes Status: Chronic Qualifiers: Hypertension type: essential hypertension Qualified Code(s): I10 - Essential (primary) hypertension (5) Tobacco abuse Current Visit: Yes Status: Chronic (6) Medical non-compliance Current Visit: Yes Status: Chronic (7) Uncontrolled diabetes mellitus Current Visit: Yes Status: Chronic HgbA1C 12.1%. Recommend aggressive glucose monitoring and control to promote wound healing and prevent re-infection. Further management per the primary team. 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 Unlikely a drug rash given the appearance and distribution. Would recommend switching antibiotics back to cefazolin as previous prescribed by the ID service. - Subjective Interval history: Patient seen and examined. No acute events noted overnight. The patient states that overall he feels well. He reports minimal pain at the surgical site at this time. He denies any fevers, chills, or rigors. He denies any chest pain, shortness of breath, or cough. He denies any nausea, vomiting, diarrhea, or constipation. He denies any abdominal pain and states that appetite is okay. He denies any urinary complaints. He denies any oral thrush or new skin lesions. Infect Dis PN-Objective Data - Labs CBC & Chem 7: 04/16/17 04:21 04/16/17 04:21 Labs: Laboratory Results - last 24 hr 04/18/17 04/18/17 04/18/17 07:21 11:37 16:00 POC Glucose 112 H 337 H 118 H 04/19/17 04/19/17 04/19/17 07:10 11:20 16:59 POC Glucose 130 H 282 H 319 H 04/19/17 04/20/17 21:53 07:28 POC Glucose 274 H 162 H Cultures: Cultures 04/14/17 14:35 Anaerobic Culture - Final Right Elbow No anaerobes were recovered. 04/14/17 14:25 Anaerobic Culture - Final Right Elbow No anaerobes were recovered. 04/14/17 14:25 Surgical Biopsy Culture - Final Right Elbow Staphylococcus aureus 04/14/17 14:35 Surgical Biopsy Culture - Final Right Elbow Staphylococcus aureus Exam - Constitutional Vitals: Temp Pulse Resp BP Pulse Ox 98.1 F 69 16 95/65 95 04/20/17 07:29 04/20/17 07:29 04/20/17 07:29 04/20/17 07:29 04/20/17 07:29 General appearance: average body habitus, cooperative, no acute distress - Head Head exam: Present: atraumatic, normal inspection, normocephalic - Eye Eye exam: Present: EOMI, normal appearance, PERRL Pupils: Present: normal accommodation - ENT ENT exam: Present: mucous membranes moist - Neck Neck exam: Present: normal inspection - Respiratory Respiratory exam: Present: CTAB. Absent: rales, respiratory distress, rhonchi, wheezes - Cardiovascular Cardiovascular exam: Present: RRR, +S1, +S2 - GI/Abdominal GI/Abdominal exam: Present: normal bowel sounds, soft. Absent: distended, tenderness - Extremities Exam Extremities exam: Absent: pedal edema Additional comments: RUE cast and SAE wrap C/D/I. Hand edema has resolved. - Neurological Exam Neurological exam: Present: alert, oriented X3, no focal deficits - Psychiatric Psychiatric exam: Present: normal affect, normal mood - Skin Skin exam: Present: dry, intact, normal color, rash (Bilateral upper inner thighs, dry, itchy, macular.), warm - VTE Documentation of Mechanical Device: Graduated compression elastic hosiery Consult Discharge Plan - Plan Referrals: Unassigned,Provider [Primary Care Provider] - Zak De La Torre MD [Partnered Physician] - 04/26/17 10:20 am Crory Hdz CNP [Advanced Practice Nurse] - 05/08/17 9:00 am
[2017-04-20] MEDS: Insulin DETEMIR 100 UNIT/ML X5UNITS SQ SCH ×3 (10:40→21:39)
--- NOTE | 2017-04-20 17:33 | Orthopedics Progress Note ---
Date of Encounter: 04/20/17 Time of Encounter: 17:32 - Assessment and Plan (1) Olecranon bursitis Current Visit: Yes Status: Acute I did discuss the diagnosis in detail with the patient. He has a septic right olecranon bursitis with concern for underlying osteomyelitis. My suspicion for septic arthritis of the elbow joint itself is exceedingly low. An MRI with contrast of the right elbow has been ordered to confirm the suspicion of osteomyelitis and to evaluate the extent. I did discuss treatment options with the patient and given the bony resorption my recommendation was for open debridement and irrigation of the right olecranon bursa and bony curettage. The risks discussed included but were not limited to stiffness, bleeding, infection, blood clots, damage to neurovascular structures, tendons, ligaments, and bone. Also discussed was the risk of continued symptoms and possible need for further procedures. I did discuss the anesthesia risks including stroke, heart attack, and . I did discuss the reasonable, foreseeable postoperative course. He will likely require 6 weeks of IV antibiotics. The patient is at risk for soft tissue envelope healing issues given his diabetes. I explained all this to the patient in simple terms and he did wish to proceed. Surgery is planned for tomorrow morning. Qualifiers: Laterality: right Qualified Code(s): M70.21 - Olecranon bursitis, right elbow Subjective Interval history: S: Continuing to do well. Pain minimal to the right elbow. Here because of placement issues. O: Afebrile and the vitals are stable Dressing taken down and the incision is clean, dry, and intact. No drainage. Painless range of motion of the right elbow from 0-125 degrees. The patient can actively flex and extend all digits, extend the thumb, cross the index and long fingers, make an okay sign, and oppose the thumb. The fingertips are all grossly sensate and well-perfused, and the radial artery pulse is 2+. OR cultures growing MSSA. 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 P: IV antibiotics per the infectious disease team; currently on Levaquin due to a drug reaction to the Ancef. I anticipate 6 weeks of IV antibiotics through a PICC. Daily dressing changes. Splint to the posterior right elbow to protect the wound. Orthopedically stable, follow up with me in 1 week for a wound evaluation. Awaiting placement. Objective Vital signs: Vital Signs Temp Pulse Resp BP Pulse Ox 04/20/17 17:24 98.5 F 84 16 105/72 96 04/20/17 11:46 98.8 F 97 16 150/94 95 04/20/17 07:29 98.1 F 69 16 95/65 95 04/20/17 00:10 98.2 F 72 16 94/67 100 04/19/17 19:01 97.9 F 87 18 107/73 95 Intake and Output 04/20/17 04/20/17 04/20/17 07:59 15:59 23:59 Intake Total 990 / 990 Balance 990 / 990 Intake: IV Fluids 150 / 150 Levaquin Premix 750mg/150 150 / 150 mL 750 mg In 150 ml @ 100 mls/hr IVPB DAILY KARLEY Rx#:[id number] Oral 840 / 840 Other: Meal Lunch Percent of Meal Consumed 100% # Voids 1 3 5 Blood Glucose* 162 246 125 - Labs CBC & BMP: 04/16/17 04:21 04/16/17 04:21 Labs: Abnormal lab results RBC 3.76 M/mcL (4.19-5.50) L 04/16/17 04:21 Hgb 11.8 g/dL (12.9-16.9) L D 04/16/17 04:21 Hct 35.3 % (37.5-50.1) L 04/16/17 04:21 MPV 8.9 fL (9.4-12.4) L 04/16/17 04:21 ESR >= 130 mm/hr (0-10) H 04/13/17 06:27 Glucose 111 mg/dL (70-99) H 04/16/17 04:21 POC Glucose 246 (58-89) H 04/20/17 11:11 Hemoglobin A1c 12.1 % (-5.6) H 04/14/17 05:44 Magnesium 1.4 mg/dL (1.6-2.6) L 04/14/17 06:50 C-Reactive Protein 79 mg/L (Less than 5) H 04/13/17 06:27 - VTE Documentation of Mechanical Device: Graduated compression elastic hosiery Consult Discharge Plan - Plan Referrals: Unassigned,Provider [Primary Care Provider] - Corry Hdz CNP [Advanced Practice Nurse] - 05/08/17 9:00 am Zak De La Torre MD [Partnered Physician] - 04/26/17 10:20 am
[2017-04-21] MEDS: Acetaminophen 325 MG TABLET PO PRN (05:05)
[2017-04-21] MEDS: Levofloxacin 750 MG/150 ML 750 MG/150 ML BAG IVPB SCH (09:07)
[2017-04-21] MEDS: Insulin LISPRO 300 UNITS/3 ML VIAL SQ SCH ×6 (09:08→20:12)
[2017-04-21] MEDS: Insulin DETEMIR 100 UNIT/ML X5UNITS SQ SCH ×2 (09:16→20:12)
--- NOTE | 2017-04-21 12:09 | Internal Med Progress Note ---
Date of Encounter: 04/21/17 Time of Encounter: 12:09 - Assessment and plan (1) Septic joint of right elbow Current Visit: Yes Status: Acute Assessment and plan: s/p I&D 04/14/17 and noted to have osteomyelitis during intraop per note. Wound cultures positive for Staph aureus MSSA, lazcano sensitive. Blood cultures negative Anaerobic cultures negative -Ancef day 4, started 04/14/17 evening, stopped 04/19/17 afternoon due to drug rash. -Started Levaquin 750mg qd 04/19/17. Will require a total of 6 weeks antibiotics. -Obtain EKG once weekly to monitor QTc Social work note reviewed from yesterday, will follow up again today. No placement yet. Qualifiers: Septic arthritis organism: staphylococcal Qualified Code(s): M00.021 - Staphylococcal arthritis, right elbow (2) Cellulitis of right elbow Current Visit: Yes Status: Acute Assessment and plan: Continue per plan in assessment above. (3) Olecranon bursitis Current Visit: Yes Status: Acute Assessment and plan: Continue per plan in assessment above. Qualifiers: Laterality: right Qualified Code(s): M70.21 - Olecranon bursitis, right elbow (4) DVT prophylaxis Current Visit: Yes Status: Acute Assessment and plan: Early ambulation (5) Tobacco abuse Current Visit: Yes Status: Chronic Assessment and plan: Patient has a history of tobacco abuse. Patient was counseled about smoking cessation, refuses at this time. Patient just returned to room after going outside to smoke. (6) Hypertension Current Visit: Yes Status: Chronic Assessment and plan: Controlled, continue current management Qualifiers: Hypertension type: essential hypertension Qualified Code(s): I10 - Essential (primary) hypertension (7) Medical non-compliance Current Visit: Yes Status: Chronic Assessment and plan: Patient requiring long-term IV antibiotics. Has been refusing doses at times. box worker on board. Pending placement. (8) Uncontrolled diabetes mellitus Current Visit: Yes Status: Chronic Assessment and plan: FS uncontrolled Increase levemir Add prandial insulin Continue ADA diet FS ACHS monitoring Qualifiers: Diabetes mellitus type: type 2 Diabetes mellitus complication status: with other specified complication Diabetes mellitus termination clerk insulin use: unspecified alf insulin use status Qualified Code(s): E11.69 - Type 2 diabetes mellitus with other specified complication; E11.65 - Type 2 diabetes mellitus with hyperglycemia - Subjective Interval history: Seen and evaluated, no new complains Rash has improved - Constitutional Vitals: Temp Pulse Resp BP Pulse Ox 97.4 F L 82 18 124/82 96 04/21/17 11:49 04/21/17 11:49 04/21/17 11:49 04/21/17 11:49 04/21/17 11:49 General appearance: Present: cooperative, A&O X 3, pleasant, no acute distress, obese, answers questions appropriately - Head Head exam: Present: atraumatic, normocephalic - Eye Eye exam: Present: PERRL, conjuntiva pink, sclera anicteric Pupils: Present: PERRL - Neck Neck exam general surgery: Present: supple, trachea midline. Absent: lymphadenopathy - Respiratory Respiratory exam: Present: CTAB. Absent: accessory muscle use, rales, rhonchi, wheezes - Cardiovascular Cardiovascular exam: Present: RRR, +S1, +S2. Absent: diastolic murmur, gallop, rubs, systolic murmur - GI/Abdominal GI/Abdominal exam: Present: normal bowel sounds, soft, no peritoneal signs. Absent: distended, tenderness - Extremities Exam Extremities exam: Present: warm, radial pulses palpable and symmetrical. Absent : calf tenderness, cyanotic, pedal edema - Neurological Exam Neurological exam: Present: alert, CN II-XII intact, oriented X3, no focal deficits. Absent: pronater drift, facial droop, speech deficit - Skin Skin exam: Present: dry, rash Internal Medicine: Result - Labs CBC & Chem 7: 04/16/17 04:21 04/16/17 04:21 - VTE Documentation of Mechanical Device: Graduated compression elastic hosiery Consult Discharge Plan - Plan Referrals: Unassigned,Provider [Primary Care Provider] - Corry Hdz CNP [Advanced Practice Nurse] - 05/08/17 9:00 am Zak De La Torre MD [Partnered Physician] - 04/26/17 10:20 am
[2017-04-21] MEDS: Ibuprofen 600 MG TABLET PO PRN ×2 (20:10)
[2017-04-22] MEDS: Ibuprofen 600 MG TABLET PO PRN (05:43)
[2017-04-22 05:58] LABS: Basophils % 0.6 %; Eosinophils # 0.4 K/mcL (0.0-0.6); Eosinophils % 6.7 %; Hematocrit 42.9 % (37.5-50.1); Immature Granulocytes % 0.3 % (0-4); Lymphocytes # 1.4 K/mcL (0.6-4.6); Lymphocytes % 21.4 %; Mean Corpuscular HGB Conc 32.4 g/dL (31.6-35.5); Mean Corpuscular Hemoglobin 30.5 pg (28.0-33.3); Mean Corpuscular Volume 94.3 fL (83.0-100.0); Mean Platelet Volume 8.9 fL (9.4-12.4); Monocytes # 0.8 K/mcL (0.0-1.3); Monocytes % 12.1 %; Neutrophils # 3.9 K/mcL (1.6-8.9); Platelet Count 403 K/mcL (140-400); Red Blood Count 4.55 M/mcL (4.19-5.50); Red Cell Distribution Width 12.7 % (11.5-14.5); Segmented Neutrophils % 58.9 %
[2017-04-22 06:10] LABS: BUN/Creatinine Ratio 24 (6-26); Blood Urea Nitrogen 22 mg/dL (8-26); Calcium 9.8 mg/dL (8.6-10.8); Carbon Dioxide 28 mEq/L (19-29); Chloride 100 mEq/L (98-109); Glucose 169 mg/dL (70-99); Osmolality,Calculated 289 (280-300); Potassium 4.1 mEq/L (3.5-4.5); Sodium 136 mEq/L (136-145); eGFR For African Americans > 60 (> 60); eGFR For Non-African Americans > 60 (> 60)
[2017-04-22 06:24] LABS: Hemoglobin 13.9 g/dL (12.9-16.9)
[2017-04-22] MEDS: Insulin LISPRO 300 UNITS/3 ML VIAL SQ SCH ×7 (08:32→22:06)
[2017-04-22] MEDS: Levofloxacin 750 MG/150 ML 750 MG/150 ML BAG IVPB SCH (08:33)
[2017-04-22] MEDS: Insulin DETEMIR 100 UNIT/ML X5UNITS SQ SCH ×2 (08:33→22:06)
--- NOTE | 2017-04-22 09:26 | Internal Med Progress Note ---
Date of Encounter: 04/22/17 Time of Encounter: 09:26 - Assessment and plan (1) Septic joint of right elbow Current Visit: Yes Status: Acute Assessment and plan: s/p I&D 04/14/17 and noted to have osteomyelitis during intraop per note. Wound cultures positive for Staph aureus MSSA, lazcano sensitive. Blood cultures negative Anaerobic cultures negative Ancef started 04/14/17 evening, stopped 04/19/17 afternoon due to drug rash. Started Levaquin 750mg qd 04/19/17. Will require a total of 6 weeks antibiotics. Obtain EKG once weekly to monitor QTc CBC and Chem this morning WNL Social work note reviewed from yesterday, will follow up again today. No placement yet. Qualifiers: Septic arthritis organism: staphylococcal Qualified Code(s): M00.021 - Staphylococcal arthritis, right elbow (2) Cellulitis of right elbow Current Visit: Yes Status: Acute Assessment and plan: Continue per plan in assessment above. (3) Olecranon bursitis Current Visit: Yes Status: Acute Assessment and plan: Continue per plan in assessment above. Qualifiers: Laterality: right Qualified Code(s): M70.21 - Olecranon bursitis, right elbow (4) DVT prophylaxis Current Visit: Yes Status: Acute Assessment and plan: Early ambulation (5) Tobacco abuse Current Visit: Yes Status: Chronic Assessment and plan: Patient has a history of tobacco abuse. Patient was counseled about smoking cessation, refuses at this time. Patient just returned to room after going outside to smoke. (6) Hypertension Current Visit: Yes Status: Chronic Assessment and plan: Controlled, continue current management Qualifiers: Hypertension type: essential hypertension Qualified Code(s): I10 - Essential (primary) hypertension (7) Medical non-compliance Current Visit: Yes Status: Chronic Assessment and plan: Patient requiring long-term IV antibiotics. Has been refusing doses at times. 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 Pending placement. (8) Uncontrolled diabetes mellitus Current Visit: Yes Status: Chronic Assessment and plan: FS better controlled Continue ADA diet, current insulin regimen FS ACHS monitoring Qualifiers: Diabetes mellitus type: type 2 Diabetes mellitus complication status: with other specified complication Diabetes mellitus shelter insulin use: unspecified shelter insulin use status Qualified Code(s): E11.69 - Type 2 diabetes mellitus with other specified complication; E11.65 - Type 2 diabetes mellitus with hyperglycemia - Subjective Interval history: Seen and evaluated, no new complains Rash has improved - Constitutional Vitals: Temp Pulse Resp BP Pulse Ox 97.9 F 75 15 117/81 94 04/22/17 06:21 04/22/17 06:21 04/22/17 06:21 04/22/17 06:21 04/22/17 06:21 General appearance: Present: cooperative, A&O X 3, pleasant, no acute distress, obese, answers questions appropriately - Head Head exam: Present: atraumatic, normocephalic - Eye Eye exam: Present: PERRL, conjuntiva pink, sclera anicteric Pupils: Present: PERRL - Neck Neck exam general surgery: Present: supple, trachea midline. Absent: lymphadenopathy - Respiratory Respiratory exam: Present: CTAB. Absent: accessory muscle use, rales, rhonchi, wheezes - Cardiovascular Cardiovascular exam: Present: RRR, +S1, +S2. Absent: diastolic murmur, gallop, rubs, systolic murmur - GI/Abdominal GI/Abdominal exam: Present: normal bowel sounds, soft, no peritoneal signs. Absent: distended, tenderness - Extremities Exam Extremities exam: Present: warm, radial pulses palpable and symmetrical. Absent : calf tenderness, cyanotic, pedal edema - Neurological Exam Neurological exam: Present: CN II-XII intact, oriented X3, no focal deficits. Absent: pronater drift, facial droop, speech deficit - Skin Skin exam: Present: dry, intact, rash (Improved) Internal Medicine: Result - Labs CBC & Chem 7: 04/22/17 05:40 04/22/17 05:40 Labs: Short CBC 04/22/17 Range/Units 05:40 WBC 6.5 (4.3-11.1) K/mcL Hgb 13.9 D (12.9-16.9) g/dL Hct 42.9 (37.5-50.1) % Plt Count 403 H (140-400) K/mcL Neutrophils # 3.9 (1.6-8.9) K/mcL BMP 04/22/17 05:40 Sodium 136 Potassium 4.1 Chloride 100 Carbon Dioxide 28 BUN 22 Creatinine 0.92 Glucose 169 H Calcium 9.8 - VTE Documentation of Mechanical Device: Graduated compression elastic hosiery Consult Discharge Plan - Plan Referrals: Unassigned,Provider [Primary Care Provider] - Corry Hdz CNP [Advanced Practice Nurse] - 05/08/17 9:00 am Zak De La Torre MD [Partnered Physician] - 04/26/17 10:20 am
--- NOTE | 2017-04-22 10:03 | Orthopedics Progress Note ---
Date of Encounter: 04/21/17 Time of Encounter: 12:15 Subjective Principal diagnosis: s/p right elbow I & D Interval history: Patient arm and right arm posterior splint. No complaints. Afebrile vital signs stable. Is neurovascularly intact with regard to his right upper extremity. Continue antibiotics. Discharge planning. Objective Vital signs: Vital Signs Temp Pulse Resp BP Pulse Ox 04/22/17 06:21 97.9 F 75 15 117/81 94 04/22/17 00:03 98.2 F 75 18 110/74 97 04/21/17 20:45 98.5 F 77 18 104/74 96 04/21/17 15:40 98.4 F 79 18 101/71 96 04/21/17 11:49 97.4 F L 82 18 124/82 96 Intake and Output 04/21/17 04/22/17 04/22/17 23:59 07:59 15:59 Intake Total 1100 / 1100 450 / 450 Output Total 0 / 0 400 / 400 Balance 1100 / 1100 50 / 50 Intake: IV Fluids 150 / 150 Levaquin Premix 750mg/150 150 / 150 mL 750 mg In 150 ml @ 100 mls/hr IVPB DAILY [facility] Rx#:[id number] Oral 950 / 950 450 / 450 Output: Urine 0 / 0 400 / 400 Other: # Voids 2 1 Blood Glucose* 245 143 - Labs CBC & BMP: 04/22/17 05:40 04/22/17 05:40 Labs: Abnormal lab results Plt Count 403 K/mcL (140-400) H 04/22/17 05:40 MPV 8.9 fL (9.4-12.4) L 04/22/17 05:40 ESR >= 130 mm/hr (0-10) H 04/13/17 06:27 Glucose 169 mg/dL (70-99) H 04/22/17 05:40 POC Glucose 245 (58-89) H 04/21/17 20:10 Hemoglobin A1c 12.1 % (-5.6) H 04/14/17 05:44 Magnesium 1.4 mg/dL (1.6-2.6) L 04/14/17 06:50 C-Reactive Protein 79 mg/L (Less than 5) H 04/13/17 06:27 - VTE Documentation of Mechanical Device: Graduated compression elastic hosiery Consult Discharge Plan - Plan Referrals: Unassigned,Provider [Primary Care Provider] - Corry Hdz CNP [Advanced Practice Nurse] - 05/08/17 9:00 am Zak De La Torre MD [Partnered Physician] - 04/26/17 10:20 am
--- NOTE | 2017-04-22 10:04 | Orthopedics Progress Note ---
Date of Encounter: 04/22/17 Time of Encounter: 10:04 Subjective Principal diagnosis: s/p right elbow I & D Interval history: Patient arm and right arm posterior splint. No complaints. Afebrile vital signs stable. Is neurovascularly intact with regard to his right upper extremity. Continue antibiotics. Discharge planning. Objective Vital signs: Vital Signs Temp Pulse Resp BP Pulse Ox 04/22/17 06:21 97.9 F 75 15 117/81 94 04/22/17 00:03 98.2 F 75 18 110/74 97 04/21/17 20:45 98.5 F 77 18 104/74 96 04/21/17 15:40 98.4 F 79 18 101/71 96 04/21/17 11:49 97.4 F L 82 18 124/82 96 Intake and Output 04/21/17 04/22/17 04/22/17 23:59 07:59 15:59 Intake Total 1100 / 1100 450 / 450 Output Total 0 / 0 400 / 400 Balance 1100 / 1100 50 / 50 Intake: IV Fluids 150 / 150 Levaquin Premix 750mg/150 150 / 150 mL 750 mg In 150 ml @ 100 mls/hr IVPB DAILY [facility] Rx#:[id number] Oral 950 / 950 450 / 450 Output: Urine 0 / 0 400 / 400 Other: # Voids 2 1 Blood Glucose* 245 143 - Labs CBC & BMP: 04/22/17 05:40 04/22/17 05:40 Labs: Abnormal lab results Plt Count 403 K/mcL (140-400) H 04/22/17 05:40 MPV 8.9 fL (9.4-12.4) L 04/22/17 05:40 ESR >= 130 mm/hr (0-10) H 04/13/17 06:27 Glucose 169 mg/dL (70-99) H 04/22/17 05:40 POC Glucose 245 (58-89) H 04/21/17 20:10 Hemoglobin A1c 12.1 % (-5.6) H 04/14/17 05:44 Magnesium 1.4 mg/dL (1.6-2.6) L 04/14/17 06:50 C-Reactive Protein 79 mg/L (Less than 5) H 04/13/17 06:27 - VTE Documentation of Mechanical Device: Graduated compression elastic hosiery Consult Discharge Plan - Plan Referrals: Unassigned,Provider [Primary Care Provider] - Corry Hdz CNP [Advanced Practice Nurse] - 05/08/17 9:00 am Zak De La Torre MD [Partnered Physician] - 04/26/17 10:20 am
[2017-04-22] MEDS: Acetaminophen 325 MG TABLET PO PRN ×2 (22:12)
[2017-04-23] MEDS: Acetaminophen 325 MG TABLET PO PRN (06:14)
[2017-04-23] MEDS: Ibuprofen 600 MG TABLET PO PRN (08:44)
[2017-04-23] MEDS: Insulin LISPRO 300 UNITS/3 ML VIAL SQ SCH ×7 (08:45→20:49)
[2017-04-23] MEDS: Insulin DETEMIR 100 UNIT/ML X5UNITS SQ SCH ×2 (08:45→20:50)
[2017-04-23] MEDS: Levofloxacin 750 MG/150 ML 750 MG/150 ML BAG IVPB SCH (08:48)
--- NOTE | 2017-04-23 11:06 | Internal Med Progress Note ---
<Kartik Roper - Last Filed: 04/23/17 16:57> Date of Encounter: 04/23/17 Time of Encounter: 11:06 - Assessment and plan (1) Septic joint of right elbow Current Visit: Yes Status: Acute Assessment and plan: Demonstrating clinical improvement, Status post I&D on 04/14/2017 with osteomyelitis noted during intraoperative procedure. - Wound cultures were positive for MSSA, pansensitive - Started on Levaquin 750 mg daily on 04/19/2017, after having a drug reaction to Ancef - Blood cultures are negative - Anaerobic coverage is her negative - EKG collected today demonstrates a QTC of 0.422 Plan: - Continue 6 weeks of antibiotic coverage with IV Levaquin, completed 1 week thus far - Obtain EKG weekly to monitor QTC progression - early childhood worker working on placement. 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 (4) Olecranon bursitis Current Visit: Yes Status: Acute Assessment and plan: Plan as discussed above. Qualifiers: Laterality: right Qualified Code(s): M70.21 - Olecranon bursitis, right elbow (5) Hypertension Current Visit: Yes Status: Chronic Assessment and plan: Controlled, continue current management Qualifiers: Hypertension type: essential hypertension Qualified Code(s): I10 - Essential (primary) hypertension (6) Tobacco abuse Current Visit: Yes Status: Chronic Assessment and plan: Patient has a history of tobacco abuse. Patient was counseled about smoking cessation, refuses at this time. Patient exited the unit frequently for smoking breaks (7) DVT prophylaxis Current Visit: Yes Status: Acute Assessment and plan: Early ambulation - Subjective Interval history: Mr. Sierra 48-year-old male has been seen about a patient bedside this morning. He is alert awake interactive and denies any pain in his elbow. He says that he is doing well ambulating without difficulty tolerating oral intake and having bowel movements and urinating without difficulties. Eyes any fevers , chills, sweating, chest pains, chest pressure, palpitations abdominal pains nausea vomiting diarrhea constipation. He states that he is waiting for placement seeking continue IV antibiotic therapy in the outpatient setting. He has homeless and has no where to live and thus cannot be discharged home. - Constitutional Vitals: Temp Pulse Resp BP Pulse Ox 98.7 F 93 16 134/87 95 04/23/17 10:30 04/23/17 10:30 04/23/17 10:30 04/23/17 10:30 04/23/17 10:30 General appearance: Present: cooperative, A&O X 3, pleasant, no acute distress, obese, answers questions appropriately Exam: General: Patient alert, awake, oriented 3, interactive, in no acute distress HEENT: Normocephalic, atraumatic, pupils equal reactive to light, nasal cavity patent and open septum median position, oral mucosa moist, uvula midline, neck supple trachea midline no palpable lymphadenopathy, no thyromegaly. Chest: Symmetric bilateral correlating with respiratory effort, effort nonlabored. Cardiac: Regular rate and rhythm, positive S1 and S2. no bruits appreciated bilateral carotids, Radial pulses 2+ bilateral, posterior tibial and dorsal pedal pulses 2+ bilateral. Respiratory: Clear to auscultation all lung young Abdomen: Soft, nontender, positive bowel sounds, no palpable masses appreciated on examination Extremities: Symmetric bilateral, bilateral lower extremities without erythema or edema, right elbow postsurgical site healing appropriately with bandage appropriate. Patient is neurovascularly intact Neurologic: No focal deficits appreciated on examination. Face symmetric, muscle strength symmetric bilateral upper and lower extremities. Internal Medicine: Result - Labs CBC & Chem 7: 04/22/17 05:40 04/22/17 05:40 - VTE Documentation of Mechanical Device: Graduated compression elastic hosiery Consult Discharge Plan - Plan Referrals: Unassigned,Provider [Primary Care Provider] - Corry Hdz CNP [Advanced Practice Nurse] - 05/08/17 9:00 am Zak De La Torre MD [Partnered Physician] - 04/26/17 10:20 am <Darrell Oro T - Last Filed: 04/23/17 17:09> Date of Encounter: 04/23/17 - Assessment and plan (1) Septic joint of right elbow Current Visit: Yes Status: Acute Qualifiers: Septic arthritis organism: staphylococcal Qualified Code(s): M00.021 - Staphylococcal arthritis, right elbow (2) Cellulitis of right elbow Current Visit: Yes Status: Acute (3) Olecranon bursitis Current Visit: Yes Status: Acute Qualifiers: Laterality: right Qualified Code(s): M70.21 - Olecranon bursitis, right elbow (4) DVT prophylaxis Current Visit: Yes Status: Acute (5) Tobacco abuse Current Visit: Yes Status: Chronic (6) Hypertension Current Visit: Yes Status: Chronic Qualifiers: Hypertension type: essential hypertension Qualified Code(s): I10 - Essential (primary) hypertension (7) Medical non-compliance Current Visit: Yes Status: Chronic (8) Uncontrolled diabetes mellitus Current Visit: Yes Status: Chronic Qualifiers: Diabetes mellitus type: type 2 Diabetes mellitus complication status: with other specified complication Diabetes mellitus alf insulin use: unspecified terminal gauger supervisor insulin use status Qualified Code(s): E11.69 - Type 2 diabetes mellitus with other specified complication; E11.65 - Type 2 diabetes mellitus with hyperglycemia - Constitutional Vitals: Temp Pulse Resp BP Pulse Ox 98.4 F 97 16 118/79 96 04/23/17 14:53 04/23/17 14:53 04/23/17 14:53 04/23/17 14:53 04/23/17 14:53 Internal Medicine: Result - Labs CBC & Chem 7: 04/22/17 05:40 04/22/17 05:40 - Attending Attestation I have independently seen and examined this patient on 04/23/17, reviewed the EMR and discussed plan of care with the patient and resident physician He is clinically stable, ambulatory, going in and out of the unit about 25 times daily to smoke/buy food. Physical exam is unremarkable. EKG today with normal QTc Plan is to continue current care
--- NOTE | 2017-04-23 18:14 | Orthopedics Progress Note ---
Date of Encounter: 04/23/17 Time of Encounter: 18:13 Subjective Principal diagnosis: s/p right elbow I & D Interval history: Patient arm and right arm posterior splint. No complaints. Afebrile vital signs stable. Is neurovascularly intact with regard to his right upper extremity. Continue antibiotics. Discharge planning. Objective Vital signs: Vital Signs Temp Pulse Resp BP Pulse Ox 04/23/17 14:53 98.4 F 97 16 118/79 96 04/23/17 10:30 98.7 F 93 16 134/87 95 04/23/17 08:45 95 04/23/17 06:42 98.2 F 86 18 127/86 96 04/23/17 00:09 97.7 F 85 18 120/80 98 04/22/17 20:30 97.9 F 90 18 118/81 99 04/22/17 20:00 99 Intake and Output 04/23/17 04/23/17 04/23/17 07:59 15:59 23:59 Intake Total 300 / 300 150 / 150 Output Total Balance 299 / 299 150 / 150 Intake: IV Fluids 150 / 150 Levaquin Premix 750mg/150 150 / 150 mL 750 mg In 150 ml @ 100 mls/hr IVPB DAILY [facility] Rx#:[id number] Oral 300 / 300 Output: Catheter Other: Weight 87.5 kg Blood Glucose* 288 78 151 Patient Weight 04/23/17 23:59 Weight 87.5 kg - Labs CBC & BMP: 04/22/17 05:40 04/22/17 05:40 Labs: Abnormal lab results Plt Count 403 K/mcL (140-400) H 04/22/17 05:40 MPV 8.9 fL (9.4-12.4) L 04/22/17 05:40 ESR >= 130 mm/hr (0-10) H 04/13/17 06:27 Glucose 169 mg/dL (70-99) H 04/22/17 05:40 POC Glucose 117 (58-89) H 04/22/17 11:39 Hemoglobin A1c 12.1 % (-5.6) H 04/14/17 05:44 Magnesium 1.4 mg/dL (1.6-2.6) L 04/14/17 06:50 C-Reactive Protein 79 mg/L (Less than 5) H 04/13/17 06:27 - VTE Documentation of Mechanical Device: Graduated compression elastic hosiery Consult Discharge Plan - Plan Referrals: Unassigned,Provider [Primary Care Provider] - Corry Hdz CNP [Advanced Practice Nurse] - 05/08/17 9:00 am Zak De La Torre MD [Partnered Physician] - 04/26/17 10:20 am
[2017-04-24] MEDS: Acetaminophen 325 MG TABLET PO PRN (04:36)
[2017-04-24] MEDS: Insulin LISPRO 300 UNITS/3 ML VIAL SQ SCH ×6 (08:06→16:32)
[2017-04-24] MEDS: Insulin DETEMIR 100 UNIT/ML X5UNITS SQ SCH (08:07)
[2017-04-24] MEDS: Levofloxacin 750 MG/150 ML 750 MG/150 ML BAG IVPB SCH (08:07)
--- NOTE | 2017-04-24 08:26 | Discharge Summary ---
<ShortyDarrell T - Last Filed: 04/24/17 13:45> Date of Encounter: 04/24/17 - Discharge Diagnosis (1) Septic joint of right elbow Status: Acute Qualifiers: Septic arthritis organism: staphylococcal Qualified Code(s): M00.021 - Staphylococcal arthritis, right elbow (2) Cellulitis of right elbow Status: Acute (3) Olecranon bursitis Status: Acute Qualifiers: Laterality: right Qualified Code(s): M70.21 - Olecranon bursitis, right elbow (4) DVT prophylaxis Status: Acute (5) Tobacco abuse Status: Chronic (6) Hypertension Status: Chronic Qualifiers: Hypertension type: essential hypertension Qualified Code(s): I10 - Essential (primary) hypertension (7) Medical non-compliance Status: Chronic (8) Uncontrolled diabetes mellitus Status: Chronic Qualifiers: Diabetes mellitus type: type 2 Diabetes mellitus complication status: with other specified complication Diabetes mellitus life consultant insulin use: unspecified life consultant insulin use status Qualified Code(s): E11.69 - Type 2 diabetes mellitus with other specified complication; E11.65 - Type 2 diabetes mellitus with hyperglycemia - Discharge Medications Prescriptions: levoFLOXacin [Levaquin] 750 mg PO DAILY 21 Days Home Medications: Atorvastatin Calcium [Lipitor] 20 mg PO DAILY 04/16/17 [History] Metformin HCl [Glucophage] 1,000 mg PO BID 04/16/17 [History] hydroCHLOROthiazide [Hydrochlorothiazide] 12.5 mg PO DAILY 04/16/17 [History] Acetaminophen [Tylenol] 650 mg PO Q6HR PRN tab 04/18/17 [Rx] Ibuprofen [Motrin] 600 mg PO TID PRN tab 04/18/17 [Rx] Insulin DETEMIR [Levemir] 10 unit SQ BID 04/18/17 [Rx] Lisinopril [Zestril] 5 mg PO DAILY tab 04/18/17 [Rx] levoFLOXacin [Levaquin] 750 mg PO DAILY 21 Days 04/24/17 [Rx] Allergies/Adverse Reactions: 3 Allergy/AdvReac Type Severity Reaction Status Date / Time No Known Allergies Allergy Verified 04/03/17 19:23 Procedures/tests Complete & Pending: Procedures Performed prior 72 hours Category Date Time Status ECG 12 lead ECG [ECG] Routine Y 04/23/17 11:40 Completed Date of admission: 04/13/17 08:37 Primary care physician: Provider Unassigned Consults: 04/13/17 10:11 Consult to Frontload Driver [CONS] Routine Reason for SW Consult: Unable to afford home medications 04/16/17 11:45 Consult to Invasive Line Access Team [CONS] Routine Reason for Consult: Picc Line Insertion Line Type: PICC - Patient Status Disposition: Left Against Medical Advice Condition: Serious - Ambulatory Orders Ambulatory Orders: ECG 12 lead ECG [ECG] Time Frame: 1 Week, Facility: [facility], Location: [facility] - Discharge Instructions Instructions: Cellulitis (DC) Follow Up With: Unassigned,Provider [Primary Care Provider] - Corry Hdz CNP [Advanced Practice Nurse] - 05/08/17 9:00 am Zak De La Torre MD [Partnered Physician] - 04/26/17 10:20 am Hospital course: Mr. Sierra is a 56 year old male - Time Spent with Patient Total time spent providing and/or coordinating discharge services: - Constitutional Vitals: Temp Pulse Resp BP Pulse Ox 97.7 F 91 18 109/76 98 04/24/17 11:49 04/24/17 11:49 04/24/17 11:49 04/24/17 11:49 04/24/17 11:49 - Attending Attestation I have independently seen and examined this patient on 04/24/17, reviewed the EMR and discussed plan of care with the patient and resident physician He is clinically stable, ambulatory, going in and out of the unit about 25 times daily to smoke/buy food. Physical exam is unremarkable. Today , patient decided not to wait for his rehab placement for IV antibiotics he wants to leave [place] to go and live with his friends. We have made SW aware for financial support He is AAOX3, has decisional capacity ad understands the risks of not completing treatment for his acute OM. Rest of details as in resident physician's documentation <Kartik Roper - Last Filed: 04/24/17 15:56> Date of Encounter: 04/24/17 Time of Encounter: 08:22 - Discharge Diagnosis (1) Septic joint of right elbow Priority: Primary Status: Acute Qualifiers: Septic arthritis organism: staphylococcal Qualified Code(s): M00.021 - Staphylococcal arthritis, right elbow (2) Uncontrolled diabetes mellitus Priority: Primary Status: Chronic Qualifiers: Diabetes mellitus type: type 2 Diabetes mellitus complication status: with other specified complication Diabetes mellitus prison insulin use: unspecified life consultant insulin use status Qualified Code(s): E11.69 - Type 2 diabetes mellitus with other specified complication; E11.65 - Type 2 diabetes mellitus with hyperglycemia (3) Cellulitis of right elbow Priority: Primary Status: Acute (4) Olecranon bursitis Priority: Primary Status: Acute Qualifiers: Laterality: right Qualified Code(s): M70.21 - Olecranon bursitis, right elbow (5) Hypertension Priority: Primary Status: Chronic Qualifiers: Hypertension type: essential hypertension Qualified Code(s): I10 - Essential (primary) hypertension (6) Tobacco abuse Priority: Secondary Status: Chronic (7) DVT prophylaxis Priority: Secondary Status: Acute Date of admission: 04/13/17 08:37 Primary care physician: Provider Unassigned Consults: 04/13/17 10:11 Consult to Frontload Driver [CONS] Routine Reason for SW Consult: Unable to afford home medications 04/16/17 11:45 Consult to Invasive Line Access Team [CONS] Routine Reason for Consult: Picc Line Insertion Line Type: PICC Discharging clinician: Kartik Roper Anticipated date of discharge: 04/24/17 - Patient Status Functional capacity at discharge: independent ambulation Overall status at discharge: patient is not back to baseline - Diet and Activity Activity: increase activity as tolerated Diet: advance to your usual diet, diabetic diet Interval History: Mr. Sierra 56-year-old male was admitted on March with cellulitis of the right elbow and olecranon bursitis. Is admitted to general medical floor and orthopedic surgery was consulted. An MRI with contrast of the right elbow has been ordered to confirm the suspicion of osteomyelitis and to evaluate the extent. 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 Antibiotic coverage was continued throughout his inpatient stay after sensitivity is established there was narrowing of antibiotic coverage. A PICC line was placed as the patient would require 6 weeks of IV antibiotic coverage for his osteomyelitis and septic bursitis. antique auto museum maintenance worker was involved to assist with establishment of rehabilitation and IV antibiotic administration in the outpatient setting as the patient was homeless and has limited resources and access. He remained in the inpatient setting until 04/24/2017 receiving antibiotic therapy, medical management of his other comorbid medical conditions including hypertension, uncontrolled diabetes. On 04/24/2017 Mr. Sierra decided that he no longer wanted to wait for rehabilitation and wished to leave AGAINST MEDICAL ADVICE. The risks of leaving without further therapy or placement were discussed with Mr. Sierra including bone destruction and joint destruction with his osteomyelitis and septic joints, sepsis and even the risk of without completing his antibiotic course. Mr. Sierra stated that he understands and even if we did find placement for him he still would not go. His plan is to get a ride back to [place]. I advised the patient that I do not agree with his decision to leave the hospital with his current state of medical health in the risks of decline in his current medical condition. Mr. Sierra stated he understands but still wishes to leave against my medical advice. I provided Mr. Sierra a prescription for levofloxacin 750 mg by mouth daily for 3 weeks, also an order for an EKG weekly to be evaluated by a primary care provider as he is on a medication and has a risk of arrhythmia. Mr. Sierra said he will find a provider back in [place]. Again I stressed that this is AGAINST MEDICAL ADVICE and that this is not our recommendation. Hospital course: Mr. Sierra is a 56 year old male - Time Spent with Patient Total time spent providing and/or coordinating discharge services: - Constitutional Vitals: Temp Pulse Resp BP Pulse Ox 98.1 F 93 18 110/81 95 04/24/17 06:55 04/24/17 06:55 04/24/17 06:55 04/24/17 06:55 04/24/17 06:55 General appearance: Present: cooperative, A&O X 3, pleasant, no acute distress, obese, answers questions appropriately - VTE Documentation of Mechanical Device: Graduated compression elastic hosiery
[2017-04-24 16:04] VITALS: BP 102/72
--- NOTE | 2017-04-25 14:26 | Electrocardiograph Report ---
[place] [id number] Test Date: 2017-04-23 Pat Name: Paxton Sierra Department: 114 Room: [facility] Gender: M Inlayer Silver: : 1960 Requested By: Darrell Oro Order Number: [id number] Reading MD: Tessy Montanez Measurements Intervals [place] Rate: 71 P: 53 SC: 175 QRS: -48 QRSD: 139 T: 64 QT: 400 QTc: 422 Interpretive Statements SINUS RHYTHM RIGHT BUNDLE BRANCH BLOCK LEFT ANTERIOR FASCICULAR BLOCK LEFT VENTRICULAR HYPERTROPHY AND ST-T CHANGE Electronically Signed On 04-25-2017 14:24:10 EDT by Tessy Montanez
== END 2017-04-24 17:49 | disposition left against medical advice (07) | DRG 315 ==
LOC: 3NENU 06:08 → EMEROO 06:08 → SUATTDRO 08:37 → 3NENU 09:11
PROVIDERS: ADMIT Internal Medicine; ATTEND Internal Medicine

== ENCOUNTER 2019-03-12 12:34 | Observation (INO) ==
[2019-03-12] MEDS ORDERED: Naloxone 0.4 MG/ML INJ IVP PRN (16:17)
--- NOTE | 2019-03-12 16:21 | Internal Med History&Physical ---
<Jennifer Tejada - Last Filed: 03/12/19 17:27> Date of Encounter: 03/12/19 Time of Encounter: 16:21 Internal Medicine - H&P: HPI Chief complaint: Foot ulcer Admitted From: Hospital to Hospital Transfer Plans for Post Hospital Care: Home History of present illness: Mr. Sierra is a 58 year old male with a past medical history of diabetes, hypertension, CVA, noncompliance presented to [facility] due to left foot pain from an ulcer. He was transferred from [facility] to [facility]. The patient reported that he noticed the left foot ulcer about 46 weeks ago when he started wearing a new pair shoes that rubbed his heel. Since then these noticed some pus in his socks. The ulcer hurts worse when he is walking and he does have some pain that radiates up his leg. He denies fever, chills, shortness breath, abdominal pain, nausea, vomiting. He is a current smoker of one pack per day for 40 years. He used to drink alcohol but no longer does. He reports smoking marijuana. Upon review of medical records he has significant history of noncompliance with his medication regimen. He has not taken his insulin in over a month or any blood pressure medication. He does not have a primary care provider. He also reports that he follows with a agricultural loan officer and is a registered sex offender. He is a full code. At [place] it was noted his vitals were acceptable. Glucose 354. Left foot x- ray showed mild soft tissue swelling. Minimal degenerative changes to 1st MTP joint. No evidence of osteomyelitis. The patient was given 1L IVF and insulin. Past Med Surg Social Fam HX - Past Medical History Attestation: Yes The following information was validated with the patient. Source: patient, old records reviewed Medical history: CVA, diabetes, hypertension Psychiatric history: no psych history - Past Surgical History Surgical History: herniorrhaphy - Social History Smoking Status: Current every day smoker Smokeless Tobacco Status: No Alcohol use: none Drug use: marijuana - Family History Father Living Status: Hx Family Cardiac Disorders: Yes (ID) Mother Living Status: Hx Family Cardiac Disorders: Yes Internal Medicine - H&P: Meds Folic Acid 1 mg PO DAILY tablet 08/12/18 [Rx] Allergy/AdvReac Type Severity Reaction Status Date / Time No Known Allergies Allergy Verified 04/03/17 19:23 All Systems PM: A 10-system review of systems was performed and is negative for pertinent findings except as documented above in the HPI. - Constitutional Constitutional: no chills, no fever(s), no malaise, no weakness - EENT Eyes: no blurry vision, no change in vision - Cardiovascular Cardiovascular ROS IM: no chest pain, no edema, no palpitations - Respiratory Respiratory: no cough, no dyspnea, no wheezing - Gastrointestinal Gastrointestinal: no abdominal pain, no diarrhea, no nausea, no vomiting - Integumentary Integumentary IM: erythema (Left heel), non-healing lesions, skin ulcer (Left heel) - Neurological Neurological ROS: no disequilibrium, no dizziness, no frequent falls - Endocrine Endocrine IM: no fatigue - Constitutional General appearance: Present: A&O X 3, pleasant, no acute distress Exam: 8 - Head Head exam: Present: atraumatic, normal inspection - Eye Eye exam: Present: normal appearance. Absent: scleral icterus - Respiratory Respiratory exam: Present: CTAB. Absent: rales, wheezes - Cardiovascular Cardiovascular exam: Present: RRR, +S1, +S2. Absent: clicks - GI/Abdominal GI/Abdominal exam: Present: normal bowel sounds, soft. Absent: distended, tenderness - Extremities Exam Extremities exam: Present: normal inspection. Absent: calf tenderness, pedal edema - Neurological Exam Neurological exam: Present: alert, oriented X3, no focal deficits - Psychiatric Psychiatric exam: Present: normal affect, normal mood - Skin Additional comments: Left heel stage II ulcer 3 x 2 cm. Purulent border Internal Med - H&P Results - Labs CBC & Chem 7: 03/12/19 16:17 - Assessment and Plan (1) Diabetic foot ulcer Current Visit: Yes Status: Acute Assessment and plan: -Left stage 2 heal ulcer 3 x 2 cm. Significant history of noncompliant diabetic who has not taken his insulin and over month. He noticed the ulcer about 4-6 weeks ago when he got a new pair shoes that rubbed his heel. He noted purulent fluid from it. -Left foot x-ray showed mild soft tissue swelling. Minimal degenerative changes to 1st MTP joint. No evidence of osteomyelitis. -Afebrile, hemodynamically stable -WBC WNL -ESR 21, CRP 16 -Left stage 2 heal ulcer 3 x 2 cm. minimal erythema around ulcer. Plan -will start Zosyn and doxycycline for pseudomonas and MRI the coverage since he has a diabetic foot ulcer and he is at risk for pseudomonas infection. Will plan to de-escalate antibiotics as able. -Will plan to consult podiatry tomorrow so that the patient will have follow-up upon discharge -Wound culture pending -will continue to care for including the left heel ulcer Qualifiers: Diabetic foot ulcer location: heel Diabetes mellitus type: type 2 Laterality: left Non-pressure ulcer stage: with fat layer exposed Qualified Code(s): E11.621 - Type 2 diabetes mellitus with foot ulcer; L97.422 - Non- 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 (2) Hypertension Current Visit: No Status: Chronic Assessment and plan: Patient reports history of hypertension. Review of records show that he was last discharged August 2018 on amlodipine. Currently his blood pressure is well-controlled. -Will not start hypertensive medication but will continue to monitor. Qualifiers: Hypertension type: essential hypertension Qualified Code(s): I10 - Essential (primary) hypertension (3) Tobacco abuse Current Visit: No Status: Chronic Assessment and plan: Current smoker of one pack per day for 40 years. Counseled on smoking cessation. (4) Medical non-compliance Current Visit: No Status: Chronic Assessment and plan: Patient has significant history of medical noncompliance. He is not taken his insulin and over a month or blood pressure medications. Social work consulted for discharge planning. He is also a registered sex offender and will have difficulty with placement as he is homeless. (5) DVT prophylaxis Current Visit: No Status: Acute Assessment and plan: Heparin SQ (6) Uncontrolled diabetes mellitus Current Visit: Yes Status: Chronic Assessment and plan: History of uncontrolled diabetes and noncompliance. The patient has not taken his insulin for over a month. -Glucose 354 -continue Levemir 5 units HS -continue letters sliding scale insulin -continue Accu check -continue diabetic diet Qualifiers: Diabetes mellitus type: type 2 Glycemic state: with hyperglycemia Qualified Code(s): E11.65 - Type 2 diabetes mellitus with hyperglycemia - Time Spent With Patient Total time spent is greater than 50% in coordination of care (as documented) at patient's floor/unit and/or counseling patient: <Val Juares - Last Filed: 03/12/19 17:49> Date of Encounter: 03/12/19 Internal Medicine - H&P: HPI History of present illness: Mr. Sierra is a 58 year old male All Systems PM: A 10-system review of systems was performed and is negative for pertinent findings except as documented above in the HPI. - Constitutional Vitals: Temp Pulse Resp BP Pulse Ox 98.1 F 76 18 120/74 100 03/12/19 16:48 03/12/19 16:48 03/12/19 16:48 03/12/19 16:48 03/12/19 16:48 Internal Med - H&P Results - Labs CBC & Chem 7: 03/12/19 16:17 03/12/19 16:17 Labs: Short CBC 03/12/19 Range/Units 16:17 WBC 7.5 (4.3-11.1) K/mcL Hgb 15.2 (12.9-16.9) g/dL Hct 44.4 (37.5-50.1) % Plt Count 290 (140-400) K/mcL Neutrophils # 5.2 (1.6-8.9) K/mcL BMP 03/12/19 16:17 Sodium 133 L Potassium 4.1 Chloride 101 Carbon Dioxide 25 BUN 25 H Creatinine 0.82 Glucose 311 H Calcium 8.9 Liver Function 03/12/19 Range/Units 16:17 Total Bilirubin 0.4 (0.3-1.0) mg/dL AST 13 (13-39) Units/L ALT 7 (7-52) Units/L Alkaline Phosphatase 73 (34-104) Units/L Albumin 3.5 (3.5-5.7) g/dL - Assessment and Plan (1) Hypertension Current Visit: No Status: Chronic Qualifiers: Hypertension type: essential hypertension Qualified Code(s): I10 - Essential (primary) hypertension (2) DVT prophylaxis Current Visit: No Status: Acute (3) Tobacco abuse Current Visit: No Status: Chronic (4) Medical non-compliance Current Visit: No Status: Chronic (5) Diabetic foot ulcer Current Visit: Yes Status: Acute Qualifiers: Diabetic foot ulcer location: heel Diabetes mellitus type: type 2 Laterality: left Non-pressure ulcer stage: with fat layer exposed Qualified Code(s): E11.621 - Type 2 diabetes mellitus with foot ulcer; L97.422 - Non- 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 (6) Uncontrolled diabetes mellitus Current Visit: Yes Status: Chronic Qualifiers: Diabetes mellitus type: type 2 Glycemic state: with hyperglycemia Qualified Code(s): E11.65 - Type 2 diabetes mellitus with hyperglycemia - Time Spent With Patient Total time spent is greater than 50% in coordination of care (as documented) at patient's floor/unit and/or counseling patient: - Attending Attestation I examined this patient and my medical decision-making was reviewed with the Resident Physician Dr tejada. I agree with the documented findings, disposition and treatment plan as described except to the extent set forth below. Mr Sierra was transferred to [facility] for cellulitis of the heel and diabetic foot wound. 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 awake, notes left heel with wound draining pus in recent days, no bleeding. denies fevers or chills. no n/v. otherwise feeling baseline. has [facility] home meds for one month since release from being incarcerated, including no diabetes meds. gen- alert, awake,appears stated age eyes- pupils equal round cv- reg rate and rhythm, normal s1,s2, no murmurs appreciated, warm ext lungs- ctabl, no wheezing, rhonchi or crackles, normal resp effort on room air skin- left heel quarter sized superficial appearing ulcer with yellow base, no drainage, + increased erythema of heel, no increased warmth neuro- AAOx3, CN grossly intact, no focal deficits Diabetic Foot Wound left heel Possible mild cellulitis of the heel -Iv zosyn + doxy, wound cx, will consult podiatry, check esr/crp, OSH xray reviewed and no demonstration of changes c/w osteo Uncontrolled DM, last A1C Aug 2018 14%- SSI, home levemir last dc is unclear (listed as 10 units bID in one place and 60 units HS in another), start with 5 units HS + SSI and will adjust HTN- currently normotensive, hold amlodipine at this time further diagnoses and plan as noted by resident get SW on board for assistance with dipso planning now as this has been an issue in the past given he is homeless and a reported felon without ability to go to custodial
[2019-03-12] MEDS ORDERED: D5% in Water 1,000 ML IVC PRN (16:24)
[2019-03-12] MEDS ORDERED: *HR* Dextrose 50 % in Water (Syg) 50 ML SYRINGE IVP PRN (16:24)
[2019-03-12] MEDS ORDERED: Dextrose Gel 15 GM/37.5 ML TUBE PO PRN ×2 (16:24)
--- NOTE | 2019-03-12 16:31 | Event Note ---
Date of Encounter: 03/12/19 Time of Encounter: 17:00 to serve as attending attestation pending completion of resident H&P I examined this patient and my medical decision-making was reviewed with the Resident Physician Dr tejada. I agree with the documented findings, disposition and treatment plan as described except to the extent set forth below. Mr Sierra was transferred to [facility] for cellulitis of the heel and diabetic foot wound. 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 awake, notes left heel with wound draining pus in recent days, no bleeding. denies fevers or chills. no n/v. otherwise feeling baseline. has [facility] d[facility] home meds for one month since release from being incarcerated, including no diabetes meds. gen- alert, awake,appears stated age eyes- pupils equal round cv- reg rate and rhythm, normal s1,s2, no murmurs appreciated, warm ext lungs- ctabl, no wheezing, rhonchi or crackles, normal resp effort on room air skin- left heel quarter sized superficial appearing ulcer with yellow base, no drainage, + increased erythema of heel, no increased warmth neuro- AAOx3, CN grossly intact, no focal deficits Diabetic Foot Wound left heel Possible mild cellulitis of the heel -Iv zosyn + doxy, wound cx, will consult podiatry, check esr/crp, OSH xray reviewed and no demonstration of changes c/w osteo Uncontrolled DM, last A1C Aug 2018 14%- SSI, home levemir last dc is unclear (listed as 10 units bID in one place and 60 units HS in another), start with 5 units HS + SSI and will adjust HTN- currently normotensive, hold amlodipine at this time further diagnoses and plan as noted by resident get SW on board for assistance with dipso planning now as this has been an issue in the past given he is homeless and a reported felon without ability to go to snf
[2019-03-12 17:15] LABS: Basophils # 0.1 K/mcL (0.0-0.2); Basophils % 0.7 %; Eosinophils # 0.1 K/mcL (0.0-0.6); Eosinophils % 1.3 %; Hematocrit 44.4 % (37.5-50.1); Hemoglobin 15.2 g/dL (12.9-16.9); Immature Granulocytes % 0.4 % (0-4); Lymphocytes # 1.5 K/mcL (0.6-4.6); Lymphocytes % 20.3 %; Mean Corpuscular HGB Conc 34.2 g/dL (31.6-35.5); Mean Corpuscular Volume 96.3 fL (83.0-100.0); Mean Platelet Volume 9.5 fL (9.4-12.4); Monocytes # 0.6 K/mcL (0.0-1.3); Monocytes % 8.1 %; Neutrophils # 5.2 K/mcL (1.6-8.9); Platelet Count 290 K/mcL (140-400); Red Blood Count 4.61 M/mcL (4.19-5.50); Red Cell Distribution Width 12.5 % (11.5-14.5); Segmented Neutrophils % 69.2 %; White Blood Count 7.5 K/mcL (4.3-11.1)
[2019-03-12 17:22] LABS: Prothrombin Time 10.9 Seconds (9.4-12.1)
[2019-03-12 17:33] LABS: Alanine Aminotransferase 7 Units/L (7-52); Albumin 3.5 g/dL (3.5-5.7); Albumin/Globulin Ratio 1.2 (1.1-2.2); Alkaline Phosphatase 73 Units/L (34-104); Aspartate Amino Transferase 13 Units/L (13-39); BUN/Creatinine Ratio 30 (6-26); Bilirubin,Total 0.4 mg/dL (0.3-1.0); Blood Urea Nitrogen 25 mg/dL (8-23); Calcium 8.9 mg/dL (8.6-10.3); Carbon Dioxide 25 mEq/L (23-29); Chloride 101 mEq/L (98-107); Glucose 311 mg/dL (70-105); Magnesium 1.7 mg/dL (1.6-2.6); Osmolality,Calculated 292 (280-300); Potassium 4.1 mEq/L (3.5-5.1); Sodium 133 mEq/L (136-145); Total Protein 6.5 g/dL (6.4-8.9); eGFR For African Americans > 60 (> 60); eGFR For Non-African Americans > 60 (> 60)
[2019-03-12] MEDS: Insulin LISPRO 300 UNITS/3 ML VIAL SQ SCH ×2 (18:08→21:52)
[2019-03-12] MEDS: Piperacillin/Tazobactam 3.375 GM in 0.9 % Sodium Chloride Mini Bag 100 ML IVPB SCH (18:11)
[2019-03-12] MEDS: *HR* Heparin 5,000 UNIT/ML VIAL SQ SCH (21:51)
[2019-03-12] MEDS: Doxycycline 100 MG CAPSULE PO SCH (21:52)
[2019-03-12] MEDS: Insulin DETEMIR 100 UNIT/ML X5UNITS SQ SCH (21:52)
[2019-03-13] MEDS: Piperacillin/Tazobactam 3.375 GM in 0.9 % Sodium Chloride Mini Bag 100 ML IVPB SCH ×2 (02:19→08:52)
[2019-03-13 02:48] LABS: BUN/Creatinine Ratio 25 (6-26); Blood Urea Nitrogen 21 mg/dL (8-23); Calcium 8.5 mg/dL (8.6-10.3); Carbon Dioxide 27 mEq/L (23-29); Chloride 104 mEq/L (98-107); Glucose 127 mg/dL (70-105); Magnesium 1.7 mg/dL (1.6-2.6); Osmolality,Calculated 291 (280-300); Potassium 3.5 mEq/L (3.5-5.1); Sodium 138 mEq/L (136-145); eGFR For African Americans > 60 (> 60); eGFR For Non-African Americans > 60 (> 60)
[2019-03-13] MEDS: *HR* Heparin 5,000 UNIT/ML VIAL SQ SCH ×3 (06:12→22:31)
[2019-03-13] MEDS: Insulin LISPRO 300 UNITS/3 ML VIAL SQ SCH ×4 (07:33→22:32)
[2019-03-13] MEDS: Doxycycline 100 MG CAPSULE PO SCH (08:52)
[2019-03-13] MEDS: Aspirin 81 MG TAB.CHEW PO SCH (08:52)
[2019-03-13] MEDS: Acetaminophen 325 MG TABLET PO PRN ×2 (08:58→16:43)
[2019-03-13 10:08] LABS: Estimated Average Glucose 318 mg/dl
--- NOTE | 2019-03-13 10:49 | Podiatry Consult Note ---
Date of Encounter: 03/13/19 Time of Encounter: 10:44 Assessment and Plan (1) Diabetic foot ulcer Current visit: Yes Status: Acute Assessment: Walton grade II ulcer noted to posterior calcaneous, slough noted to wound bed No erythema, edema, lymphangitis, or foul odor noted WBC 7.5, afebrile, ESR 21, CRP 18 Plan: Wound appears stable at this time, no plan for surgical intervention Dressing changed, see below Will order santyl to debride wound enzyematically Continue local wound care, nursing to change Recommend social service consult as patient is homeless, unable to provide wound care for self Follow up in wound care center with Dr. 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 Sierra is a 58 year old male who was transferred yesterday evening from [facility] for left diabetic foot ulcer. Patient is unknown to the podiatry group. PMH of HTN, DM II, and CVA. Reports smoking half a pack every 2 days when he can afford cigarettes, denies illicit drug use, denies alcohol abuse. Briefly, Mr. Sierra is a 58-year-old male who presented from [facility] for left foot ulcer. Patient reports he is homeless and that he cannot afford appropriate shoewear. Patient states 1 month ago he began having pain to the back of his left foot/calcaneus. Reports wearing shoe wear 12/03. States 2 weeks ago he decided to take his shoe off because he was having so much pain, and noticed a wound to the back of the foot. Denies any fevers, chills, nausea, vomiting, or diarrhea. Denies any calf pain, chest pain, or shortness of breath. Upon admission to [facility] left foot x-ray was completed and showed mild soft tissue edema, degenerative changes to the first MTPJ, and negative for osteomyelitis. WBC 7.5, ESR 21, CRP 18. Wound culture is pending at this time. Patient is concerned regarding how he is going to get home as he is homeless and cannot afford a ride back to [place]. Also reports he does not know how he is going to take care of left foot ulcer as his shoes are falling apart and he cannot afford wound supplies. Patient is agreeable to go to [facility] if able to place him. No other questions or concerns at this time. Past Med Surg Social Fam HX - Past Medical History Medical history: CVA, diabetes, hypertension Psychiatric history: no psych history - Past Surgical History Surgical History: herniorrhaphy - Social History Smoking Status: Current every day smoker Smokeless Tobacco Status: No Alcohol use: none Drug use: marijuana - Family History Father Living Status: Hx Family Cardiac Disorders: Yes ([place]) Mother Living Status: Hx Family Cardiac Disorders: Yes Medications and Allergies Folic Acid 1 mg PO DAILY tablet 08/12/18 [Rx] 3 Allergy/AdvReac Type Severity Reaction Status Date / Time No Known Allergies Allergy Verified 04/03/17 19:23 All Systems Reviewed: The remainder of the systems were reviewed and are negative - Constitutional Constitutional: no fever(s) - Cardiovascular Cardiovascular: other (pedal ulcer), no chest pain, no edema, no leg edema, no leg ulcers, no pedal edema - Respiratory Respiratory: no cough, no dyspnea - Musculoskeletal Musculoskeletal: numbness, tingling Physical Exam - Constitutional Vitals: Temp Pulse Resp BP Pulse Ox 98.0 F 61 16 105/71 93 03/13/19 07:03 03/13/19 07:03 03/13/19 07:03 03/13/19 07:03 03/13/19 07:03 Exam: Constitiutional: Alert and oriented x 3. Well nourished. No acute distress noted Vascular: 1/4 DP/PT bilaterally, CFT <3 sec to all digits, warm to warm from tibia to toes bilaterally, no calf pain with squeeze LLE Neurologic: Diminished sensation to touch, normal plantar response Dermatologic: Walton grade II ulcer noted to left posterior calcaneous, slough noted to wound bed, no erythema, edema, or foul odor noted. Hyperpigmentation noted. Musculoskeletal: 4/5 muscle strength and normal tone bilaterally. Results - Labs Result Diagrams: 03/12/19 16:17 03/13/19 01:33 Labs: Abnormal lab results ESR 21 mm/hr (0-10) H 03/12/19 16:18 Sodium 133 mEq/L (136-145) L 03/12/19 16:17 BUN 25 mg/dL (8-23) H 03/12/19 16:17 BUN/Creatinine Ratio 30 (6-26) H 03/12/19 16:17 Glucose 127 mg/dL (70-105) H 03/13/19 01:33 POC Glucose 218 mg/dL (70-99) H 03/12/19 19:49 Hemoglobin A1c 12.7 % (-5.6) H 03/13/19 01:33 Calcium 8.5 mg/dL (8.6-10.3) L 03/13/19 01:33 C-Reactive Protein 16 mg/L (Less than 10) H 03/12/19 16:18 H & H 03/12/19 Range/Units 16:17 Hgb 15.2 (12.9-16.9) g/dL Hct 44.4 (37.5-50.1) % All other labs normal. Consult Discharge Plan - Plan Additional Instructions: Follow up in wound care center 1 week s/p discharge Cleanse wound with warm water and soap daily, place santyl to wound bed, nickel thick, cover with 4x4 dry gauze, kerlix, and secure with medipore Referrals: NONE,PCP [Primary Care Provider] -
--- NOTE | 2019-03-13 13:20 | Internal Med Progress Note ---
<Val Juares - Last Filed: 03/13/19 13:34> Hospitalist Progress Note - Encounter Date of Encounter: 03/13/19 - Exam Vitals: Temp Pulse Resp BP Pulse Ox 98.2 F 88 20 159/83 96 03/13/19 10:57 03/13/19 10:57 03/13/19 10:57 03/13/19 10:57 03/13/19 10:57 - Assessment and Plan (1) Hypertension Current Visit: No Status: Chronic (2) DVT prophylaxis Current Visit: No Status: Acute (3) Tobacco abuse Current Visit: No Status: Chronic (4) Medical non-compliance Current Visit: No Status: Chronic (5) Diabetic foot ulcer Current Visit: Yes Status: Acute (6) Uncontrolled diabetes mellitus Current Visit: Yes Status: Chronic - Time Spent with Patient Total time spent is greater than 50% in coordination of care (as documented) at patient's floor/unit and/or counseling patient: Internal Medicine: Result - Labs CBC & Chem 7: 03/12/19 16:17 03/13/19 01:33 Labs: Short CBC 03/12/19 Range/Units 16:17 WBC 7.5 (4.3-11.1) K/mcL Hgb 15.2 (12.9-16.9) g/dL Hct 44.4 (37.5-50.1) % Plt Count 290 (140-400) K/mcL Neutrophils # 5.2 (1.6-8.9) K/mcL BMP 03/12/19 03/13/19 16:17 01:33 Sodium 133 L 138 Potassium 4.1 3.5 Chloride 101 104 Carbon Dioxide 25 27 BUN 25 H 21 Creatinine 0.82 0.85 Glucose 311 H 127 H Calcium 8.9 8.5 L Liver Function 03/12/19 Range/Units 16:17 Total Bilirubin 0.4 (0.3-1.0) mg/dL AST 13 (13-39) Units/L ALT 7 (7-52) Units/L Alkaline Phosphatase 73 (34-104) Units/L Albumin 3.5 (3.5-5.7) g/dL - ABG Interpretation ABG results: PT/INR, D-dimer PT 10.9 Seconds (9.4-12.1) 03/12/19 16:17 Consult Discharge Plan - Plan Additional Instructions: Follow up in wound care center 1 week s/p discharge Cleanse wound with warm water and soap daily, place santyl to wound bed, nickel thick, cover with 4x4 dry gauze, kerlix, and secure with medipore Referrals: NONE,PCP [Primary Care Provider] - Prescriptions: Insulin Glargine,Hum.rec.anlog [Basaglar Trixieikpen U-100] 5 unit SQ HS #1 pack - Attending Attestation I examined this patient and my medical decision-making was reviewed with the Resident Physician Dr tejada. I agree with the documented findings, disposition and treatment plan as described except to the extent set forth below. Mr Sierra was transferred to [facility] for cellulitis of the heel and diabetic foot wound. awake, no pain in foot, fevers or chills. no drainage today. gen- alert, awake,appears stated age cv- reg rate and rhythm, normal s1,s2, lungs- ctabl, normal resp effort on room air skin- dressing to heel c/d/i neuro- AAOx3 Diabetic Foot Wound left heel Possible mild cellulitis of the heel -de escalate abx to doxy, follow wound cx, wound care as per podiatry and wound clinic follow up (schedule prior to dc) Uncontrolled DM, last A1C Aug 2018 14%- SSI, levemir, will need rxs prior to dc and SW confirmed he has insurance to cover meds as needed HTN-variable BPs, hold amlodipine at this time <Monroe Mcintyre - Last Filed: 03/13/19 16:44> Hospitalist Progress Note - Encounter Date of Encounter: 03/13/19 Time of Encounter: 09:00 - Subjective Interval History: Patient seen at bedside this morning. Patient reports very mild pain from left foot with some radiation up leg. Has good relief from tylenol. No fevers/chills. Ulcer is stage 2 with some sloughing and visible fat. No drainage today. Podiatry consulted, will follow-up outpatient, wound care on board. No erythema/warmth, X-ray at OSH revealed no evidence osteo. On Doxy, anticipate D/C tomorrow. Of note, the patient did attempt to leave the premises with IV in place so that he could smoke. Was stopped by staff, I personally informed him of the impact his tobacco abuse has on his would. Patient voiced understanding and was given a nicotine patch. - Exam Vitals: Temp Pulse Resp BP Pulse Ox 98.2 F 88 20 159/83 96 03/13/19 10:57 03/13/19 10:57 03/13/19 10:57 03/13/19 10:57 03/13/19 10:57 Exam: Gen: alert and oriented x 3, NAD Head: atraumatic, normocephalic Eyes: anicteric, EOMI ENT: oropharynx clear, MMM, poor dentition Neck: no lymphadenopathy, thyromegaly CV: RRR, no mumurs, normal S1S2 Resp: significant wheeze and rhonchi throughout all lung young, with productive cough on deep inspiration, nonlabored breathing Abd: soft, nontender, nondistended, no organomegaly Ext: no rashes, no edema, 2x3cm stage 2 ulcer noted on left heel, non-draining, no purulence, fat pad noticeable - Assessment and Plan (1) Diabetic foot ulcer Current Visit: Yes Status: Acute Assessment and Plan: Stage 2, 2x3cm, no purulence, no drainage 2/2 uncontrolled T2DM and Tobacco Abuse X-ray shows edema, no evidence of Osteo Podiatry consulted, recommend no interventions at this time Will follow-up outpatient in the wound clinic Wound cultures obtained Currently on IV Doxy (2) Uncontrolled diabetes mellitus Current Visit: Yes Status: Chronic Assessment and Plan: Known history of T2DM significant history of medication non-adherence Blood sugars significantly improved with 5units Levemir Patient will be DC'd with script for basaglar SW confirmed insurance coverage Will continue SSI and 5units levamir HS while here (3) Medical non-compliance Current Visit: No Status: Chronic Assessment and Plan: Significant history of non-compliance Poorly controlled diabetes SW has confirmed all rxs for discharge have been approved by insurance Patient has been counseled on the importance of adhering to his insulin regimen (4) Tobacco abuse Current Visit: No Status: Chronic Assessment and Plan: This is contributing to his non-healing ulcer Has been counseled about the significant link between Smoking and chronic wou nds Attempted to exit the hospital to smoke with IV in place Was prevented from doing this by staff Nicotine patch ordered (5) Hypertension Current Visit: No Status: Chronic Assessment and Plan: Patient has a known history of HTN BP stable during admission Norvasc on hold at this time will monitor DVT Prophylaxis: heparin subQ - Time Spent with Patient Total time spent is greater than 50% in coordination of care (as documented) at patient's floor/unit and/or counseling patient: Internal Medicine: Result - Labs CBC & Chem 7: 03/12/19 16:17 03/13/19 01:33 Labs: Short CBC 03/12/19 Range/Units 16:17 WBC 7.5 (4.3-11.1) K/mcL Hgb 15.2 (12.9-16.9) g/dL Hct 44.4 (37.5-50.1) % Plt Count 290 (140-400) K/mcL Neutrophils # 5.2 (1.6-8.9) K/mcL BMP 03/12/19 03/13/19 16:17 01:33 Sodium 133 L 138 Potassium 4.1 3.5 Chloride 101 104 Carbon Dioxide 25 27 BUN 25 H 21 Creatinine 0.82 0.85 Glucose 311 H 127 H Calcium 8.9 8.5 L Liver Function 03/12/19 Range/Units 16:17 Total Bilirubin 0.4 (0.3-1.0) mg/dL AST 13 (13-39) Units/L ALT 7 (7-52) Units/L Alkaline Phosphatase 73 (34-104) Units/L Albumin 3.5 (3.5-5.7) g/dL - ABG Interpretation ABG results: PT/INR, D-dimer PT 10.9 Seconds (9.4-12.1) 03/12/19 16:17 <Val Juares - Last Filed: 03/13/19 13:34> (1) Hypertension Qualifiers: Hypertension type: essential hypertension Qualified Code(s): I10 - Essential (primary) hypertension (5) Diabetic foot ulcer Qualifiers: Diabetic foot ulcer location: heel Diabetes mellitus type: type 2 Laterality: left Non-pressure ulcer stage: with fat layer exposed Qualified Code(s): E11.621 - Type 2 diabetes mellitus with foot ulcer; L97.422 - Non- 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 (6) Uncontrolled diabetes mellitus Qualifiers: Diabetes mellitus type: type 2 Glycemic state: with hyperglycemia Qualified Code(s): E11.65 - Type 2 diabetes mellitus with hyperglycemia <Monroe Mcintyre M - Last Filed: 03/13/19 16:44> (1) Diabetic foot ulcer Qualifiers: Diabetic foot ulcer location: heel Diabetes mellitus type: type 2 Laterality: left Non-pressure ulcer stage: with fat layer exposed Qualified Code(s): E11.621 - Type 2 diabetes mellitus with foot ulcer; L97.422 - Non- 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 (2) Uncontrolled diabetes mellitus Qualifiers: Diabetes mellitus type: type 2 Glycemic state: with hyperglycemia Qualified Code(s): E11.65 - Type 2 diabetes mellitus with hyperglycemia (5) Hypertension Qualifiers: Hypertension type: essential hypertension Qualified Code(s): I10 - Essential (primary) hypertension
[2019-03-13] MEDS ORDERED: Ipratropium/Albuterol Neb 3 ML IH PRN (14:54)
[2019-03-13] MEDS: Nicotine 14 MG PATCH.TD24 TD SCH (16:37)
[2019-03-13] MEDS: Doxycycline 100 MG in 0.9 % Sodium Chloride Mini Bag 100 ML IVPB SCH (16:44)
[2019-03-13] MEDS: Insulin DETEMIR 100 UNIT/ML X5UNITS SQ SCH (22:31)
[2019-03-14] MEDS: Doxycycline 100 MG in 0.9 % Sodium Chloride Mini Bag 100 ML IVPB SCH (05:37)
[2019-03-14] MEDS: *HR* Heparin 5,000 UNIT/ML VIAL SQ SCH ×2 (05:37→14:39)
[2019-03-14] MEDS: Nicotine 14 MG PATCH.TD24 TD SCH (08:50)
[2019-03-14] MEDS: Aspirin 81 MG TAB.CHEW PO SCH (08:50)
[2019-03-14] MEDS: Insulin LISPRO 300 UNITS/3 ML VIAL SQ SCH ×2 (08:51→11:46)
--- NOTE | 2019-03-14 10:54 | Discharge Summary ---
<Monroe Mcintyre - Last Filed: 03/14/19 19:15> - NOTES TO OUTPATIENT PROVIDER Notes to Outpatient Provider: Patient admitted for diabetic foot ulcer of the heel, stage II, 2 x 3 cm. Last A1c 14%. Wound care provided by podiatry, outpatient appointment with podiatry and wound care unable to be set up [facility] to patient's inability to follow-up in [place]. The patient was provided with ample supplies for dressing changes. Additionally he was given generic insulin pens with glucometer, lancets, test strips. He was discharged with a 4 day supply of doxycycline to complete a 7 day course secondary to wound culture growing MRSA, sensitive to doxycycline. Patient was advised to follow- up with a primary care provider and arrangements were provided however the patient declined to follow-up. Orders not resulted at time of discharge: Pending orders 03/12/19 17:50 Culture,Wound [RM] Routine Date of Encounter: 03/14/19 Time of Encounter: 09:00 - Discharge Diagnosis (1) Diabetic foot ulcer Priority: Primary Status: Acute Qualifiers: Diabetic foot ulcer location: heel Diabetes mellitus type: type 2 Laterality: left Non-pressure ulcer stage: with fat layer exposed Qualified Code(s): E11.621 - Type 2 diabetes mellitus with foot ulcer; L97.422 - Non- 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 (2) Uncontrolled diabetes mellitus Priority: Secondary Status: Chronic Qualifiers: Diabetes mellitus type: type 2 Glycemic state: with hyperglycemia Qualified Code(s): E11.65 - Type 2 diabetes mellitus with hyperglycemia (3) Medical non-compliance Priority: Secondary Status: Chronic (4) Tobacco abuse Priority: Secondary Status: Chronic (5) Hypertension Priority: Secondary Status: Chronic Qualifiers: Hypertension type: essential hypertension Qualified Code(s): I10 - Essential (primary) hypertension Hospital course: Mr. Sierra is a 58 year old male with a past medical history of medication noncompliance, uncontrolled diabetes, last hemoglobin A1c 14%, tobacco abuse hypertension who presented to the emergency department with the complaint of left foot ulcer. Patient states that he noticed this ulcer about 4 weeks ago and then it has been worsening in the last couple days. This is a chronic nonhealing ulcer secondary to the patient's diabetes and it began as a result of new shoes that the patient reports were wearing into the back of his heel. Patient denies significant drainage, redness, warmth, radiating pains, fevers, chills, nausea, vomiting. Emergency Department, imaging revealed that there was some soft tissue edema and some degenerative changes of his distal MTP joint however there was no no evidence of osteomyelitis. On exam patient vitals were normal, he was neurovascularly intact, capillary refill less than 2 seconds, strength and sensation intact, and the patient did have a 2 x 3 cm stage II ulcer to his left heel. lab workup revealed significantly elevated blood sugar, no white count, mildly elevated CRP 16, mildly elevated ESR 21. Patient was started on Zosyn pending wound cultures. He was started on 5 units basal insulin. His morning sugars significantly improved the following day, his blood pressures are stable. At the time of discharge wound cultures revealed MRSA that was sensitive to doxycycline and the patient was switched to oral doxycycline and given for days worse of medication to complete a total of 7 days of treatment. Additionally, he was given insulin, glucometer, test strips, lancets for the management of his chronically uncontrolled diabetes. He was advised to follow-up in the wound care clinic and an appointment was made however the patient reports he will not be coming to the appointment because he lives in [place] and has no way of get ting here. He was given dressing changes and wound care supplies for outpatient management. Additionally the patient was attempted to be set up with a primary care provider however he declined that resource. The patient was instructed on proper wound care methods and educated on the utilization of his insulin and test strips. He was agreeable to the plan of care at the time of discharge. Discharge discussed with: patient, nurse Time spent discussing smoking cessation with patient: more than 10 minutes - Time Spent with Patient Total time spent providing and/or coordinating discharge services: Time spent: Greater than 30 minutes - Discharge Medications Prescriptions: New Insulin Glargine,Hum.rec.anlog [Aaron Abreu U-100] 5 unit SQ HS #1 pack Doxycycline 100 mg PO BID 4 Days #8 capsule Collagenase Oint [Santyl] 1 appl TP DAILY 30 Days #1 tube Continued Albuterol Sulfate [Ventolin Hfa] 2 puff IH Q4H PRN PRN Reason: Shortness Of Breath Home Medications: Albuterol Sulfate [Ventolin Hfa] 2 puff IH Q4H PRN 03/13/19 [History] Insulin Glargine,Hum.rec.anlog [Harmanaglhillary Marcumikpen U-100] 5 unit SQ HS #1 pack 03/13/19 [Rx] Collagenase Oint [Santyl] 1 appl TP DAILY 30 Days #1 tube 03/14/19 [Rx] Doxycycline 100 mg PO BID 4 Days #8 capsule 03/14/19 [Rx] Allergies/Adverse Reactions: Allergy/AdvReac Type Severity Reaction Status Date / Time No Known Allergies Allergy Verified 03/13/19 16:47 Date of admission: 03/12/19 15:40 Primary care physician: PCP NONE Consults: 03/12/19 17:26 Consult to Medical Record Administrator (W&C) [CONS] Routine Reason For Exam: Reason for SW Consult: homeless, d/c planning 03/13/19 11:49 Consult to Podiatry [CONS] Routine Consulting Provider: [facility] Reason for Consult: diabetic foot ulcer Call Completed: Yes Discharging clinician: Monroe Mcintyre - Constitutional Vitals: Temp Pulse Resp BP Pulse Ox 97.7 F 64 18 103/70 93 03/14/19 06:54 03/14/19 06:54 03/14/19 06:54 03/14/19 06:54 03/14/19 06:54 General appearance: Present: A&O X 3, pleasant, no acute distress Exam: Gen: alert and oriented x 3, NAD Head: atraumatic, normocephalic Eyes: anicteric, EOMI ENT: oropharynx clear, MMM, poor dentition Neck: no lymphadenopathy, thyromegaly CV: RRR, no mumurs, normal S1S2 Resp: significant wheeze and rhonchi throughout all lung young, with productive cough on deep inspiration, nonlabored breathing Abd: soft, nontender, nondistended, no organomegaly Ext: no rashes, no edema, 2x3cm stage 2 ulcer noted on left heel, non-draining, no purulence, fat pad noticeable - Patient Status Disposition: Home, Self-Care Condition: Fair Functional capacity at discharge: independent ambulation Overall status at discharge: patient is progressing back to baseline - Discharge Instructions Instructions: Diabetic Foot Care (DC), Acute Wound Care (DC), Diabetic Hyperglycemia (DC) Follow Up With: NONE,PCP [Primary Care Provider] - Additional Instructions: Follow up in wound care center 1 week s/p discharge Cleanse wound with warm water and soap daily, place santyl to wound bed, nickel thick, cover with 4x4 dry gauze, kerlix, and secure with medipore You will need to take your antibiotic, doxycycline, twice per day for 4 more days for resolution of your infected wound. You are to use the lancets and test strips with the glucometer to assess your blood sugar 3 times a day with meals and you are to administer 5 units of insulin at bedtime every day. Though we have attempted to set you up with a primary care provider in the [facility] clinic you have declined. We strongly advise you to attempt to set up a primary care provider in the future for the management of your chronically uncontrolled diabetes. Additionally we have strongly advise that you stop smoking as this will only exacerbate your wounds inability to heal. Should you decide that you would ultimately like a primary care provider we would be happy to take you at the residency clinic and you may call our office to set up that appointment anytime in the future. You may return to the emergency department should you develop significant drainage, warmth, redness, fevers, chills associated with your foot ulcer. - Diet and Activity Activity: increase activity as tolerated Diet: diabetic diet <Val Juares - Last Filed: 03/15/19 07:30> Date of Encounter: 03/15/19 - Discharge Diagnosis (1) Hypertension Status: Chronic Qualifiers: Hypertension type: essential hypertension Qualified Code(s): I10 - Essential (primary) hypertension (2) DVT prophylaxis Status: Acute (3) Tobacco abuse Status: Chronic (4) Medical non-compliance Status: Chronic (5) Diabetic foot ulcer Status: Acute Qualifiers: Diabetic foot ulcer location: heel Diabetes mellitus type: type 2 Laterality: left Non-pressure ulcer stage: with fat layer exposed Qualified Code(s): E11.621 - Type 2 diabetes mellitus with foot ulcer; L97.422 - Non- 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 Sierra is a 58 year old male - Time Spent with Patient Total time spent providing and/or coordinating discharge services: Date of admission: 03/12/19 15:40 Primary care physician: PCP NONE Consults: 03/12/19 17:26 Consult to Medical Record Administrator (W&C) [CONS] Routine Reason For Exam: Reason for SW Consult: homeless, d/c planning 03/13/19 11:49 Consult to Podiatry [CONS] Routine Consulting Provider: [facility] Reason for Consult: diabetic foot ulcer Call Completed: Yes - Constitutional Vitals: Temp Pulse Resp BP Pulse Ox 98.2 F 76 18 97/71 95 03/14/19 11:17 03/14/19 11:17 03/14/19 11:17 03/14/19 11:17 03/14/19 11:17 - Attending Attestation I examined this patient and my medical decision-making was reviewed with the Resident Physician Dr tejada. I agree with the documented findings, disposition and treatment plan as described except to the extent set forth below. Mr Sierra was transferred to [facility] for cellulitis of the heel and diabetic foot wound. He is discharged in stable condition. He is homeless and lives in [place]. He was offered [facility] follow up and rec to go to wound clinic and he declined both due to not living here (though he requested transfer to here bc he "likes it here"). Offered to attempt to get him a PCP appt in [facility] which he also declined. He states he will find one before his month supply of insulin runs out. Nursing educated him on wound dressing changes and he was provided supplies, also diabetic testing supplies, and insulin was in hand as was abx at time of discharge. awake, no pain in foot, fevers or chills. he has no complaints. discharge plan discussed in detail gen- alert, awake,appears stated age cv- reg rate and rhythm, normal s1,s2, no le edema lungs- ctabl, normal resp effort on room air skin- dressing to heel c/d/i neuro- AAOx3 Diabetic Foot Wound left heel Possible mild cellulitis of the heel -wound cx resulted and reviewed, sensitive to doxy, complete course PO, refused wound clinic appt, wound care education provided , is home less so can't arrange [facility] Uncontrolled DM, last A1C Aug 2018 14%- levemir dose converted to basaglar for discharge by pharmacy, diabetic supplies provided, needs a pcp, refused for us to set up, knows how ot use his testing supplies HTN-variable BPs, not consistently elevated, did not dc on prior home norvasc, pcp follow up time spent on dc 45 min
[2019-03-14 11:21] VITALS: BP 97/71
[2019-03-14] MEDS: Acetaminophen 325 MG TABLET PO PRN (11:49)
--- NOTE | 2019-03-14 19:21 | Event Note ---
Date of Encounter: 03/14/19 Time of Encounter: 09:45 to serve as attending attestation pending [id number] of resident dc summary I examined this patient and my medical decision-making was reviewed with the Resident Physician Dr tejada. I agree with the documented findings, disposition and treatment plan as described except to the extent set forth below. Mr Sierra was transferred to [facility] for cellulitis of the heel and diabetic foot wound. He is discharged in stable condition. He is homeless and lives in [place]. He was offered [facility] follow up and rec to go to wound clinic and he declined both due to not living here (though he requested transfer to here bc he "likes it here"). Offered to attempt to get him a PCP appt in [facility] which he also declined. He states he will find one before his month supply of insulin runs out. Nursing educated him on wound dressing changes and he was provided supplies, also diabetic testing supplies, and insulin was in hand as was abx at time of discharge. awake, no pain in foot, fevers or chills. he has no complaints. discharge plan discussed in detail gen- alert, awake,appears stated age cv- reg rate and rhythm, normal s1,s2, no le edema lungs- ctabl, normal resp effort on room air skin- dressing to heel c/d/i neuro- AAOx3 Diabetic Foot Wound left heel Possible mild cellulitis of the heel -wound cx resulted and reviewed, sensitive to doxy, complete course PO, refused wound clinic appt, wound care education provided , is home less so can't arrange [facility] Uncontrolled DM, last A1C Aug 2018 14%- levemir dose converted to basaglar for discharge by pharmacy, diabetic supplies provided, needs a pcp, refused for us to set up, knows how ot use his testing supplies HTN-variable BPs, not consistently elevated, did not dc on prior home norvasc, pcp follow up time spent on dc 45 min
== END 2019-03-14 16:53 | disposition home or self-care (01) ==
LOC: 3NENU → SUATTDRO 16:25
PROVIDERS: ADMIT Internal Medicine; ATTEND Internal Medicine